=== PATIENT | male | born 1935 | race Caucasian/White ===

== ENCOUNTER 2020-10-27 18:25 | Inpatient (IN) | payer MEDICARE ==
--- NOTE | 2020-10-27 18:55 | NUR ---
ON UNIT PT TRANSPORTED ONTO UNIT VIA W/C BY SECURITY AND LAW ENFORCEMENT, NO ACUTE DISTRESS NOTED AT THIS TIME. PT IS ALERT AND ORIENTED X 2, ABLE TO ANSWER QUESTIONS APPROPRIATELY.
[2020-10-27 19:10] VITALS: BP 140/92
--- NOTE | 2020-10-27 19:10 | NUR ---
NOTIFICATION DR. WHITING AND DR. CELESTIN NOTIFIED OF PT ON UNIT. RECEIVED ORDERS FROM DR. WHITING FOR STAT EKG.
--- NOTE | 2020-10-27 19:12 | NUR ---
RT RT NOTIFIED OF NEED FOR STAT EKG.
--- NOTE | 2020-10-27 19:25 | NUR ---
STATUS Sarah KOHLI RN OBTAINING APICAL PULSE FROM PT, WHEN PT REPORTED FEELING "LIGHTHEADED." PT WAS ASSISTED TO BED AND PLACED IN SF POSITION BY Sarah KOHLI RN AND Alok JEFFERS LVN. PT RESPONDING APPROPRIATELY, MANUAL BP OF 140/94 OBTAINED, FSBS 218. PT STATES, "I GET THESE SPELLS ALL THE TIME AT HOME, AND I TAKE ONE OF THOSE WHITE LITTLE PILLS THAT GETS ME FROM A TO B." CHEST RISE AND FALL SYMMETRICAL AND NONLABORED, DENIES CHEST PAIN/DISCOMFORT AT THIS TIME. Sarah KOHLI RN IN ROOM WITH PT AT THIS TIME.
--- NOTE | 2020-10-27 19:41 | NUR ---
RT RT AT BEDSIDE TO OBTAIN EKG.
--- NOTE | 2020-10-27 19:45 | PCM.EKG ---
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
--- NOTE | 2020-10-27 19:45 | NUR ---
HOSPITALIST DR WHITING IN PATIENTS ROOM. AFTER ASSESS OF PATIENT AND EKG, SYMPTOMS OF PATIENT DIZZINESS, SHORTNESS OF BREATH, DENIES CHEST PAIN BUT VOICES FEELING FUNNY DR WHITING ORDERED PATIENT TO BE ADMITTED TO [facility] UNIT FOR CARDIAC MONITORING DX A FIB. CONTACTED [facility], MESSAGE LEFT WITH DIEGO FOR ADMISSION.
--- NOTE | 2020-10-27 20:00 | NUR ---
PER CONTACT WITH INNA ON [facility] PATIENT ROOM NUMBER WILL BE [id number], REPORT GIVEN TO INNA. PATIENT RESTING IN BED , VOICED HE WAS HUNGRY, SANDWICH AND DIET COKE GIVEN. ALSO NOTIFIED DR CELESTIN OF PATIENT TO BE ADMITTED TO [facility], NOT ADMITTED TO [facility] AT THIS TIME DUE TO MEDICAL.
[2020-10-27] MEDS ORDERED: TRIA15OI TP (20:09)
[2020-10-27] MEDS ORDERED: METF10007 PO (20:09)
[2020-10-27] MEDS ORDERED: MUPI1OIN6 TP (20:09)
[2020-10-27] MEDS ORDERED: GLIP5TAB10 PO (20:09)
[2020-10-27] MEDS ORDERED: ATOR40TA PO (20:09)
[2020-10-27] MEDS ORDERED: [UNRECOGNIZED DRUG - CODE] PO (20:09)
[2020-10-27] MEDS ORDERED: CLIN300C9 PO (20:09)
[2020-10-27] MEDS ORDERED: FAMO20TA5 PO (20:09)
[2020-10-27] MEDS ORDERED: FERR325T15 PO (20:09)
[2020-10-27] MEDS ORDERED: RAMI10CA59 PO (20:09)
--- NOTE | 2020-10-27 20:29 | PCM.HP ---
History of Present Illness Hx of Present Illness 85-year-old male with past medical history for heart disease, diabetes, chronic left foot wound presented to ER today due to dizziness. Patient has been experiencing 2 to 3 days of lightheadedness and dizziness when patient would get up would feel very dizzy and would have to lay down. Due to this patient went to ER at outside facility, at ER they found that he was having behavioral issues and to part because he believes that there are some "worms inside his left leg and sees a face looking out at him" in the wound in his left leg. Patient was then transferred from the outside ER to this facility to the behavioral health unit. In the behavioral health unit in the [facility], patient also noted feeling some lightheadedness, and short of breath. Patient otherwise denies any fevers, chills, chest pain, nausea, vomiting, palpitations, dysuria. Patient has some mild pain in his left leg but it is chronic. Patient denies the wound getting any larger but states that he can "hear the worms and insects in his legs eating his leg." Past medical history, heart disease, diabetes Surgical history: Denies any past medical surgical history Family history: Denies any family history Social: Patient was a heavy smoker alcohol user in the past but quit more than 10 years ago. Denies any illicit drug use Allergies: Denies any known drug allergies Review of Systems Constitutional: Weakness; No: Fever, Chills, Sweats Respiratory: Shortness of breath; No: Cough, Dry Cardiovascular: No: Chest Pain, Palpitations Gastrointestinal: No: Nausea, Vomiting Genitourinary: No Dysuria, No Frequency Skin: Rash, Lesions Neurological: Confusion; No: Weakness, Numbness Scheduled Atorvastatin 40MG (Lipitor 40MG), 1 TAB PO DAILY, (Reported) Clindamycin Hcl (Clindamycin Hcl), 300 MG PO DAILY24, (Reported) Famotidine (Famotidine), 1 TAB PO BID, (Reported) Ferrous Sulfate (Ferrous Sulfate), 1 TAB PO DAILY, (Reported) Glipizide (Glipizide), 1 TAB PO DAILY, (Reported) Meclizine Hcl (Meclizine Hcl), 12.5 MG PO DAILY24, (Reported) Metformin Hcl (Metformin Hcl), 1 TAB PO BID, (Reported) Mupirocin (Mupirocin), 1 APPLIC TP DAILY24, (Reported) Ramipril (Ramipril), 1 CAP PO QD, (Reported) Triamcinolone Acetonide (Triamcinolone Acetonide), 1 APPLIC TP DAILY24, (Reported) VTE VTE Risk Score VTE Risk: Score 0-1 = Low Risk (Aggressive mobilization; early ambulation; no VTE prophylaxis required) Score 2: Moderate Risk (Intermittent/Pneumatic Compression Device OR Lovenox/Heparin/Coumadin) Score 3-4: High Risk (Intermittent/Pneumatic Compression Device AND Lovenox/Heparin/Coumadin) Score > or =5: Highest Risk (Intermittent/Pneumatic Compression Device AND Lovenox/Heparin/Coumadin) Exam General Appearance: Alert, Oriented X3, Cooperative, No acute distress HEENT: Atraumatic, PERRLA, EOMI Respiratory: Clear to auscultation, Normal air movement Cardiovascular: Normal S1, Normal S2, No murmurs, Other (Irregular irregular rhythm tachycardia) Abdominal: Normal bowel sounds, Soft, No tenderness Extremities: No clubbing, No cyanosis Skin: Rash, Breakdown, Lesions, Other (Patient has 8 cm lesion ulceration in various stages of healing in left leg in the medial aspect of his ankle and lower leg.) Neuro: Normal gait, Normal speech, Strength at 5/5 X4 ext Psych/Mental Status: Mental status NL, Mood NL Assessment/Plan Assessment/Plan Assessment/Plan 85-year-old male with past medical history for hallucinations, heart disease, diabetes who was admitted to the floor due to A. fib with RVR. A. fib with RVR EKG done in behavioral health unit showed A. fib with heart rate of 137 Ordered metoprolol 50 mg p.o. Ordered metoprolol 5mg IV PRN as needed for tachycardia Ordered telemetry Ordered thyroid panel Diabetes Hold oral medication Sliding scale insulin Hypertension/hyperlipidemia Restart home medication Chronic left foot wound ER found no elevated white blood cell count, no fever Patient on clindamycin We will continue clindamycin treatment Disposition: Patient transferred to [facility] due to A. fib RVR as well as symptoms of shortness of breath and dizziness. Will treat with metoprolol see if it will control patient's rate. Will monitor in [facility] with telemetry. Once patient is medically clear can turn back to behavioral health unit. We will also have to monitor patient's left leg wound. JAZMIN WHITING MD Oct 27, 2020 20:29
[2020-10-27] MEDS ORDERED: TYLENOL PO PRN (20:30)
[2020-10-27] MEDS ORDERED: LOPRESSOR PO SCH (20:30)
[2020-10-27] MEDS ORDERED: TOPROL XL PO SCH (20:30)
--- NOTE | 2020-10-27 20:30 | NUR ---
YOHANNES TAVAREZ ON UNIT TO TAKE PATIENT VIA WHEELCHAIR TO MED SURGE FLOOR, PULSE 137, PATIENT VOICES HE FEELS SOME BETTER, VERONICA ON MED SURGE NOTIFIED.
[2020-10-27] MEDS ORDERED: LOPRESSOR ONE (20:44)
[2020-10-27 20:45] VITALS: BP 111/70
[2020-10-27] MEDS ORDERED: LOPRESSER IVP PRN (21:00)
[2020-10-27] MEDS ORDERED: HUMALOG SQ SCH (21:00)
[2020-10-27 21:51] LABS: BASOPHIL # 0.3 10^3/uL (0.0-0.1); BASOPHIL % 8.3 % (0.0-0.2); EOSINOPHIL # 0.1 10^3/uL (0.0-0.2); EOSINOPHIL % 1.3 % (0.0-5.0); LYMPHOCYTES # 1.32 10^3/uL1 (1.0-4.8); LYMPHOCYTES % 34.2 % (24.0-44.0); MONOCYTES # 0.3 10^3/uL (0.3-0.8); MONOCYTES % 7.3 % (5.0-12.0); NEUTROPHIL # 1.9 10^3/uL (1.8-7.7); NEUTROPHILS % 48.6 % (41.0-85.0); PLATELET COUNT 190 10^3/uL (150-400)
[2020-10-27 21:59] LABS: CALCIUM 8.5 mg/dL (8.4-10.5); CARBON DIOXIDE 22.8 mmol/L (20.0-32)
[2020-10-28] MEDS ORDERED: METO50TA6 PO (11:03)
== END 2020-10-27 21:58 | disposition short-term general hospital (02) | DRG 310 ==
LOC: EEVIPCON → GP 18:36 → MS 21:01 → GP 21:43
PROVIDERS: ADMIT Psychiatry & Neurology Psychiatry; ATTEND Psychiatry & Neurology Psychiatry
DX: I48.91 Unspecified atrial fibrillation (principal); E11.9 Type 2 diabetes mellitus without complications; F91.9 Conduct disorder, unspecified; E78.5 Hyperlipidemia, unspecified; I10 Essential (primary) hypertension; Z87.891 Personal history of nicotine dependence
CPT/HCPCS: 36415; 80053; 82948; 84436; 84439; 84443; 85025; 93005; 99285; G0378

== ENCOUNTER 2020-10-31 17:43 | Inpatient (IN) | payer MEDICARE ==
[~2020-10-31] VITALS: Ht 177.8 cm; Wt 113.4 kg
[2020-10-31 17:15] VITALS: BP 107/64
--- NOTE | 2020-10-31 17:15 | NUR ---
NEW ADMIT PT TRANSPORTED ONTO UNIT VIA W/C BY Elaina TANG CNA AND Shae SNELL LVN. RECEIVED REPORT FROM Shae SNELL LVN AND ASSUMED CARE OF PT. PT DOES NOT APPEAR TO BE IN ACUTE DISTRESS, DENIES PAIN AT THIS TIME.
[~2020-10-31 17:43] MED LIST: ATOR40TA PO; CLIN300C9 PO; FAMO20TA5 PO; FERR325T15 PO; FURO-80 PO; GLIP5TAB10 PO; METF10007 PO; METO-237 PO; METO50TA6 PO; MUPI1OIN6 TP; RAMI10CA59 PO; TRIA15OI TP; [UNRECOGNIZED DRUG - CODE] PO
--- NOTE | 2020-10-31 18:36 | NUR ---
DR. SABI CELESTIN NOTIFIED OF PT ARRIVAL TO UNIT, REPORTS HE WILL SEE PT IN A.M., NO NEW ORDERS RECEIVED.
--- NOTE | 2020-10-31 18:50 | NUR ---
DR. HI DO NOTIFIED OF PT ARRIVAL TO UNIT AND NEED FOR MED REC TO BE ADDRESSED, NO NEW ORDERS RECEIVED AT THIS TIME.
[2020-10-31] MEDS ORDERED: LASIX PO SCH (19:00)
[2020-10-31] MEDS ORDERED: BACTROBAN OINTMENT TP SCH (19:00)
[2020-10-31 19:24] VITALS: BP 108/52
[2020-10-31] MEDS: PEPCID PO SCH (21:00)
[2020-10-31] MEDS: HUMULIN R SQ SCH (21:00)
[2020-10-31] MEDS: TOPROL XL PO SCH (21:22)
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
--- NOTE | 2020-11-01 03:31 | NUR ---
REST PT. IS RESTING IN BED WITH EYES CLOSED AT THIS TIME. REPORT WILL BE GIVEN TO ONCOMING SHIFT AT 0630.
[2020-11-01 05:35] LABS: MEAN CORP HGB 32.8 pg (26-34); RED CELL DISTRIBUTION WIDTH 16.5 % (11.5-14.5)
[2020-11-01 06:05] LABS: CALCIUM 8.6 mg/dL (8.4-10.5); CARBON DIOXIDE 25.8 mmol/L (20.0-32)
[2020-11-01] MEDS: HUMULIN R SQ SCH ×4 (07:51→20:46)
[2020-11-01 08:23] VITALS: BP 92/63
[2020-11-01] MEDS: ALTACE PO SCH (08:29)
[2020-11-01] MEDS: TOPROL XL PO SCH (08:29)
[2020-11-01] MEDS ORDERED: KENALOG 0.1% TP SCH (08:30)
[2020-11-01] MEDS: FERROUS SULFATE PO SCH (08:55)
[2020-11-01] MEDS: PEPCID PO SCH ×2 (08:55→20:41)
[2020-11-01] MEDS: KENALOG 0.1% TP SCH (08:56)
[2020-11-01] MEDS: LIPITOR PO SCH (08:56)
[2020-11-01] MEDS: GLUCOTROL PO SCH (08:56)
[2020-11-01] MEDS: ANTIVERT PO SCH (08:56)
[2020-11-01] MEDS: BACTROBAN OINTMENT TP SCH (08:56)
[2020-11-01] MEDS: LASIX PO SCH (09:00)
--- NOTE | 2020-11-01 11:04 | NUR ---
TELEMED PT WAS SEEN BY DR. CELESTIN VIA TELEMED. RECEIVED ORDERS TO START BID RISPERDAL, SEE EMR. PT AGREEABLE WITH PLAN.
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
[2020-11-01] MEDS: RISPERDAL PO SCH ×2 (11:49→20:41)
--- NOTE | 2020-11-01 12:45 | PRM.CONS ---
Consultation Reason for Consult: Reason for Consultation: Medical management History of Present Illness Current and Past HX: (1) Delusional disorder Status: Acute ICD Code: F22 - Delusional disorders SNOMED: 65218492 (2) Atrial fibrillation Status: Chronic ICD Code: I48.91 - Unspecified atrial fibrillation SNOMED: 37647264 (3) DM2 (diabetes mellitus, type 2) Status: Chronic ICD Code: E11.9 - Type 2 diabetes mellitus without complications SNOMED: 30674074 (4) Hypertension Status: Chronic ICD Code: I10 - Essential (primary) hypertension SNOMED: 64911627 (5) Anemia Status: Chronic ICD Code: D64.9 - Anemia, unspecified SNOMED: 076035977 (6) CHF (congestive heart failure) Status: Acute ICD Code: I50.9 - Heart failure, unspecified SNOMED: 49375231 (7) CKD (chronic kidney disease) Status: Chronic ICD Code: N18.9 - Chronic kidney disease, unspecified SNOMED: 434000833 History of Patient Comments 85-year-old male who is being admitted to behavioral health unit for hallucinations and delusional disorder. Patient was just released from the medical unit after being treated for atrial fibrillation with rapid ventricular response, congestive heart failure, chronic kidney disease, anemia, hypertension. Patient denies shortness of breath or chest pain. Objective Vitals and I/O Vital Sign - Last 24 Hours 11/01/20 11/01/20 11/01/20 11/01/20 08:23 08:29 08:29 09:00 Temp 98.0 Pulse 82 82 Resp 20 B/P (MAP) 92/63 (73) 92/63 92/63 92/63 Pulse Ox 97 O2 Delivery Room Air Intake and Output 11/01/20 06:59 Intake Total 784 ml Output Total 375 ml Balance 409 ml General: Alert, Cooperative, No acute distress HEENT: Atraumatic, PERRLA, EOMI Neck: Supple Lungs: Clear to auscultation, Other (Few bibasilar crackles) Heart: No murmurs, Other (Irregular irregular) Abdomen: Normal bowel sounds, Soft, No tenderness Extremities: No clubbing, No cyanosis Skin: Other (Lower leg chronic skin changes/pigmentation) Neuro: Normal speech, Normal tone, Sensation intact Psych/Mental Status: Other (Slightly confused) All Results(Lab/Rad) Laboratory Tests Test 10/31/20 21:01 11/01/20 05:21 11/01/20 07:49 11/01/20 11:40 Bedside Glucose 135 168 151 White Blood Count 3.7 10^3/uL Red Blood Count 2.29 10^6/uL Hemoglobin 7.5 g/dL Hematocrit 22.6 % Mean Corpuscular Volume 98.7 fL Mean Corpuscular Hemoglobin 32.8 pg Mean Corpuscular Hemoglobin Concent 33.2 g/dL Red Cell Distribution Width 16.5 % Platelet Count 178 10^3/uL Mean Platelet Volume 11.6 fL Sodium Level 139 mmol/L Potassium Level 4.3 mmol/L Chloride Level 104.0 mmol/L Carbon Dioxide Level 25.8 mmol/L Glucose Level 149 mg/dL Blood Urea Nitrogen 41 mg/dL Creatinine 1.73 mg/dL Calcium Level 8.6 mg/dL Anion Gap 13.5 Estimated GFR () 45.6 Est GFR (CKD-EPI)(Non-Afr Ecuadorean) 37.7 BUN/Creatinine Ratio 23.0 Current Medications Medications (Trade) Dose Ordered Sig/Reva Route PRN Reason Start Time Stop Time Status Last Admin Dose Admin Atorvastatin Calcium (Lipitor) 40 mg DAILY PO 11/01/20 09:00 12/01/20 08:59 11/01/20 08:56 Famotidine (Pepcid) 20 mg BID PO 10/31/20 21:00 11/30/20 20:59 11/01/20 08:55 Ferrous Sulfate (Ferrous Sulfate) 325 mg DAILY PO 11/01/20 09:00 12/01/20 08:59 11/01/20 08:55 Furosemide (Lasix) 40 mg DAILY24 PO 10/31/20 19:00 10/31/20 19:29 DC Glipizide (Glucotrol) 5 mg DAILY PO 11/01/20 09:00 12/01/20 08:59 11/01/20 08:56 Metoprolol Succinate (Toprol Xl) 50 mg DAILY PO 10/31/20 21:00 11/30/20 20:59 10/31/20 21:22 Mupirocin (Bactroban Ointment) 1 gm DAILY24 TP 10/31/20 19:00 10/31/20 19:29 DC Meclizine HCl (Antivert) 12.5 mg DAILY24 PO 11/01/20 08:30 12/01/20 08:29 11/01/20 08:56 Ramipril (Altace) 10 mg DAILY PO 11/01/20 09:00 12/01/20 08:59 Triamcinolone Acetonide (Kenalog 0.1%) 1 gm DAILY24 TP 11/01/20 08:30 11/01/20 08:35 DC Insulin Human Regular (Humulin R) ACHS SQ 10/31/20 21:00 11/30/20 20:59 Furosemide (Lasix) 40 mg DAILY PO 11/01/20 09:00 11/30/20 18:59 Mupirocin (Bactroban Ointment) 1 gm DAILY TP 11/01/20 09:00 11/30/20 18:59 Triamcinolone Acetonide (Kenalog 0.1%) 1 gm DAILY24 TP 11/01/20 09:00 12/01/20 08:59 Risperidone (Risperdal) 0.5 mg BID PO 11/01/20 12:00 12/01/20 11:59 11/01/20 11:49 Medication Reconciliation Scheduled Atorvastatin 40MG (Lipitor 40MG), 1 TAB PO DAILY, (Reported) Famotidine (Famotidine), 1 TAB PO BID, (Reported) Ferrous Sulfate (Ferrous Sulfate), 1 TAB PO DAILY, (Reported) Furosemide (Lasix), 40 MG PO DAILY24 Glipizide (Glipizide), 1 TAB PO DAILY, (Reported) Meclizine Hcl (Meclizine Hcl), 12.5 MG PO DAILY24, (Reported) Metoprolol Succinate (Metoprolol Succinate), 1 TAB PO DAILY Metoprolol Tartrate 50MG (Lopresser 50MG), 50 MG PO DAILY Mupirocin (Mupirocin), 1 APPLIC TP DAILY24, (Reported) Ramipril (Ramipril), 1 CAP PO QD, (Reported) Triamcinolone Acetonide (Triamcinolone Acetonide), 1 APPLIC TP DAILY24, (Reported) Discontinued Medications Clindamycin Hcl (Clindamycin Hcl), 300 MG PO DAILY24, (Reported) Discontinued Reason: Discontinue Metformin Hcl (Metformin Hcl), 1 TAB PO BID, (Reported) Discontinued Reason: HOLD Subjective Subjective Date: Nov 01, 2020 Time: 11:00 Subjective 85-year-old male being admitted to the behavioral health unit for management of delusional disorder/recommendations. Patient was just released from the medical unit after being treated for atrial fibrillation obstructive trigger response. Work-up patient included echo which showed depressed ejection fraction of 40%. Patient was placed on diuretics, and. Patient is on TONY inhibitor. Also patient was started on metoprolol for A. fib with RVR. Patient also has been anemic, unable to give anticoagulation because of the drop in hemoglobin. His hemoglobin the last 24 hours appears to be stable. Patient also has history of chronic kidney disease. No new complaints today. VTE VTE Risk Total Score: 3 VTE Risk Score VTE Risk: Score 0-1 = Low Risk (Aggressive mobilization; early ambulation; no VTE prophylaxis required) Score 2: Moderate Risk (Intermittent/Pneumatic Compression Device OR Lovenox/Heparin/Coumadin) Score 3-4: High Risk (Intermittent/Pneumatic Compression Device AND Lovenox/Heparin/Coumadin) Score > or =5: Highest Risk (Intermittent/Pneumatic Compression Device AND Lovenox/Heparin/Coumadin) Antico:Hep/LMWH/Coum/Xarelto: No Mechanical device ordered: Yes Reasons not ordering prophylax: Renal impairment, At risk for falls, Tx not tolerated Plan Assessment 85-year-old male being admitted to the behavioral health unit for management of delusional disorder/recommendations. Patient was just released from the medical unit after being treated for atrial fibrillation obstructive trigger response. Work-up patient included echo which showed depressed ejection fraction of 40%. Patient was placed on diuretics, and. Patient is on TONY inhibitor. Also patient was started on metoprolol for A. fib with RVR. Patient also has been anemic, unable to give anticoagulation because of the drop in hemoglobin. His hemoglobin the last 24 hours appears to be stable Plan My Orders - HI BACON MD Procedure Category Date Status Time Accucheck NURORDERS 10/31/20 Transmitted 18:42 Atorvastatin Calcium PHA 11/01/20 In Process (Lipitor) 09:00 Famotidine (Pepcid) PHA 10/31/20 In Process 21:00 Ferrous Sulfate PHA 11/01/20 In Process (Ferrous Sulfate) 09:00 Furosemide (Lasix) PHA 10/31/20 Complete 19:00 Glipizide (Glucotrol) PHA 11/01/20 In Process 09:00 Metoprolol Succinate PHA 10/31/20 In Process (Toprol Xl) 21:00 Mupirocin (Bactroban PHA 10/31/20 Complete Ointment) 19:00 Cbc W/O Diff LAB 11/01/20 Complete 05:00 Basic Metabolic Panel LAB 11/01/20 Complete 05:00 Insulin Regular, PHA 10/31/20 In Process Human (Humulin R) 21:00 Furosemide (Lasix) PHA 11/01/20 In Process 09:00 Mupirocin (Bactroban PHA 11/01/20 In Process Ointment) 09:00 Meclizine Hcl PHA 11/01/20 In Process (Antivert) 08:30 Ramipril (Altace) PHA 11/01/20 In Process 09:00 Triamcinolone PHA 11/01/20 Complete Acetonide (Kenalog 08:30 Triamcinolone PHA 11/01/20 In Process Acetonide (Kenalog 09:00 Problems, incl. Pt HX: (1) Atrial fibrillation Status: Chronic ICD Code: I48.91 - Unspecified atrial fibrillation SNOMED: 67164918 Assessment & Plan: Currently rate is controlled. Continue with metoprolol. (2) Delusional disorder Status: Acute ICD Code: F22 - Delusional disorders SNOMED: 24175565 Assessment & Plan: Management as per psych/behavioral health (3) CHF (congestive heart failure) Status: Acute ICD Code: I50.9 - Heart failure, unspecified SNOMED: 58090616 Assessment & Plan: Continue with TONY inhibitor, beta-monserrat and diuretics (4) DM2 (diabetes mellitus, type 2) Status: Chronic ICD Code: E11.9 - Type 2 diabetes mellitus without complications SNOMED: 80862192 Assessment & Plan: Continue his oral hypoglycemic. We will place the patient on sliding scale with insulin coverage. (5) Hypertension Status: Chronic ICD Code: I10 - Essential (primary) hypertension SNOMED: 26746930 Assessment & Plan: Continue on metoprolol,And TONY inhibitor. (6) Anemia Status: Chronic ICD Code: D64.9 - Anemia, unspecified SNOMED: 675639052 Assessment & Plan: Continue to monitor hemoglobin hematocrit. (7) CKD (chronic kidney disease) Status: Chronic ICD Code: N18.9 - Chronic kidney disease, unspecified SNOMED: 520604469 Assessment & Plan: Appears to be stable. Problem Qualifiers (1) CHF (congestive heart failure): Heart failure chronicity: chronic HI BACON MD Nov 01, 2020 12:45
--- NOTE | 2020-11-01 14:25 | NUR ---
BIOPSYCHOSOCIAL: PT GOT UPSET BY ANOTHER PT AND WANTED TO STOP ASSESSMENTS AND GO LAY DOWN IN HIS ROOM. PT STATED "IT'S BEEN A LONG DAY. I AM EXHAUSTED AND NEED TO GO LAY DOWN. THEN WE CAN FINISH TALKING". Addendum: 11/01/20 at 1627 by Rachele Rao - FRONT SERVICES AGENT SW Amended: Links added.
--- NOTE | 2020-11-01 16:01 | NUR ---
GMAS SCORE 09/06: FINDINGS INDICATE PT IS WITHIN "NORMAL" RANGE. Addendum: 11/01/20 at 1627 by Rachele Mascorro LMSW SW Amended: Links added.
--- NOTE | 2020-11-01 16:10 | NUR ---
MMSE SCORE 8: FINDINGS INDICATE SEVERE IMPAIRMENT. PT WAS UNABLE TO COMPLETE SOME PARTS OF THE ASSESSMENT AT THIS TIME. PT ONLY ORIENTED TO PERSON AT THIS TIME. Addendum: 11/01/20 at 1627 by Rachele CUNNINGHAM Amended: Links added.
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
[2020-11-01 19:26] VITALS: BP 123/63
--- NOTE | 2020-11-02 00:20 | NUR ---
CBC FROM 11/01/[address] DO REFERENCE CBC RESULTS, NO NEW ORDERS.
--- NOTE | 2020-11-02 03:10 | NUR ---
PATIENT RESTLESS AND AGITATED BEING IN ROOM WITH OTHER PATIENT, PATIENT VOICES TOO MUCH TRAFFIC AND NOISE, CANT SLEEP. OFFERED X 2 TO MOVE PATIENT TO DIFFERENT ROOM, PATIENT HAD REFUSED. AT THIS TIME PATIENT AGREES TO MOVE TO ROOM 212 A SO HE IS IN ROOM WITHOUT OTHER PATIENT AND IS ALSO ACROSS FROM NURSES STATION. PATIENT ROOM STATUS CHANGED TO ROOM 212 A.
--- NOTE | 2020-11-02 05:18 | NUR ---
P.I.R.P. P. ALTERATION IN THOUGHT PROCESS I. PROVIDE EVERY 15 MINUTE CHECKS, PROVIDE SAFE ENVIRONMENT, PROVIDE MEDICATIONS ORDERED PER MD, PROVIDE TASK ORIENTED GROUP ACTIVITY AND ENCOURAGE PARTICIPATION. PROVIDE 1:1 INTERVENTION TO ALLOW PATIENT TO EXPRESS FEELINGS. MONITOR FOR CHANGES IN MOOD OR THOUGHT PROCESS, RE DIRECT NEEDED. R. PATIENT TOOK MEDS ORDERED, ATTENDED GROUP ACTIVITY, VOICED HE HAS FINANCIAL PROBLEMS OVER LAST SEVERAL MONTHS EVEN HAVING PROBLEMS S BUYING FOOD. AFTER GROUP VOICED THIS WAS THE BEST DAY HE HAS HAD IN A LONG TIME, DENIES ANXIETY, DENIED DEPRESSION, IS NOTED VOICING HE IS FINALLY GETTING HELP FROM THE [facility] FOR THE WORMS IN HIS LEG. HE IS VERY RELIEVED. LATER WAS AGITATED VOICING THE ROOM HE SHARED HAD TOO MUCH TRAFFIC AND NOISE AND HE COULD NOT SLEEP. PATIENT WAS ALSO ARGUMENTATIVE AT THAT TIME, PATIENT AGREED AFTER BEING OFFERED FOR A THIRD TIME TO MOVE TO A ROOM WHERE HE WOULD BE ONLY PATIENT AND BE ACROSS FROM NURSES STATION, PATIENT SLEPT BETTER AFTER THAT. PATIENT IS ALERT ORIENTED TO PERSON AND PLACE SOME FORGETFUL OF TIME AND DID BECOME SOME CONFUSED PRIOR TO CHANGING ROOMS, HAS TO BE REMINDED HE WAS IN HOSPITAL. NO PRN MEDS ADMINISTERED THIS SHIFT. P. CONTINUE CURRENT PLAN OF CARE.
[2020-11-02 08:00] VITALS: BP 154/87
[2020-11-02] MEDS: HUMULIN R SQ SCH ×4 (08:06→20:28)
[2020-11-02] MEDS: ALTACE PO SCH (08:42)
[2020-11-02] MEDS: ANTIVERT PO SCH (08:43)
[2020-11-02] MEDS: LASIX PO SCH (08:43)
[2020-11-02] MEDS: GLUCOTROL PO SCH (08:43)
[2020-11-02] MEDS: RISPERDAL PO SCH ×2 (08:44→20:30)
[2020-11-02] MEDS: LIPITOR PO SCH (08:44)
[2020-11-02] MEDS: TOPROL XL PO SCH (08:44)
[2020-11-02] MEDS: PEPCID PO SCH ×2 (08:44→20:30)
[2020-11-02] MEDS: FERROUS SULFATE PO SCH (08:44)
[2020-11-02] MEDS: KENALOG 0.1% TP SCH (08:45)
[2020-11-02] MEDS: BACTROBAN OINTMENT TP SCH (08:45)
--- NOTE | 2020-11-02 09:55 | NUR ---
TELEMED PT WAS SEEN BY Filipe DIAZ NP. SEE MAR FOR NEW ORDERS.
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
[2020-11-02] MEDS ORDERED: RISPERDAL PO PRN ×2 (10:30→15:30)
--- NOTE | 2020-11-02 14:15 | NUR ---
BEHAVIOR PT INSISTING THAT HE IS ON BASE, OR HIS HOME. INSISTING THAT HIS BELONGINGS ARE IN THE THREE ROOMS AND BECOMES VERBALLY AGGRESSIVE WITH STAFF ON REDIRECTION. REORIENTATION AND REDIRECTING UNSUCCESSFUL. RISPERDAL 2MG PO GIVEN. PT ASKING WHERE HIS WALLET AND CHECKBOOK ARE. EXPLAINED IN SAFE IN SECURITY. PT REPLIED THAT MAKES 4 ROOMS NOW. PT CONTINUES TO BELIEVE IS ON BASE OR IN HOUSE.
--- NOTE | 2020-11-02 15:06 | NUR ---
CLARIFICATION RISPERDAL 2MG IS TO BE Q6 HOURS PRN PSYCHOSIS.
--- NOTE | 2020-11-02 15:24 | NUR ---
FOLLOW UP PT LYING IN BED QUIETLY. HAS HAD NO FURTHER OUTBURST TOWARDS STAFF.
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
[2020-11-02 19:33] VITALS: BP 138/63
[2020-11-02] MEDS: ATARAX PO PRN (20:30)
--- NOTE | 2020-11-02 20:45 | NUR ---
Medication pt.complains of sore on his leg beginning to itch a little,pt received Atarax 25mg po at this time, discuss with pt that this should help. Pt starts talking about the worms in his leg and how they got there. Will monitor pt for any adverse reaction
--- NOTE | 2020-11-03 05:01 | NUR ---
P.I.R.P. P. ALTERATION IN THOUGHT PROCESS I. PROVIDE EVERY 15 MINUTE CHECKS, PROVIDE SAFE ENVIRONMENT, PROVIDE MEDICATIONS ORDERED PER MD, PROVIDE TASK ORIENTED GROUP ACTIVITY AND ENCOURAGE PARTICIPATION. PROVIDE 1:1 INTERVENTION TO ALLOW PATIENT TO EXPRESS FEELINGS. MONITOR FOR CHANGES IN MOOD OR THOUGHT PROCESS, RE DIRECT NEEDED. R. PATIENT TOOK MEDS ORDERED, ATTENDED GROUP ACTIVITY, DENIES ANXIETY, DENIED DEPRESSION, IS CONFUSED DURING NIGHT, MORE SO WHEN FIRST AWAKENING. EASILY REDIRECTED. IS FORGETFUL OF TIME, ORIENTED TO PERSON AND PLACE. NO AGITATION, PRN ATARAX WAS ADMINISTERED AT 2030 FOR ITCHING, MED EFFECTIVE. PATIENT HAS BEEN COOPERATIVE. P. CONTINUE CURRENT PLAN OF CARE.
[2020-11-03] MEDS: HUMULIN R SQ SCH ×4 (07:30→20:38)
[2020-11-03 07:38] VITALS: BP 114/64
[2020-11-03] MEDS: BACTROBAN OINTMENT TP SCH (08:50)
[2020-11-03] MEDS: RISPERDAL PO SCH ×3 (08:54→20:43)
[2020-11-03] MEDS: ANTIVERT PO SCH (08:54)
[2020-11-03] MEDS: GLUCOTROL PO SCH (08:55)
[2020-11-03] MEDS: LIPITOR PO SCH (08:55)
[2020-11-03] MEDS: ALTACE PO SCH (08:55)
[2020-11-03] MEDS: FERROUS SULFATE PO SCH (08:55)
[2020-11-03] MEDS: PEPCID PO SCH ×2 (08:55→20:42)
[2020-11-03] MEDS: LASIX PO SCH (08:55)
[2020-11-03] MEDS: KENALOG 0.1% TP SCH (08:56)
[2020-11-03] MEDS: TOPROL XL PO SCH (08:56)
--- NOTE | 2020-11-03 12:58 | PRM.PN ---
Mood: do you really want to know- Sleep: 7.75 hours, Appetite: good Suidical thoughts: denies Homicidal thoughts: denies Recent stressors: it hurts 28/02, they are eating now, worms Family support: distant family Aggressive Behavior: annoyed about worms, Ability to Perform ADL'sc: directed of routine Psychotic sympstoms: this is really bothering me, insects, right there Manic Symptoms: no one county believes me, Living situation: asks if going to [facility] Family,PT,Surgical,&Current HX: (1) Delusional disorder Anxity Symptoms: about tactile, Anger/Irritablility: appeared annoyed, discomfort, Muscle Strength & Tone: WNL Gait & Station: Normal stance/post/gait (mildly short, and slow steps but no change since admission- baseline) Appearance: Well groomed/hygience Attitude & Behaviour: Cooperative/Pleasant Mood & Affect: Full Orientation: Disoriented to situation Attention/Concentration: Fair attention, Fair concentration Speech: Reg rate/vol/rhyth/prosod Judgement/Insight: Fair judgement, Poor insight Thought Process: Loose Language: Honduran Thought content/Abnormal/Psych: A/V Wolfe (tactile- belief worms in legs, ) Fund of Knowledge: WNL Associations: WNL/Normal Associations Constitutional: None Neurological: None Psychiatric: Psychosis [place] I: delusional disorder, dementia Assessment/Plan Assessment/Plan Plan Nursing - He is doing fairly well still saying worms in leg wounds hydroxizine last night before bed risperdal 183- helpful, calmed agitation not agitated today, has been awake, participated in therapies admission hemoglobin 8.6, 11/01 7.6, Vital Signs Date Time Temp Pulse Resp B/P (MAP) Pulse Ox O2 Delivery O2 Flow Rate FiO2 11/03/20 08:56 72 114/64 11/03/20 07:38 98.1 18 97 Current Medications Medications (Trade) Dose Ordered Sig/Reva PRN Reason Start Time Stop Time Status Last Admin Atorvastatin Calcium (Lipitor) 40 mg DAILY 11/01/20 09:00 12/01/20 08:59 11/03/20 08:55 Famotidine (Pepcid) 20 mg BID 10/31/20 21:00 11/30/20 20:59 11/03/20 08:55 Ferrous Sulfate (Ferrous Sulfate) 325 mg DAILY 11/01/20 09:00 12/01/20 08:59 11/03/20 08:55 Furosemide (Lasix) 40 mg DAILY 11/01/20 09:00 11/30/20 18:59 11/03/20 08:55 Glipizide (Glucotrol) 5 mg DAILY 11/01/20 09:00 12/01/20 08:59 11/03/20 08:55 Hydroxyzine HCl (Atarax) 25 mg Q6HR PRN ITCHING or anxiety or sleep 11/02/20 10:30 12/02/20 10:29 11/02/20 20:30 Insulin Human Regular (Humulin R) ACHS 10/31/20 21:00 11/30/20 20:59 11/01/20 20:46 Meclizine HCl (Antivert) 12.5 mg DAILY24 11/01/20 08:30 12/01/20 08:29 11/03/20 08:54 Metoprolol Succinate (Toprol Xl) 50 mg DAILY 10/31/20 21:00 11/30/20 20:59 11/03/20 08:56 Mupirocin (Bactroban Ointment) 1 gm DAILY 11/01/20 09:00 11/30/20 18:59 Ramipril (Altace) 10 mg DAILY 11/01/20 09:00 12/01/20 08:59 11/03/20 08:55 Risperidone (Risperdal) 0.5 mg BID 11/01/20 12:00 12/01/20 11:59 11/03/20 08:54 Risperidone (Risperdal) 2 mg Q6HR PRN psychosis 11/02/20 15:30 12/02/20 10:29 Triamcinolone Acetonide (Kenalog 0.1%) 1 gm DAILY24 11/01/20 09:00 12/01/20 08:59 11/03/20 08:56 summary: slept well after higher dose of risperidone and hydroxyzine closer to bed time CONSENT: Consent was obtained by patient for telemedicine visit. Consent was obtained for the presence of staff member throughout encounter. Privacy was maintained throughout encounter PLAN: 1. CONTINUE BEHAVIORAL HEALTH MANAGEMENT. 2. Continued tactile hallucinations, increase risperidone 1mg to TID, is more distressed with tactile worms 3. ALL PATIENT QUESTIONS ANSWERED RELATED TO MEDICATIONS, PLAN OF CARE, AND EXPECTED OUTCOMES. 4. SAFETY PLAN DISCUSSED. 5. CBC and cmp and rule out changes secondary to antipsychotic medication 6. EKG prior to discharge to rule out changes - prefer after higher dose received TOM DIAZ NP Nov 03, 2020 12:58
[2020-11-03] MEDS ORDERED: RISPERDAL PO SCH (13:30)
[2020-11-03] MEDS: ATARAX PO PRN (13:35)
--- NOTE | 2020-11-03 13:36 | NUR ---
Behavior Patient anxious. States, "I have worms chewing on my wounds right now!" Hydroxyzine 25 mg PO for the anxiety.
[2020-11-03 13:51] LABS: BASOPHIL # 0.4 10^3/uL (0.0-0.1); BASOPHIL % 12.2 % (0.0-0.2); EOSINOPHIL # 0.1 10^3/uL (0.0-0.2); EOSINOPHIL % 2.6 % (0.0-5.0); LYMPHOCYTES # 1.14 10^3/uL1 (1.0-4.8); LYMPHOCYTES % 36.5 % (24.0-44.0); MONOCYTES # 0.2 10^3/uL (0.3-0.8); MONOCYTES % 5.4 % (5.0-12.0); NEUTROPHIL # 1.4 10^3/uL (1.8-7.7); NEUTROPHILS % 43.3 % (41.0-85.0); PLATELET COUNT 206 10^3/uL (150-400); RED CELL DISTRIBUTION WIDTH 16.7 % (11.5-14.5)
[2020-11-03 14:07] LABS: CALCIUM 8.9 mg/dL (8.4-10.5); CARBON DIOXIDE 21.7 mmol/L (20.0-32)
--- NOTE | 2020-11-03 14:45 | NUR ---
FOLLOW UP PATIENT RELAXED. NO LONGER MAKING STATEMENTS ABOUT WORMS IN HIS WOUNDS. WOUND CARE COMPLETED.
--- NOTE | 2020-11-03 16:39 | NUR ---
PIRP P: ALTERED THOUGHT PROCESS; NONCOMPLIANCE WITH MEDICATIONS I: Q 15 minute monitoring; Safety equipment as needed and ordered; Provide a safe supportive environment; Provide medications as ordered with explanation of need and purpose; Give clear and simple instructions; Provide group activities, encourage socialization; 1:1 allowing for expression of thoughts and feelings; assess for depression, anxiety, SI/HI, psychosis; Assist patient to differentiate between internal and external reality; Redirect and reorient as needed; Monitor response to medications; R: Q 15 minute monitoring as logged; Using a wheelchair and lucas socks; Environment monitored for safety, non-patient areas secure, exits locked, rooms picked up; Patient took all medications as ordered. Stated, "whatever I need to do in order to get better." Patient redirected and reoriented as needed through the day secondary to forgetful; Up out of bed and in the dayroom for music therapy and OT, has socialized well with others; No adverse effects noted with medications; PRN given for psychosis with anxiety R/T tactile hallucinations, patient thinks there are worms/insects in his wounds; 1:1 frequently with staff, expresses thoughts/reminisces P: DC planning for patient safety
[2020-11-03 19:15] VITALS: BP 104/58
--- NOTE | 2020-11-04 05:21 | NUR ---
P.I.R.P. P. ALTERATION IN THOUGHT PROCESS I. PROVIDE EVERY 15 MINUTE CHECKS WITH DOCUMENTATION, PROVIDE SAFE ENVIRONMENT, PROVIDE MEDICATIONS ORDERED PER MD, PROVIDE TASK ORIENTED GROUP ACTIVITY AND ENCOURAGE PARTICIPATION. PROVIDE 1:1 INTERVENTION TO ALLOW PATIENT TO EXPRESS FEELINGS. MONITOR FOR CHANGES IN MOOD OR THOUGHT PROCESS, RE DIRECT AND RE ORIENT NEEDED. R. PATIENT REPORTS HE IS READY FOR THE MONTH OF OCTOBER TO BE OVER OCTOBER HAS ALWAYS BEEN BAD FOR HIM. PATIENT IS ORIENTED TO PERSON AND THAT HE IS IN HOSPITAL BUT COULD NOT REMEMBER NAME OF TOWN, WAS FORGETFUL OF DATE. DID NOT MENTION WORMS THIS SHIFT, NO HALLUCINATIONS OR DELUSIONS NOTED OR VOICED, DENIES DEPRESSION OR ANXIETY, DID TALK ABOUT A MASH TUB COOKER CALLING HIM ABOUT BEING HERE. PATIENT TOOK MEDS ORDERED, NO PRN MEDS THIS SHIFT, ATTENDED GROUP ACTIVITY AND BEGAN TEACHING STAFF CARD GAME HE ENJOYED A CHILD. PATIENT HAS NOT SLEPT WELL THIS SHIFT THUS FAR HAS SLEPT 3.75 HOURS. P. CONTINUE CURRENT PLAN OF CARE.
[2020-11-04 05:55] VITALS: BP 100/58
--- NOTE | 2020-11-04 06:10 | NUR ---
DIZZINESS PATIENT REPORTED DIZZINESS AND NOT FEELING WELL AND NEEDING TO RETURN TO BED AFTER HE HAD BEEN PROPELLING HIMSELF IN HALLWAY FOR APPROXIMATELY 25 MINUTES, ASSISTED PATIENT TO ROOM, VS TAKEN, BP MANUAL TO RIGHT ARM 100/58, APICAL PULSE 68 OCCASIONAL IRREGULARITY, RESPS 20, PULSE OX 98 PERCENT. AFTER LAYING DOWN AND DRINKING SMALL AMOUNT DIET COKE PATIENT VOICED HE WAS FEELING SOME BETTER, AT THIS ENTRY PATIENT VOICED HE FELT FINE NOW JUST WANTED TO REST, BREATHING EQUAL AND UNLABORED. PATIENT DENIES CHEST PAIN AND DENIED SHORTNESS OF BREATH DURING THIS EPISODE.
[2020-11-04 07:06] VITALS: BP 100/58
[2020-11-04] MEDS: HUMULIN R SQ SCH ×4 (07:30→21:00)
[2020-11-04 08:24] VITALS: BP 124/61
[2020-11-04] MEDS: FERROUS SULFATE PO SCH (08:51)
[2020-11-04] MEDS: RISPERDAL PO SCH ×3 (08:51→21:56)
[2020-11-04] MEDS: ANTIVERT PO SCH (08:53)
[2020-11-04] MEDS: LASIX PO SCH (08:55)
[2020-11-04] MEDS: ALTACE PO SCH (08:55)
[2020-11-04] MEDS: TOPROL XL PO SCH (08:55)
[2020-11-04] MEDS: LIPITOR PO SCH (08:56)
[2020-11-04] MEDS: PEPCID PO SCH ×2 (08:56→21:00)
[2020-11-04] MEDS: KENALOG 0.1% TP SCH (08:57)
[2020-11-04] MEDS: GLUCOTROL PO SCH (08:57)
[2020-11-04] MEDS: BACTROBAN OINTMENT TP SCH (09:00)
--- NOTE | 2020-11-04 09:41 | NUR ---
behavior Patient experiencing tactile hallucinations to left lower leg wound. States, "These worms are really working in there!" Hydroxyzine given for the anxiety along with wound care.
--- NOTE | 2020-11-04 10:45 | NUR ---
Follow up Treatment and medication effective as evidenced by no longer restless and complaining. States, "We are winning."
--- NOTE | 2020-11-04 11:46 | PRM.PN ---
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, Psychotic sympstoms: tactile, reports discomfort from worms Manic Symptoms: he has done some walking, Living situation: was living at home by himself Family,PT,Surgical,&Current HX: (1) Delusional disorder Anxity Symptoms: restless, anxious, he is redirectable Muscle Strength & Tone: WNL Gait & Station: Normal stance/post/gait Appearance: Well groomed/hygience Attitude & Behaviour: Cooperative/Pleasant Mood & Affect: Full Orientation: Disoriented to place, Disoriented to time, Disoriented to situation (only part of the time, often knows he is in the hospital, knows to ask nurses for help or with questions) Attention/Concentration: Fair attention, Fair concentration Speech: Reg rate/vol/rhyth/prosod Judgement/Insight: Fair judgement, Fair insight Thought Process: Circumferential Language: Serbian Thought content/Abnormal/Psych: A/V Wolfe (tactile), Delusions Fund of Knowledge: WNL Associations: WNL/Normal Associations Constitutional: None Neurological: Dizziness (he reported from being exhausted, ) Psychiatric: Psychosis [place] I: delusional disorder, rule out dementia Assessment/Plan Assessment/Plan Plan Nursing - hydroxizine given, wound care was done wound appearance, improved, after wound care/hydroxizine, reported feeling much better, delusional thinking; he will start obsessing - about the worms, no music therapy today, not as distracted, he is more restless without the structure, he will ask repetitive questions, does require re-orientation, [place], in his town [facility], they did not believe him, patient: getting ready to eatat, he cannot tell me what is his on plate, one of better meals worms, we are going to win, wer are going to kill htem, they are dying, medicated down, "glad you came" understand his heart can be up and down, understands what and ekg is Laboratory Tests 11/03/20 11:58: Bedside Glucose 187H 11/03/20 13:42: White Blood Count 3.1L, Red Blood Count 2.61L, Hemoglobin 8.6L, Hematocrit 26.1L , Mean Corpuscular Volume 100.0, Mean Corpuscular Hemoglobin 33.0, Mean Cor puscular Hemoglobin Concent 33.0, Red Cell Distribution Width 16.7H, Platelet Count 206, Mean Platelet Volume 11.9H, Neutrophils (%) (Auto) 43.3, Lymphocytes (%) (Auto) 36.5, Monocytes (%) (Auto) 5.4, Neutrophils # (Auto) 1.4L, Lymphocytes # (Auto) 1.14, Monocytes # (Auto) 0.2L, Absolute Immature Gr anulocyte (auto 0, Absolute Eosinophils (auto) 0.1, Immature Granulocytes % 0.00, Eosinophils % 2.6, Basophils % 12.2H, Basophils # 0.4H, Sodium Level 136, Potassium Level 4.8, Chloride Level 102.0, Carbon Dioxide Level 21.7, Anion Gap 17.1, Blood Urea Nitrogen 41H, Creatinine 2.18*H, Estimated GFR () 35.0, Est GFR (CKD-EPI)(Non-Afr Irish) 28.9, BUN/Creatinine Ratio 18.0, Glucose Level 220H, Calcium Level 8.9, Total Bilirubin 0.6, Aspartate Amino Transf (AST/SGOT) 10, Alanine Aminotransferase (ALT/SGPT) 25, Alkaline Phosphatase 107, Total Protein 7.3, Albumin 3.5, Globulin 3.8, Albumin/Globulin Ratio 0.921 11/03/20 17:22: Bedside Glucose 149H 11/03/20 20:24: Bedside Glucose 157H 11/04/20 08:08: Bedside Glucose 153H Vital Signs Date Time Temp Pulse Resp B/P (MAP) Pulse Ox O2 Delivery O2 Flow Rate FiO2 11/04/20 08:55 124/61 11/04/20 08:55 90 11/04/20 08:24 96.6 18 97 Room Air Current Medications Medications (Trade) Dose Ordered Sig/Reva PRN Reason Start Time Stop Time Status Last Admin Hydroxyzine HCl (Atarax) 25 mg Q6HR PRN ITCHING or anxiety or sleep 11/02/20 10:30 12/02/20 10:29 11/03/20 13:35 Risperidone (Risperdal) 1 mg TID 11/03/20 15:00 12/03/20 13:29 11/04/20 08:51 Risperidone (Risperdal) 2 mg Q6HR PRN psychosis 11/02/20 15:30 12/02/20 10:29 summary: Does have to be reminded where he is, at times [place] [employer], rule out dementia but can be the psychosis/delusional disorder positive today about his lunch and says he feels like we are winning the war on the worms. sleep is not consistent yet, Bun is the same as earlier labs, the creatinine has increased, ratio wnl improvements to his cbc, (hx of chronic renal impairment) reports some dizziness but has hx of this, older order for meclizine CONSENT: Consent was obtained by patient for telemedicine visit. Consent was obtained for the presence of staff member throughout encounter. Privacy was maintained throughout encounter PLAN: 1. CONTINUE BEHAVIORAL HEALTH MANAGEMENT. 2. scheduled hydroxizine as BID as it appears to reduce tactile discomfort of "worms" out of open area 3. ALL PATIENT QUESTIONS ANSWERED RELATED TO MEDICATIONS, PLAN OF CARE, AND EXPECTED OUTCOMES. 4. SAFETY PLAN DISCUSSED. 5. EKG rule out changes due to antipsychotics, irregular heart rate - the above hr apical and bp manual TOM DIAZ NP Nov 04, 2020 11:46
--- NOTE | 2020-11-04 12:29 | PCM.EKG ---
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
--- NOTE | 2020-11-04 13:00 | NUR ---
Telemedicine Patient seen by Sheng Rae TELEGRAPH OFFICE MANAGER via telemedicine. EKG ordered. Hydroxyzine changed to scheduled from PRN.
--- NOTE | 2020-11-04 15:06 | NUR ---
Hospitalist Dr. Mitchell notified of EKG results. Notified RN, "Consistent with his chronic Atrial Fibrillation."
--- NOTE | 2020-11-04 17:53 | NUR ---
PIRP P: ALTERED THOUGHT PROCESS; I: Q 15 MINUTE MONITORING; PROVIDE A SAFE SUPPORTIVE ENVIRONMENT; 1:1 ALLOWING FOR EXPRESSION OF THOUGHTS AND FEELINGS; PROVIDE ALL MEDICATIONS WITH EXPLANATION OF NEED PURPOSE; REORIENT AND REDIRECT NEEDED; GIVE CLEAR SIMPLE INSTRUCTIONS TO PATIENT; ASSESS FOR DEPRESSION, ANXIETY,PSYCHOSIS, SI/HI; ENCOURAGE PATIENT TO SHOWER EVERY OTHER DAY AT THE MINIMUM R: Q 15 MINUTE MONITORING LOGGED; ALL NON-PATIENT AREAS LOCKED, EXITS SECURE, PATIENT ROOM ASSESS FOR SAFETY THROUGHOUT THE DAY WITH UNSAFE ITEMS REMOVED FROM ROOM, NON SLIP DARIEN SOCKS IN USE; PATIENT HAS BEEN SUBDUED SECONDARY TO "EXHAUSTED" SLEPT LESS THAN 4 HOURS PREVIOUS NIGHT, HAS RESTED IN HIS ROOM, NAPPING ON AND OFF THROUGH THE DAY; TOOK ALL OF HIS MEDICATIONS ORDERED; EASILY REDIRECTED, WITH REMINDERS FROM STAFF DUE TO FORGETFUL BEHAVIOR; TACTILE HALLUCINATIONS THIS MORNING WHICH IN TURN CAUSE PATIENT TO BE ANXIOUS, BELIEVING HE HAS "INSECTS CHEWING IN HIS WOUNDS," WOUND CARE COMPLETED AND HYDROXYZINE PROVIDED EARLY IN THE DAY HAS HELPED TO ALLEVIATE PATIENT'S CONCERNS EVIDENCED BY PATIENT STATEMENT, "WE ARE WINNING!" REFUSED TO SHOWER, PATIENT STATES HE IS TOO TIRED P: MONITOR SLEEP PATTERN, ENCOURAGE NIGHT TIME SLEEP >6 HOURS
[2020-11-04] MEDS: ATARAX PO SCH (21:00)
[2020-11-04 21:05] VITALS: BP 120/72
--- NOTE | 2020-11-04 22:30 | NUR ---
PATIENT REPORT PATIENT VOICED WHEN OTHER PATIENT WAS INTRUSIVE THAT MADE HIM FEEL EXHAUSTED AND HE JUST WANTED TO REST, VOICED HE HAS HAD FAMILY THAT WAS LIKE PATIENT.
--- NOTE | 2020-11-05 05:15 | NUR ---
P.I.R.P. P. ALTERATION IN THOUGHT PROCESS I. PROVIDE EVERY 15 MINUTE CHECKS WITH DOCUMENTATION, PROVIDE SAFE ENVIRONMENT, PROVIDE MEDICATIONS ORDERED PER MD, PROVIDE TASK ORIENTED GROUP ACTIVITY AND ENCOURAGE PARTICIPATION. PROVIDE 1:1 INTERVENTION TO ALLOW PATIENT TO EXPRESS FEELINGS. MONITOR FOR CHANGES IN MOOD OR THOUGHT PROCESS OR DELUSIONS, RE DIRECT AND RE ORIENT NEEDED. R. PATIENT TOOK MEDS ORDERED, NO PRN MEDS THIS SHIFT, PATIENT ATTENDED GROUP ACTIVITY, THEN WOKE AROUND 03:00 VOICED WAS NOT SLEEPY, PATIENT SOCIALIZED WITH NURSE IN DAYROOM FOR APPROXIMATELY 1 HOUR THEN LAID BACK DOWN TO SLEEP. PATIENT IS ORIENTED TO PERSON AND PLACE, FORGETFUL OF TIME. PATIENT HAS HAD DECREASED DELUSIONS OF WORMS TO LEG. TALKS MORE OF FINANCES. DENIES ANXIETY, DENIES DEPRESSION, DENIES SUICIDAL THOUGHTS. P. CONTINUE CURRENT PLAN OF CARE.
[2020-11-05] MEDS: HUMULIN R SQ SCH ×4 (07:30→20:56)
[2020-11-05 07:33] VITALS: BP_SYST 109; BP_SYST 114; BP_DIAS 62; BP_DIAS 69
[2020-11-05] MEDS: BACTROBAN OINTMENT TP SCH (09:00)
--- NOTE | 2020-11-05 09:04 | PRM.PN ---
Mood: 'awful' frustration, who is lead here, who is not lead Sleep: 5.5 hours, have not slept good in days, restless for 2 days Appetite: never lost this appetite, gotta feed this body 6'3" Suidical thoughts: DENIES Homicidal thoughts: DENIES Recent stressors: comes in overwhelmed,slumps on table, can't keep up Family support: only distant cousins Aggressive Behavior: not present Ability to Perform ADL'sc: gets dizzy with standing Psychotic sympstoms: tactile but improved, Manic Symptoms: today jumping thoughts Living situation: was living at home Family,PT,Surgical,&Current HX: (1) Delusional disorder Anxity Symptoms: today a bit anxious, like he has much to do Anger/Irritablility: denies Muscle Strength & Tone: WNL Gait & Station: Normal stance/post/gait Appearance: Well groomed/hygience Attitude & Behaviour: Cooperative/Pleasant Mood & Affect: Blunted Orientation: Disoriented to situation Attention/Concentration: Poor attention, Fair concentration Speech: hyperverbal Judgement/Insight: Fair judgement, Poor insight Thought Process: Circumferential Language: South African Thought content/Abnormal/Psych: A/V Wolfe, Delusions Fund of Knowledge: WNL Associations: WNL/Normal Associations Constitutional: None Neurological: Dizziness Psychiatric: Psychosis [place] I: delusional disorder Assessment/Plan Assessment/Plan Plan Nursing - reports his leg is much better, can still feel worms pleasant, not appearing paranoid as Tuesday participating in groups, he initiates his own self care, asked about time for wound care, stated what he wanted for routine starting with coffee and breakfast, Laboratory Tests 11/03/20 11:58: Bedside Glucose 187H 11/03/20 13:42: White Blood Count 3.1L, Red Blood Count 2.61L, Hemoglobin 8.6L, Hematocrit 26.1L , Mean Corpuscular Volume 100.0, Mean Corpuscular Hemoglobin 33.0, Mean Corpuscular Hemoglobin Concent 33.0, Red Cell Distribution Width 16.7H, Platelet Count 206, Mean Platelet Volume 11.9H, Neutrophils (%) (Auto) 43.3, Lymphocytes (%) (Auto) 36.5, Monocytes (%) (Auto) 5.4, Neutrophils # (Auto) 1.4L, Lymphocytes # (Auto) 1.14, Monocytes # (Auto) 0.2L, Absolute Immature Granulocyte (auto 0, Absolute Eosinophils (auto) 0.1, Immature Granulocytes % 0.00, Eosinophils % 2.6, Basophils % 12.2H, Basophils # 0.4H, Sodium Level 136, Potassium Level 4.8, Chloride Level 102.0, Carbon Dioxide Level 21.7, Anion Gap 17.1, Blood Urea Nitrogen 41H, Creatinine 2.18*H, Estimated GFR () 35.0, Est GFR (CKD-EPI)(Non-Afr Citizen Of [place]) 28.9, BUN/Creatinine Ratio 18.0, Glucose Level 220H, Calcium Level 8.9, Total Bilirubin 0.6, Aspartate Amino Transf (AST/SGOT) 10, Alanine Aminotransferase (ALT/SGPT) 25, Alkaline Phosphatase 107, Total Protein 7.3, Albumin 3.5, Globulin 3.8, Albumin/Globulin Ratio 0.921 11/03/20 17:22: Bedside Glucose 149H 11/03/20 20:24: Bedside Glucose 157H 11/04/20 08:08: Bedside Glucose 153H Vital Signs Date Time Temp Pulse Resp B/P (MAP) Pulse Ox O2 Delivery O2 Flow Rate FiO2 11/05/20 08:53 86 11/05/20 07:33 97.8 18 114/69 (84) 97 Current Medications Medications (Trade) Dose Ordered Sig/Reva PRN Reason Start Time Stop Time Status Last Admin Hydroxyzine HCl (Atarax) 25 mg BID 11/04/20 21:00 12/02/20 10:29 11/04/20 21:00 Risperidone (Risperdal) 1 mg TID 11/03/20 15:00 12/03/20 13:29 11/04/20 21:56 Risperidone (Risperdal) 2 mg Q6HR PRN psychosis 11/02/20 15:30 12/02/20 10:29 summary: disoriented to recent, not so sure why he is overwhelmed, burst of racing thoughts, some improvements to ekg, still irregular, infact no longer present, no long tachycardic, may be due to hemoglobin slight improvement, CONSENT: Consent was obtained by patient for telemedicine visit. Consent was obtained for the presence of staff member throughout encounter. Privacy was maintained throughout encounter PLAN: 1. CONTINUE BEHAVIORAL HEALTH MANAGEMENT. 2. CONTINUE WITH CURRENT MEDICATIONS although due to his report of poor sleep, not rested, add melatonin 3mg at hs 3. ALL PATIENT QUESTIONS ANSWERED RELATED TO MEDICATIONS, PLAN OF CARE, AND EXPECTED OUTCOMES. 4. SAFETY PLAN DISCUSSED. 5. TOM DIAZ NP Nov 05, 2020 09:04
[2020-11-05] MEDS: ANTIVERT PO SCH (09:12)
[2020-11-05] MEDS: LIPITOR PO SCH (09:12)
[2020-11-05] MEDS: PEPCID PO SCH ×2 (09:13→20:56)
[2020-11-05] MEDS: ATARAX PO SCH ×2 (09:13→20:56)
[2020-11-05] MEDS: RISPERDAL PO SCH ×3 (09:13→20:56)
[2020-11-05] MEDS: ALTACE PO SCH (09:13)
[2020-11-05] MEDS: FERROUS SULFATE PO SCH (09:13)
[2020-11-05] MEDS: TOPROL XL PO SCH (09:14)
[2020-11-05] MEDS: GLUCOTROL PO SCH (09:14)
[2020-11-05] MEDS: LASIX PO SCH (09:14)
[2020-11-05] MEDS: KENALOG 0.1% TP SCH (09:15)
--- NOTE | 2020-11-05 09:20 | NUR ---
TELEMED PT WAS SEEN BY Filipe DIAZ NP. RECEIVED ORDERS TO START MELATONIN AT HS, SEE EMR.
--- NOTE | 2020-11-05 17:39 | NUR ---
PIRP P: ALTERED THOUGHT PROCESS, FALL RISK I: Q15 MIN MONITORING, ASSESS FOR PSYCHOTIC SYMPTOMS, GIVE CLEAR AND SIMPLE INSTRUCTIONS, REDIRECT WITH VERBALIZATION, PROVIDE TASK-ORIENTED ACTIVITIES, PROVIDE 1:1 TO ENCOURAGE EXPRESSION OF FEELINGS, REINFORCE FALL PREVENTION TECHNIQUES AND APPROPRIATE USE OF ADAPTIVE EQUIPMENT, PROVIDE SAFE AND SUPPORTIVE ENVIRONMENT, GIVE MEDICATIONS ORDERED R: PT HAS BRIGHT, CHEERFUL AFFECT THROUGHOUT SHIFT. EXHIBITS PERIODS OF INCREASED RESTLESSNESS AND IRRITABILITY, IS ABLE TO BE REDIRECTED WITH VERBALIZATION. DENIES FEELINGS OF DEPRESSION, ANXIETY, SI/HI. NO HALLUCINATIONS NOTED, HAS MADE SOME DELUSIONAL STATEMENTS NOTED IN LATER PART OF SHIFT. DENIES SI/HI, NO PARANOIA NOTED. PT IS ALERT AND ORIENTED TO SELF AND TIME, FORGETFUL AT TIMES. HAS BEEN COOPERATIVE WITH ADLS, TAKES MEDICATIONS ORDERED, AND PARTICIPATES IN GROUP ACTIVITIES. INITIATES INTERACTION WITH STAFF AND PEERS, RESPONDS APPROPRIATELY TO APPROACH. P: REINFORCE FALL PREVENTION TECHNIQUES, USE CALM REASSURING APPROACH
[2020-11-05 20:24] VITALS: BP 102/65
[2020-11-05] MEDS: MELATONIN PO SCH (20:56)
--- NOTE | 2020-11-06 05:02 | NUR ---
PIRP- P- ALTERED THOUGHT PROCESS AND FALL RISK I- PROVIDE SAFE AND SUPPORTIVE ENVIRONMENT. OBSERVE BEHAVIORS, Q 15 MIN. MONITORING AND PROVIDE MEDICATION ORDERED. R- PT. ORIENTED TO NAME AND TOWN. RATED DEPRESSION 10 AND ANXIETY 6 . DENIES SI. ATTENDED GROUP,ATE SNACKS,PARTICIPATED IN EXERCISES AND DISCUSSION.PT. PT. STATED HE RATED DEPRESSION 10 BECAUSE ALL OF HIS FAMILY HAS AND HE IS LEFT HERE ALONE. TOOK MEDICATION ORDERED. REMAINS FALL RISK AND HAS USED W/C TONIGHT. HAS UNSTEADY GAIT WHEN WALKING SHORT DISTANCES IN HIS ROOM. PT. RESTING IN BED WITH EYES CLOSED AT THIS TIME. P- WILL CONTINUE TO OBSERVE BEHAVIORS,Q 15 MIN. MONITORING,PROVIDE MEDICATION ORDERED. PROVIDE ASSIST WHEN NEEDED.
[2020-11-06] MEDS: HUMULIN R SQ SCH ×4 (08:13→20:41)
[2020-11-06 08:33] VITALS: BP 98/50
[2020-11-06] MEDS: KENALOG 0.1% TP SCH (09:00)
[2020-11-06 09:10] VITALS: BP 93/48
[2020-11-06] MEDS: LIPITOR PO SCH (09:54)
[2020-11-06] MEDS: PEPCID PO SCH ×2 (09:55→20:38)
[2020-11-06] MEDS: FERROUS SULFATE PO SCH (09:55)
[2020-11-06] MEDS: TOPROL XL PO SCH (09:55)
[2020-11-06] MEDS: ANTIVERT PO SCH (09:55)
[2020-11-06] MEDS: GLUCOTROL PO SCH (09:55)
[2020-11-06] MEDS: RISPERDAL PO SCH ×3 (09:55→20:38)
[2020-11-06] MEDS: ALTACE PO SCH (09:56)
[2020-11-06] MEDS: ATARAX PO SCH ×2 (09:56→20:38)
[2020-11-06] MEDS: LASIX PO SCH (09:57)
[2020-11-06] MEDS: BACTROBAN OINTMENT TP SCH (09:57)
--- NOTE | 2020-11-06 10:52 | PRM.PN ---
Mood: good Sleep: 7.25 hrs Appetite: I have a big appetite Suidical thoughts: denies Homicidal thoughts: denies Family support: limited Aggressive Behavior: denies Ability to Perform ADL'sc: some assistance Psychotic sympstoms: less delusional about worms Living situation: self Anxity Symptoms: denies Anger/Irritablility: denies Appearance: Well groomed/hygience, Appears age stated Attitude & Behaviour: Cooperative/Pleasant Mood & Affect: Euthymic/appr/congruent Orientation: Fully oriented per interv Attention/Concentration: Fair attention, Fair concentration Speech: Reg rate/vol/rhyth/prosod Judgement/Insight: Fair judgement, Poor insight Thought Process: Linear/goal directed Language: Guyanese Thought content/Abnormal/Psych: Delusions (parasitosis) Fund of Knowledge: WNL Associations: WNL/Normal Associations Memory (recent and remote): Gross int/not form assess Constitutional: None Neurological: None Psychiatric: Psychosis (improving) [place] I: Delusional Disorder Assessment/Plan Assessment/Plan Assessment/Plan Nursing - Patient's appetite has been good. Slept 7.25hrs. Has trouble standing for long periods. Has made some odd comments --- women just want sex. He had 2 kids that , 15 yo and 10 yo ... one had all his blood sucked out of him. Reminiscing about - she would lay clothes out for him Can be a little needy/demanding Patient: Patient reports feeling better than when first admitted. He is happy that his concerns about worms in his leg are being treated seriously. He has been compliant with Risperdal, feels like his leg is getting better (wound looks smaller/better to him), and that we are "winning" against the worms. He states that he was previously feeling very distressed about the worms, felt like they were going to get the best of him, and states that this was affecting him "psychologically"; however, now he feels less anxious, less distressed, feels like there is hope that the worms will be gone and that he'll be able to go on with his life. (Patient becomes very happy/animated when talking about 'winning' against the worms -- states that nurses have been 'angels' and that I 'hit the target' in treating him). He does complain about some physical issues, stating "my body doesn't always work with my mind." Laboratory Tests 11/03/20 11:58: Bedside Glucose 187H 11/03/20 13:42: White Blood Count 3.1L, Red Blood Count 2.61L, Hemoglobin 8.6L, Hematocrit 26.1L , Mean Corpuscular Volume 100.0, Mean Corpuscular Hemoglobin 33.0, Mean Corpuscular Hemoglobin Concent 33.0, Red Cell Distribution Width 16.7H, Platelet Count 206, Mean Platelet Volume 11.9H, Neutrophils (%) (Auto) 43.3, Lymphocytes (%) (Auto) 36.5, Monocytes (%) (Auto) 5.4, Neutrophils # (Auto) 1.4L, Lymphocytes # (Auto) 1.14, Monocytes # (Auto) 0.2L, Absolute Immature Granulocyte (auto 0, Absolute Eosinophils (auto) 0.1, Immature Granulocytes % 0.00, Eosinophils % 2.6, Basophils % 12.2H, Basophils # 0.4H, Sodium Level 136, Potassium Level 4.8, Chloride Level 102.0, Carbon Dioxide Level 21.7, Anion Gap 17.1, Blood Urea Nitrogen 41H, Creatinine 2.18*H, Estimated GFR () 35.0, Est GFR (CKD-EPI)(Non-Afr [place]) 28.9, BUN/Creatinine Ratio 18.0, Glucose Level 220H, Calcium Level 8.9, Total Bilirubin 0.6, Aspartate Amino Transf (AST/SGOT) 10, Alanine Aminotransferase (ALT/SGPT) 25, Alkaline Phosphatase 107, Total Protein 7.3, Albumin 3.5, Globulin 3.8, Albumin/Globulin Ratio 0.921 11/03/20 17:22: Bedside Glucose 149H 11/03/20 20:24: Bedside Glucose 157H 11/04/20 08:08: Bedside Glucose 153H Vital Signs Date Time Temp Pulse Resp B/P (MAP) Pulse Ox O2 Delivery O2 Flow Rate FiO2 11/05/20 08:53 86 11/05/20 07:33 97.8 18 114/69 (84) 97 Current Medications Medications (Trade) Dose Ordered Sig/Reva PRN Reason Start Time Stop Time Status Last Admin Hydroxyzine HCl (Atarax) 25 mg BID 11/04/20 21:00 4/27/21 10:29 11/04/20 21:00 Risperidone (Risperdal) 1 mg TID 11/03/20 15:00 12/03/20 13:29 11/04/20 21:56 Risperidone (Risperdal) 2 mg Q6HR PRN psychosis 11/02/20 15:30 12/02/20 10:29 CONSENT: Consent was obtained by patient for telemedicine visit. Consent was obtained for the presence of staff member throughout encounter. 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 Patient seems to be responding positively to Risperdal, no ADRs; patient's delusional parasitosis seems to be improving, he is less fixated on it, and feels like 'worms' may go away and he'll be able to focus on living his life. Reviewed R/B/SEs of medications. PVU, agrees with plan. Plan 1. CONTINUE BEHAVIORAL HEALTH MANAGEMENT. 2. CONTINUE WITH CURRENT MEDICATIONS 3. ALL PATIENT QUESTIONS ANSWERED RELATED TO MEDICATIONS, PLAN OF CARE, AND EXPECTED OUTCOMES. 4. SAFETY PLAN DISCUSSED. 5. GISELA CELESTIN MD Nov 06, 2020 10:52
--- NOTE | 2020-11-06 11:01 | DIET.OP ---
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 Pt transferred from outside hospital for delusions r/t worms in L foot/ankle wound. When he arrived at [place], he had Afib with RVR so went to medical floor for stabilization prior to transfer to behavioral unit. Initial nutritional assessment done when pt on med floor (10/29) for DM consult. BG has been 147-206 mg/dl since being in [facility]. Current Diet Order/Nutrition S: 1800 2gm Na Pertinent Meds Current Medications Medications (Trade) Dose Ordered Sig/Reva PRN Reason Start Time Stop Time Status Last Admin Hydroxyzine HCl (Atarax) 25 mg BID 11/04/20 21:00 12/02/20 10:29 11/06/20 09:56 Melatonin (Melatonin) 3 mg HS 11/05/20 21:00 12/05/20 20:59 11/05/20 20:56 Risperidone (Risperdal) 1 mg TID 11/03/20 15:00 12/03/20 13:29 11/06/20 09:55 Pertinent Labs Laboratory Tests Test 11/04/20 11:44 11/04/20 16:51 11/04/20 21:26 11/05/20 07:29 Bedside Glucose 156 148 151 147 Test 11/05/20 11:39 11/05/20 17:12 11/05/20 20:22 Bedside Glucose 206 174 151 Height (Feet): 5 Height (Inches): 10 Current Weight: 250 %IBW: 151 Recent Weight Change: No Weight Status: Obese GI Symptoms: Last BM (11/04) Food Allergies: No Cultural/Ethnic/[employer] [place]: none known Skin Integrity/Comment: Yes (wound to L foot, chronic) Current %PO: Good(75-100%) Calories/Kcals/K-25 kcal/kg IBW Kcals Calculated: for wt loss Protein g/k-1.2 g/kg of IBW Protein Calculated: 89-107g Fluid: ml: or 1 ml/kcal Nutritional Problem: Nutr. Problems Present Problems: obesity Etiology: excess energy intake Signs/Symptoms: BMI of 35.9 kg/m^2 and CBW at 151% of IBW RD Comments: 1. Continue current diet. Snacks consistent with DM diet. 2. Tight blood glucose control to promote wound healing - Continue to monitor BG and correct as indicated. 3. Pt not appropriate for diet education at this time, RD to monitor Expected Outcomes BG 100-150 mg/dl the next 5 days. Diet education provided by RD as appropriate Discharge on cardiac/consistent carb diet Malnutrtion/Nutrition Risk Edu: No Notificiation Needed?: No Anayeli Bullock Nov 06, 2020 11:01
--- NOTE | 2020-11-06 17:34 | NUR ---
PIRP P: ALTERED THOUGHT PROCESS, FALL RISK I: Q15 MIN MONITORING, ASSESS FOR PSYCHOTIC SYMPTOMS, ASSIST WITH DIFFERENTIATING BETWEEN INTERNAL AND EXTERNAL REALITY, GIVE CLEAR AND SIMPLE INSTRUCTIONS, REDIRECT WITH VERBALIZATION, PROVIDE TASK-ORIENTED ACTIVITIES, PROVIDE 1:1 TO ENCOURAGE EXPRESSION OF FEELINGS, REINFORCE FALL PREVENTION TECHNIQUES AND APPROPRIATE USE OF ADAPTIVE EQUIPMENT, RE-ORIENT TO REALITY/SURROUNDINGS NEEDED, PROVIDE SAFE AND SUPPORTIVE ENVIRONMENT, GIVE MEDICATIONS ORDERED R: TAKES MEDICATIONS ORDERED, AND PARTICIPATES IN GROUP ACTIVITIES WITH MINIMAL PROMPTING REQUIRED. DENIES FEELINGS OF ANXIETY, SI/HI. RATES DEPRESSION AT 2-3. DOES VOICE THAT LEG FEELS BETTER WITH MEDICATION ON IT. VOICES NOT FEELING ANY WORMS, BUT WILL TELL WHEN HE DOES. PT INITIATES INTERACTION WITH STAFF AND PEERS, RESPONDS APPROPRIATELY TO APPROACH. PARTICIPATED IN GROUP THIS SHIFT. P: CONT TO EDUCATE ON FALL PRECAUTIONS
[2020-11-06 19:10] VITALS: BP 120/53
[2020-11-06] MEDS: MELATONIN PO SCH (20:38)
--- NOTE | 2020-11-07 05:25 | NUR ---
PIRP- P- ALTERED THOUGHT PROCESS AND FALL RISK I- PROVIDE SAFE AND SUPPORTIVE ENVIRONMENT,PROVIDE MEDICATION ORDERED AND Q 15 MIN. MONITORING. OBSERVE BEHAVIORS. R- PT. ORIENTED TO MONTH AND NAME AND TOWN NOT YEAR.TOOK MEDICATION ORDERED. ATTENDED GROUP,ATE SNACKS AND PARTICIPATED IN GROUP ACTIVITY. PLEASANT AFFECT. RATED DEPRESSION 7 AND ANXIETY 6. INITIATED INTERACTION. PT. REMAINS FALL RISK AMD IS WEARING YELLOW NON SKID SOCKS. RESTING IN BED WITH EYES CLOSED AT THIS TIME. P- WILL CONTINUE TO PROVIDE SAFE AND SUPPORTIVE ENVIRONMENT,PROVIDE MEDICATION ORDERED. OBSERVE BEHAVIORS.
[2020-11-07] MEDS: HUMULIN R SQ SCH ×4 (07:30→21:01)
[2020-11-07] MEDS: ANTIVERT PO SCH (08:17)
[2020-11-07] MEDS: GLUCOTROL PO SCH (08:19)
[2020-11-07] MEDS: FERROUS SULFATE PO SCH (08:19)
[2020-11-07] MEDS: ATARAX PO SCH ×2 (08:19→20:54)
[2020-11-07] MEDS: LASIX PO SCH (08:19)
[2020-11-07] MEDS: LIPITOR PO SCH (08:20)
[2020-11-07] MEDS: RISPERDAL PO SCH ×3 (08:20→20:54)
[2020-11-07] MEDS: PEPCID PO SCH ×2 (08:20→20:54)
[2020-11-07] MEDS: TOPROL XL PO SCH (08:22)
[2020-11-07] MEDS: ALTACE PO SCH (08:22)
[2020-11-07 08:37] VITALS: BP 119/63
[2020-11-07] MEDS: BACTROBAN OINTMENT TP SCH (09:00)
[2020-11-07] MEDS: KENALOG 0.1% TP SCH (09:55)
--- NOTE | 2020-11-07 11:06 | PRM.PN ---
Mood: these stinking worms, not going to give up Sleep: slept good, 8 hours Appetite: yes its always good Suidical thoughts: denies hopeless, does not want to Homicidal thoughts: DENIES Recent stressors: just saw doctor, felt it was better Family support: does not have but distant cousins Aggressive Behavior: not present Ability to Perform ADL'sc: assist of staff with routine, he will ask about time Psychotic sympstoms: worms at night? did not notice this morning Manic Symptoms: appearing some less today Living situation: was at home by himself Anxity Symptoms: about worms, Anger/Irritablility: just frustrated, Muscle Strength & Tone: WNL Gait & Station: Normal stance/post/gait (except some kyphosis) Appearance: Well groomed/hygience Attitude & Behaviour: Cooperative/Pleasant Mood & Affect: Full Orientation: Disoriented to time, Disoriented to situation Attention/Concentration: Fair attention, Fair concentration Speech: Reg rate/vol/rhyth/prosod Judgement/Insight: Fair judgement, Fair insight Thought Process: Circumferential Language: Burmese Thought content/Abnormal/Psych: A/V Wolfe (tactile, 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), Delusions Fund of Knowledge: WNL Associations: Other Constitutional: None Neurological: Dizziness (everyday, ) Psychiatric: Psychosis Pioneer I: delusional disorder Assessment/Plan Assessment/Plan Plan Nursing - yesterday saying sexual comment, not present today can be irritable, make short statements but able to calm on his own can be ruminative, ask repetitive questions Patient: lifts his ankle leg up for me to see numerous open/healing areas,something is chewing on the ankle admits he starts to ruminate about the worms and forgets to do things like eating, social plan: discharge to snf is likely, he does not stay oriented- Vital Signs Date Time Temp Pulse Resp B/P (MAP) Pulse Ox O2 Delivery O2 Flow Rate FiO2 11/07/20 08:37 97.4 71 20 119/63 (81) 98 Room Air Current Medications Medications (Trade) Dose Ordered Sig/Reva PRN Reason Start Time Stop Time Status Last Admin Gabapentin (Neurontin) 100 mg BID 11/07/20 11:30 12/07/20 11:29 Hydroxyzine HCl (Atarax) 25 mg BID 11/04/20 21:00 12/02/20 10:29 11/07/20 08:19 Melatonin (Melatonin) 3 mg HS 11/05/20 21:00 12/05/20 20:59 11/06/20 20:38 Summary: Suspect with kidney insufficiency, diabetes and age that he is have some nerve pain, he does reports dizziness that is prior to admission will start nerve pain medication at lowest dose and see if PT can evaluate and assist with his gait, training. He also have issues of becoming quite ruminative, not easily redirected at moments, can be snappy and gabapentin likely to assist in these sx. Today he showed some insight into his ruminations, this is improvement. CONSENT: Consent was obtained by patient for telemedicine visit. Consent was obtained for the presence of staff member throughout encounter. Privacy was maintained throughout encounter PLAN: 1. CONTINUE BEHAVIORAL HEALTH MANAGEMENT. 2. Start gabapentin 100mg po bid, ruminative thinking, nerve pain, 3. ALL PATIENT QUESTIONS ANSWERED RELATED TO MEDICATIONS, PLAN OF CARE, AND EXPECTED OUTCOMES. 4. SAFETY PLAN DISCUSSED. 5. PT eval and treat, unstable gait, fall risk, has some dizziness (long standing) has leg wound, TOM Weiss ENGAGEMENT EXECUTIVE Nov 07, 2020 11:06
--- NOTE | 2020-11-07 11:21 | NUR ---
TELEMED PT WAS SEEN BY Filipe DIAZ NP. RECEIVED ORDERS TO START GABAPENTIN BID, SEE EMR.
[2020-11-07] MEDS: NEURONTIN PO SCH ×2 (16:21→20:54)
[2020-11-07 19:10] VITALS: BP 100/54
--- NOTE | 2020-11-07 19:16 | NUR ---
PIRP P: ALTERED THOUGHT PROCESS, FALL RISK I: Q15 MIN MONITORING, ASSESS FOR PSYCHOTIC SYMPTOMS, GIVE CLEAR AND SIMPLE INSTRUCTIONS, REDIRECT WITH VERBALIZATION, PROVIDE TASK-ORIENTED ACTIVITIES, PROVIDE 1:1 TO ENCOURAGE EXPRESSION OF FEELINGS, REINFORCE FALL PREVENTION TECHNIQUES AND APPROPRIATE USE OF ADAPTIVE EQUIPMENT, PROVIDE SAFE AND SUPPORTIVE ENVIRONMENT, GIVE MEDICATIONS ORDERED R: PT HAS FLAT, WITHDRAWN AFFECT MAJORITY OF SHIFT. HAS NOT EXHIBITED THREATENING OR COMBATIVE BEHAVIORS AND HAS NOT BEEN EXIT-SEEKING. DENIES FEELINGS OF DEPRESSION/ANXIETY AND SUICIDAL/HOMICIDAL IDEATION. PT CONT TO MAKE DELUSIONAL STATEMENTS R/T SCHUYLER CAIN, STATES, "I WANT THIS THING COVERED SO I CAN CATCH THE WORMS WHEN THEY COME OUT." PT HAS TAKEN MEDICATIONS ORDERED, HAS ATTEMPTED TO PARTICIPATE IN GROUP ACTIVITIES, AND IS COOPERATIVE WITH ADLS. PT REQUIRES REINFORCEMENT OF FALL PREVENTION TECHNIQUES D/T ATTEMPTS TO AMBULATE WITHOUT ASSIST/ASSISTIVE DEVICES. P: REINFORCE FALL PREVENTION EDUCATION, USE CALM REASSURING APPROACH
[2020-11-07] MEDS: MELATONIN PO SCH (20:54)
[2020-11-08] MEDS: HUMULIN R SQ SCH ×4 (07:30→21:00)
[2020-11-08 08:10] VITALS: BP 170/80
[2020-11-08] MEDS: ALTACE PO SCH (08:18)
[2020-11-08] MEDS: PEPCID PO SCH ×2 (08:18→21:36)
[2020-11-08] MEDS: ANTIVERT PO SCH (08:18)
[2020-11-08] MEDS: TOPROL XL PO SCH (08:18)
[2020-11-08] MEDS: NEURONTIN PO SCH ×2 (08:19→21:36)
[2020-11-08] MEDS: LASIX PO SCH (08:19)
[2020-11-08] MEDS: LIPITOR PO SCH (08:19)
[2020-11-08] MEDS: GLUCOTROL PO SCH (08:19)
[2020-11-08] MEDS: RISPERDAL PO SCH ×3 (08:19→21:36)
[2020-11-08] MEDS: ATARAX PO SCH (08:19)
[2020-11-08] MEDS: FERROUS SULFATE PO SCH (08:19)
[2020-11-08] MEDS: KENALOG 0.1% TP SCH (08:20)
[2020-11-08] MEDS: BACTROBAN OINTMENT TP SCH (08:20)
--- NOTE | 2020-11-08 14:02 | PRM.PN ---
Mood: oscar ribera, Sleep: good, 8.75 hours through the night Appetite: fantastic, all I do is eat, Suidical thoughts: denies Homicidal thoughts: denies Recent stressors: I am happy Family support: every woman I know if my GF, Aggressive Behavior: denies Ability to Perform ADL'sc: assist with schedule Psychotic sympstoms: got rid of my bugs, Manic Symptoms: says you can't get too happy Living situation: was at home, plan to discharge to snf Family,PT,Surgical,&Current HX: (1) Delusional disorder Anxity Symptoms: so happy worms gone Anger/Irritablility: denies Muscle Strength & Tone: WNL Gait & Station: Normal stance/post/gait Appearance: Well groomed/hygience Attitude & Behaviour: Cooperative/Pleasant Mood & Affect: Full Orientation: Disoriented to place, Disoriented to situation (today saying sotero at [place], gives him his meds) Attention/Concentration: Fair attention, Fair concentration Speech: Reg rate/vol/rhyth/prosod Judgement/Insight: Poor judgement, Poor insight Thought Process: Circumferential Language: Irish Thought content/Abnormal/Psych: Delusions (believing he is near [facility] [place]) Fund of Knowledge: WNL Associations: WNL/Normal Associations Constitutional: None Neurological: Dizziness Psychiatric: Psychosis Olivia I: delusional disorder Assessment/Plan Assessment/Plan Plan Nursing - he has done art pages, card game, orientation- he is aware of [place], hospital, fixed delusion that [place] and major has something to do with him being her rather intrusive today; giving others advice, taking over conversation wound care today; feels we are beating the worms, denies falling since gabapentin, baseline of dizziness, prior to hospitalization Patient: tells me all the women here are his girlfriends says he is just so happy that the worms are gone, he wants to celebrate this does not make sexual comments of the women, listens to me discussing boundaries, social plan: discharge to snf is likely, he does not stay oriented- Vital Signs Date Time Temp Pulse Resp B/P (MAP) Pulse Ox O2 Delivery O2 Flow Rate FiO2 11/07/20 08:37 97.4 71 20 119/63 (81) 98 Room Air Current Medications Medications (Trade) Dose Ordered Sig/Reva PRN Reason Start Time Stop Time Status Last Admin Gabapentin (Neurontin) 100 mg BID 11/07/20 11:30 12/07/20 11:29 Hydroxyzine HCl (Atarax) 25 mg BID 11/04/20 21:00 12/02/20 10:29 11/07/20 08:19 Melatonin (Melatonin) 3 mg HS 11/05/20 21:00 12/05/20 20:59 11/06/20 20:38 Summary: Today appearing euphoric; but secondary to not having worms eating his ankle bone sensation, (tells me to remember this day, 11/08/2020 as the day we won the worms) he is quite euphoric today, has been intrusive and hypertalkative- PT eval and treat- likely to not start until Tuesday, ordered Tuesday afternoon. CONSENT: Consent was obtained by patient for telemedicine visit. Consent was obtained for the presence of staff member throughout encounter. Privacy was maintained throughout encounter PLAN: 1. CONTINUE BEHAVIORAL HEALTH MANAGEMENT. 2. CONTINUE CURRENT MEDICATIONS- except changing hydroxizine to prn- as before, 3. ALL PATIENT QUESTIONS ANSWERED RELATED TO MEDICATIONS, PLAN OF CARE, AND EXPECTED OUTCOMES. 4. SAFETY PLAN DISCUSSED. 5. euphoria today, likely temporary effect from gabapentin but it has taken away nerve pain/worms eating at bones. TOM DIAZ NP Nov 08, 2020 14:02
[2020-11-08] MEDS ORDERED: ATARAX PO PRN (14:30)
--- NOTE | 2020-11-08 15:48 | NUR ---
Telemedicine Patient seen by psychiatric professional Sheng Gunderson NP via Telemedicine. Hydroxyzine changed from Scheduled to PRN.
--- NOTE | 2020-11-08 18:09 | NUR ---
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
[2020-11-08 20:00] VITALS: BP 110/80
[2020-11-08] MEDS: MELATONIN PO SCH (21:00)
--- NOTE | 2020-11-09 03:36 | NUR ---
PIRP P- ALTERED THOUGHT PROCESS I- PROVIDE SAFE AND SUPPORTIVE ,PROVIDE MEDICATION ORDERED,Q 15 MIN. MONITORING AND OBSERVE BEHAVIORS. R- PT. DENIED DEPRESSION AND ANXIETY. ORIENTED TO NAME AND MONTH.ATTENDED GROUP,ATE SNACKS AND PARTICIPATED IN GROUP ACTIVITIES. HYPERVERBAL AND INTRUSIVE AND INTERRUPTING OTHERS WHEN THEY WERE TALKING OR WHEN PEERS WERE STARTING TO ANSWER QUESTIONS. TOOK MEDICATION ORDERED. WHILE IN GROUP DISCUSSION ABOUT LOSS IN LIFE, PT. STATED THAT THE DEVIL HAD TAKEN MANY PEOPLE FROM HIM AND GOD WOULD COME TO HIM AND SHOW HIM THAT THEY HAD GONE TO HELL. PT. RESTING IN BED WITH EYES CLOSED AT THIS TIME. P- WILL CONTINUE TO PROVIDE 1:1 ALLOWING PT. TO EXPRESS THOUGHTS AND FEELINGS. OBSERVE BEHAVIORS AND PROVIDE MEDICATION ORDERED.
[2020-11-09] MEDS: HUMULIN R SQ SCH ×3 (07:30→17:04)
--- NOTE | 2020-11-09 08:19 | NUR ---
Hospitalist RN related concern to Dr. Mitchell for patient's weakness/lethargy in history of low H&H. On 11/03/2020 Hb 8.6, Hct 22. Order received for CBC to be drawn this morning. Addendum: 11/09/20 at 1019 by VETO SheriffM/Spenser LAWS 1018: Dr. Mitchell notified of Hb 7.6, HCT 23.1
[2020-11-09 08:41] VITALS: BP 108/60
[2020-11-09 08:55] LABS: BASOPHIL # 0.4 10^3/uL (0.0-0.1); BASOPHIL % 11.5 % (0.0-0.2); EOSINOPHIL # 0.1 10^3/uL (0.0-0.2); EOSINOPHIL % 2.5 % (0.0-5.0); LYMPHOCYTES # 1.52 10^3/uL1 (1.0-4.8); LYMPHOCYTES % 41.5 % (24.0-44.0); MEAN CORP HGB 32.5 pg (26-34); MONOCYTES # 0.2 10^3/uL (0.3-0.8); MONOCYTES % 5.5 % (5.0-12.0); NEUTROPHIL # 1.4 10^3/uL (1.8-7.7); NEUTROPHILS % 38.7 % (41.0-85.0); PLATELET COUNT 166 10^3/uL (150-400); RED CELL DISTRIBUTION WIDTH 16.6 % (11.5-14.5)
[2020-11-09] MEDS: BACTROBAN OINTMENT TP SCH (08:59)
[2020-11-09] MEDS ORDERED: NS 1000ML 1,000 ML IV ONE (09:00)
[2020-11-09] MEDS: GLUCOTROL PO SCH (09:02)
[2020-11-09] MEDS: LIPITOR PO SCH (09:02)
[2020-11-09] MEDS: NEURONTIN PO SCH (09:02)
[2020-11-09] MEDS: RISPERDAL PO SCH ×2 (09:03→16:31)
[2020-11-09] MEDS: KENALOG 0.1% TP SCH (09:03)
[2020-11-09] MEDS: TOPROL XL PO SCH (09:03)
[2020-11-09] MEDS: ANTIVERT PO SCH (09:03)
[2020-11-09] MEDS: PEPCID PO SCH (09:03)
[2020-11-09] MEDS: FERROUS SULFATE PO SCH (09:03)
[2020-11-09 09:13] LABS: EOSINOPHIL 4 % (1-4); LYMPHOCYTE 57 % (25-36); MONOCYTE 3 % (3-9); SEGMENTED NEUTROPHILS 36 % (31-76)
[2020-11-09 09:14] LABS: OVALOCYTES 3+ (NEGATIVE)
--- NOTE | 2020-11-09 10:19 | NUR ---
hospitalist 0840: Patient orthostatic blood pressure taken secondary to dizziness and weakness. BP taken on left arm 95/44 sitting; standing 73/42. Dr. Mitchell notified of the same. Order received to initiate an NS bolus. 22g peripheral IV, left wrist started by this RN. Bolus started at 1000 at 1000cc/hr. director sterile processing sitting at patient's bedside to monitor IV. Addendum: 11/09/20 at 1027 by Lilibeth Payan RN -M/S RN Lasix and Ramipril DC'd by provider, patient did not receive.
[2020-11-09 11:00] VITALS: BP_SYST 102; BP_SYST 112; BP_DIAS 64; BP_DIAS 68
--- NOTE | 2020-11-09 11:13 | NUR ---
Bolus NS bolus completed at 1100. Orthostatic blood pressure, manual left arm. Lying HOB at 45 degrees, 112/64. sitting EOB 102/68.
[2020-11-09 12:08] LABS: CALCIUM 8.5 mg/dL (8.4-10.5); CARBON DIOXIDE 21.6 mmol/L (20.0-32)
[2020-11-09 14:08] VITALS: BP 90/58
[2020-11-09] MEDS ORDERED: NS 500ML 500 ML IV ONE (14:30)
--- NOTE | 2020-11-09 14:50 | PRM.PN ---
Subjective Subjective Date: Nov 09, 2020 Time: 14:45 Subjective Saw patient today for malaise this am as well as lower than normal BP; vastly improved thorugh the day and s/p NS bolus, at subjective baseline by afternoon VTE VTE Risk Total Score: 3 VTE Risk Score VTE Risk: Score 0-1 = Low Risk (Aggressive mobilization; early ambulation; no VTE prophylaxis required) Score 2: Moderate Risk (Intermittent/Pneumatic Compression Device OR Lovenox/Heparin/Coumadin) Score 3-4: High Risk (Intermittent/Pneumatic Compression Device AND Lovenox/Heparin/Coumadin) Score > or =5: Highest Risk (Intermittent/Pneumatic Compression Device AND Lovenox/Heparin/Coumadin) Antico:Hep/LMWH/Coum/Xarelto: No Mechanical device ordered: Yes Reasons not ordering prophylax: Renal impairment, At risk for falls, Tx not tolerated Review of Systems Allergies: Coded Allergies: No Known Allergies (Unverified , 10/31/20) Scheduled Atorvastatin 40MG (Lipitor 40MG), 1 TAB PO DAILY, (Reported) Famotidine (Famotidine), 1 TAB PO BID, (Reported) Ferrous Sulfate (Ferrous Sulfate), 1 TAB PO DAILY, (Reported) Furosemide (Lasix), 40 MG PO DAILY24 Glipizide (Glipizide), 1 TAB PO DAILY, (Reported) Meclizine Hcl (Meclizine Hcl), 12.5 MG PO DAILY24, (Reported) Metoprolol Succinate (Metoprolol Succinate), 1 TAB PO DAILY Metoprolol Tartrate 50MG (Lopresser 50MG), 50 MG PO DAILY Mupirocin (Mupirocin), 1 APPLIC TP DAILY24, (Reported) Ramipril (Ramipril), 1 CAP PO QD, (Reported) Triamcinolone Acetonide (Triamcinolone Acetonide), 1 APPLIC TP DAILY24, (Reported) Objective Vitals and I/O Vital Sign - Last 24 Hours 11/09/20 11/09/20 11/09/20 11/09/20 08:41 09:03 11:00 14:08 Temp 97.6 Pulse 71 71 72 Resp 18 B/P (MAP) 108/60 (76) 108/60 112/64 (80) 90/58 (69) 102/68 (79) Pulse Ox 96 Intake and Output 11/09/20 06:59 Intake Total 4064 ml Balance 4064 ml General: Alert, Oriented X3, Cooperative, No acute distress HEENT: Atraumatic, PERRLA, EOMI Neck: Supple Lungs: Clear to auscultation, Other (Few bibasilar crackles) Heart: No murmurs, Other (Irregular irregular) Abdomen: Normal bowel sounds, Soft, No tenderness Extremities: No clubbing, No cyanosis Skin: Other (Lower leg chronic skin changes/pigmentation) Neuro: Normal speech, Normal tone, Sensation intact Psych/Mental Status: Other (awareness improved, aware of circumstances) All Results(Lab/Rad) Laboratory Tests Test 10/31/20 21:01 11/01/20 05:21 11/01/20 07:49 11/01/20 11:40 Bedside Glucose 135 168 151 White Blood Count 3.7 10^3/uL Red Blood Count 2.29 10^6/uL Hemoglobin 7.5 g/dL Hematocrit 22.6 % Mean Corpuscular Volume 98.7 fL Mean Corpuscular Hemoglobin 32.8 pg Mean Corpuscular Hemoglobin Concent 33.2 g/dL Red Cell Distribution Width 16.5 % Platelet Count 178 10^3/uL Mean Platelet Volume 11.6 fL Sodium Level 139 mmol/L Potassium Level 4.3 mmol/L Chloride Level 104.0 mmol/L Carbon Dioxide Level 25.8 mmol/L Glucose Level 149 mg/dL Blood Urea Nitrogen 41 mg/dL Creatinine 1.73 mg/dL Calcium Level 8.6 mg/dL Anion Gap 13.5 Estimated GFR () 45.6 Est GFR (CKD-EPI)(Non-Afr Marshallese) 37.7 BUN/Creatinine Ratio 23.0 Current Medications Medications (Trade) Dose Ordered Sig/Reva Route PRN Reason Start Time Stop Time Status Last Admin Dose Admin Atorvastatin Calcium (Lipitor) 40 mg DAILY PO 11/01/20 09:00 12/01/20 08:59 11/01/20 08:56 Famotidine (Pepcid) 20 mg BID PO 10/31/20 21:00 11/30/20 20:59 11/01/20 08:55 Ferrous Sulfate (Ferrous Sulfate) 325 mg DAILY PO 11/01/20 09:00 12/01/20 08:59 11/01/20 08:55 Furosemide (Lasix) 40 mg DAILY24 PO 10/31/20 19:00 10/31/20 19:29 DC Glipizide (Glucotrol) 5 mg DAILY PO 11/01/20 09:00 12/01/20 08:59 11/01/20 08:56 Metoprolol Succinate (Toprol Xl) 50 mg DAILY PO 10/31/20 21:00 11/30/20 20:59 10/31/20 21:22 Mupirocin (Bactroban Ointment) 1 gm DAILY24 TP 10/31/20 19:00 10/31/20 19:29 DC Meclizine HCl (Antivert) 12.5 mg DAILY24 PO 11/01/20 08:30 12/01/20 08:29 11/01/20 08:56 Ramipril (Altace) 10 mg DAILY PO 11/01/20 09:00 12/01/20 08:59 Triamcinolone Acetonide (Kenalog 0.1%) 1 gm DAILY24 TP 11/01/20 08:30 11/01/20 08:35 DC Insulin Human Regular (Humulin R) ACHS SQ 10/31/20 21:00 11/30/20 20:59 Furosemide (Lasix) 40 mg DAILY PO 11/01/20 09:00 11/30/20 18:59 Mupirocin (Bactroban Ointment) 1 gm DAILY TP 11/01/20 09:00 11/30/20 18:59 Triamcinolone Acetonide (Kenalog 0.1%) 1 gm DAILY24 TP 11/01/20 09:00 12/01/20 08:59 Risperidone (Risperdal) 0.5 mg BID PO 11/01/20 12:00 12/01/20 11:59 11/01/20 11:49 Course Sepsis Qualifier/Stage: NO DEFINITE RISK Vitals & review Data Vital Sign - Last 24 Hours 11/09/20 11/09/20 11/09/20 11/09/20 08:41 09:03 11:00 14:08 Temp 97.6 Pulse 71 71 72 Resp 18 B/P (MAP) 108/60 (76) 108/60 112/64 (80) 90/58 (69) 102/68 (79) Pulse Ox 96 Intake and Output 11/09/20 06:59 Intake Total 4064 ml Balance 4064 ml Laboratory Tests Test 11/07/20 16:57 11/07/20 20:17 11/08/20 07:40 11/08/20 11:57 Bedside Glucose 171 243 147 242 Test 11/08/20 16:56 11/08/20 20:41 11/09/20 07:46 11/09/20 08:35 Bedside Glucose 158 162 165 White Blood Count 3.7 10^3/uL Red Blood Count 2.34 10^6/uL Hemoglobin 7.6 g/dL Hematocrit 23.1 % Mean Corpuscular Volume 98.7 fL Mean Corpuscular Hemoglobin 32.5 pg Mean Corpuscular Hemoglobin Concent 32.9 g/dL Red Cell Distribution Width 16.6 % Platelet Count 166 10^3/uL Mean Platelet Volume 11.9 fL Neutrophils (%) (Auto) 38.7 % Lymphocytes (%) (Auto) 41.5 % Monocytes (%) (Auto) 5.5 % Neutrophils # (Auto) 1.4 10^3/uL Lymphocytes # (Auto) 1.52 10^3/uL1 Monocytes # (Auto) 0.2 10^3/uL Absolute Immature Granulocyte (auto 0.01 10^3 u/L Absolute Eosinophils (auto) 0.1 10^3/uL Immature Granulocytes % 0.30 % Eosinophils % 2.5 % Basophils % 11.5 % Basophils # 0.4 10^3/uL Test 11/09/20 09:02 11/09/20 11:40 11/09/20 11:42 Segmented Neutrophils 36 % Lymphocytes 57 % Monocytes 3 % Absolute Eosinophils (Manual) 4 % Platelet Estimate ADEQUATE Platelet Morphology NORMAL Poikilocytosis 3+ Ovalocytes 3+ Sodium Level 137 mmol/L Potassium Level 4.6 mmol/L Chloride Level 104.0 mmol/L Carbon Dioxide Level 21.6 mmol/L Glucose Level 163 mg/dL Blood Urea Nitrogen 65 mg/dL Creatinine 2.60 mg/dL Calcium Level 8.5 mg/dL Anion Gap 16.0 Estimated GFR () 28.5 Est GFR (CKD-EPI)(Non-Afr Marshallese) 23.6 BUN/Creatinine Ratio 25.0 Bedside Glucose 156 Current Medications Medications (Trade) Dose Ordered Sig/Reva PRN Reason Start Time Stop Time Status Last Admin Gabapentin (Neurontin) 100 mg BID 11/07/20 11:30 12/07/20 11:29 11/09/20 09:02 Hydroxyzine HCl (Atarax) 25 mg BID PRN itching or anxiety 11/08/20 14:30 12/02/20 10:29 LEVEL 1 SEPSIS INFECTION CRITE: None/Not assessed LEVEL 2-SIRS (LIST ALL THAT AP: None/Not assessed Cardiovascular Evidence: Not Assessed or None Hematologic Evidence: None/Not assessed Hepatic Evidence: None/Not assessed Metabolic Evidence: None/Not assessed Neurological Evidence: Altered Mental Status Respiratory Evidence: None/Not assessed Renal Evidence: None/Not assessed O2 Sat by Pulse Oximetry: 96 Oxygen Flow Rate: 102.00 Assessment/Plan Assessment/Plan Problems: (1) Atrial fibrillation Status: Chronic Assessment & Plan: concern for orthostatic hypotension, will pull metoprolol XR back to 25mg daily ICD Code: I48.91 - Unspecified atrial fibrillation SNOMED: 81274076 (2) DM2 (diabetes mellitus, type 2) Status: Chronic Assessment & Plan: euglycemic on diabetic diet and SSI ICD Code: E11.9 - Type 2 diabetes mellitus without complications SNOMED: 57901176 (3) Anemia Status: Chronic Assessment & Plan: Hb down to 7.6 on recheck, unclear etiolgoy, c/w iron supplementation; will check H&H s/p bolus, as well as retic and iron studies, no overt sign of GI bleed as stool yesterday was large but with no sign of bleed ICD Code: D64.9 - Anemia, unspecified SNOMED: 285881853 (4) Hypertension Status: Chronic Assessment & Plan: holding home ramipril, reducing dose of metoprolol to 25 daily, stopped lasix ICD Code: I10 - Essential (primary) hypertension SNOMED: 04938406 (5) CKD (chronic kidney disease) Status: Chronic Assessment & Plan: Cr up to 2.6 today, will give 1.5L NS today, check UA, and repeat BMP in am, anticipate this is a combination of TONY-I and overdiuresis, possibly occult bleed ICD Code: N18.9 - Chronic kidney disease, unspecified SNOMED: 484816610 Plan Nursing - he has done art pages, card game, orientation- he is aware of [place], hospital, fixed del[place] and major has something to do with him being her rather intrusive today; giving others advice, taking over conversation wound care today; feels we are beating the worms, denies falling since gabapentin, baseline of dizziness, prior to hospitalization Patient: tells me all the women here are his girlfriends says he is just so happy that the worms are gone, he wants to celebrate this does not make sexual comments of the women, listens to me discussing boundaries, social plan: discharge to snf is likely, he does not stay oriented- Vital Signs Date Time Temp Pulse Resp B/P (MAP) Pulse Ox O2 Delivery O2 Flow Rate FiO2 11/07/20 08:37 97.4 71 20 119/63 (81) 98 Room Air Current Medications Medications (Trade) Dose Ordered Sig/Reva PRN Reason Start Time Stop Time Status Last Admin Gabapentin (Neurontin) 100 mg BID 11/07/20 11:30 12/07/20 11:29 Hydroxyzine HCl (Atarax) 25 mg BID 11/04/20 21:00 12/02/20 10:29 11/07/20 08:19 Melatonin (Melatonin) 3 mg HS 11/05/20 21:00 12/05/20 20:59 11/06/20 20:38 Summary: Today appearing euphoric; but secondary to not having worms eating his ankle bone sensation, (tells me to remember this day, 11/08/2020 as the day we won the worms) he is quite euphoric today, has been intrusive and hypertalkative- PT eval and treat- likely to not start until Tuesday, ordered Tuesday afternoon. CONSENT: Consent was obtained by patient for telemedicine visit. Consent was obtained for the presence of staff member throughout encounter. Privacy was maintained throughout encounter PLAN: 1. CONTINUE BEHAVIORAL HEALTH MANAGEMENT. 2. CONTINUE CURRENT MEDICATIONS- except changing hydroxizine to prn- as before, 3. ALL PATIENT QUESTIONS ANSWERED RELATED TO MEDICATIONS, PLAN OF CARE, AND EXPECTED OUTCOMES. 4. SAFETY PLAN DISCUSSED. 5. euphoria today, likely temporary effect from gabapentin but it has taken away nerve pain/worms eating at bones. AVERY WHITLEY MD Nov 09, 2020 14:50
[2020-11-09 14:54] LABS: MEAN CORP HGB 32.9 pg (26-34); RED CELL DISTRIBUTION WIDTH 16.7 % (11.5-14.5)
[2020-11-09 15:09] LABS: UA COLOR YELLOW
[2020-11-09 15:15] LABS: BILIRUBIN,URINE NEGATIVE (NEGATIVE); UROBILINOGEN,URINE 0.2 E.U./dL (0.2)
--- NOTE | 2020-11-09 15:23 | DIREP ---
PROCEDURE:CHEST 1 VIEW COMPARISON:[facility], CR, XRAY CHEST 2 VWS, 10/28/2020, 12:51 PM. INDICATIONS:looking for PNA FINDINGS: LUNGS/PLEURA:Senescent interstitial prominence. The lung apices are not included in the field of view. No definitive evidence of consolidation or sizable pleural effusion VASCULATURE:Normal. Unremarkable pulmonary vasculature. CARDIAC:Normal. No cardiac silhouette abnormality or cardiomegaly. MEDIASTINUM:Normal. No visible mass or adenopathy. BONES:Normal. No fracture or visible bony lesion. OTHER:Negative. CONCLUSION:No active cardiopulmonary disease process identified within limitations of the exam Dictated by: Shae Duke M.D. on 11/09/2020 at 03:21 PM
[2020-11-09] MEDS ORDERED: METO50TA6 PO (16:25)
[2020-11-09] MEDS ORDERED: MELA3TAB31 PO (16:39)
[2020-11-09] MEDS ORDERED: GABA100C PO (16:39)
[2020-11-09] MEDS ORDERED: HYDR25TA PO (16:39)
[2020-11-09] MEDS ORDERED: RISP1TAB45 PO (16:39)
[2020-11-09 17:22] VITALS: BP 125/76
[2020-11-09 17:24] VITALS: BP 125/76
--- NOTE | 2020-11-09 20:07 | NUR ---
DISCHARGE PATIENT DISCHARGED FROM [facility], TRANSFERRED TO [facility] FOR MEDICAL MANAGEMENT OF ANEMIA AND HYPOTENSION. PATIENT TRANSPORTED TO ROOM 328 IN A TRANSPORT CHAIR. ALL BELONGINGS TRANSFERRED WITH HIM. REPORT PROVIDED TO INDIRA GUERRERO.
[2020-11-10 11:30] VITALS: BP 120/68
--- NOTE | 2020-11-10 12:00 | NUR ---
ON UNIT PT TRANSPORTED BACK TO UNIT AT 1117 VIA W/C PER Francheska LOYA RN AND Jenna TEIXEIRA LVN. AT THIS TIME, PT IN SF POSITION IN BED, RESTING WITH EYES CLOSED, CHEST RISE AND FALL SYMMETRICAL AND NONLABORED.
--- NOTE | 2020-11-10 14:40 | NUR ---
FALL 1410: THIS RN STEPPED OUT OF CONFERENCE ROOM AND WAS TOLD BY Francheska JEAN CNA THAT PATIENT WAS FOUND SITTING ON FLOOR WHEN SHE CAME OUT OF BR. THIS RN WENT TO PT'S ROOM, STILL SITTING ON GROUND. PT RESPONDING APPROPRIATELY. WHEN ASKED WHAT HAPPENED, PT STATED, "I TRIED TO GRAB A HOLD OF THAT MEJIA, IF YOU CAN EVEN CALL IT, DOOR. I GRABBED A HOLD OF IT AND I GUESS I LOST MY BALANCE AND FELL ON MY BUTT." 1413: T 97.6, P 64, RR 20, O2 99% ON RA, BP 126/56 mmHg. DENIES PAIN AT THIS TIME, CHEST RISE AND FALL SYMMETRICAL AND NONLABORED. 1418: PT WAS x4 ASSIST TO STANDING POSITION AND THEN x2 ASSIST TO SIT AT SIDE OF BED. 1420: PHYSICAL/SKIN ASSESSMENT PERFORMED, NO INJURIES NOTED. PT DENIES HAVING HIT HEAD, PUPILS 3MM PERRLA. CONT TO DENY PAIN. 1425: BG OF 202 OBTAINED BY Francheska JEAN CNA. 1429: PT x1 ASSIST TO SF POSITION IN BED, REQUESTING TO "LAY BACK A WHILE." CHEST RISE AND FALL SYMMETRICAL AND NONLABORED. 1432: DR. CELESTIN AND DR. ALEMAN NOTIFIED OF PT FALL AND NO INJURIES NOTED, NO NEW ORDERS RECEIVED. 1437: BED ALARMED PLACED ON PT'S BED. 1440: DR. ALEMAN ON UNIT TO SEE PATIENT, NO NEW ORDERS RECEIVED.
--- NOTE | 2020-11-10 15:08 | PRM.PN ---
Mood: pleasant Sleep: on medical last night for transfusions Appetite: good appetite Suidical thoughts: does not make statements Homicidal thoughts: does not make statements Recent stressors: appearing happy with staff Family support: only distant relatives Aggressive Behavior: not present Ability to Perform ADL'sc: staff assist Psychotic sympstoms: not having vh, reports tactile gone Manic Symptoms: happy, but rests, appear medical Living situation: lives on his own Family,PT,Surgical,&Current HX: (1) Delusional disorder Anxity Symptoms: denies Anger/Irritablility: denies Muscle Strength & Tone: WNL Gait & Station: Normal stance/post/gait (has some dizziness, standby assist, with walking, ) Appearance: Well groomed/hygience Attitude & Behaviour: Cooperative/Pleasant Mood & Affect: Full Orientation: Disoriented to place, Disoriented to time, Disoriented to situation Attention/Concentration: Fair attention, Fair concentration Speech: Reg rate/vol/rhyth/prosod Judgement/Insight: Fair judgement, Fair insight Thought Process: Linear/goal directed Language: Polish Thought content/Abnormal/Psych: Delusions (at times, dioriented, perceptions not always well ) Fund of Knowledge: WNL Associations: WNL/Normal Associations Constitutional: Fatigue Neurological: Dizziness Psychiatric: Psychosis [place] I: delusional disorder Assessment/Plan Assessment/Plan Plan Nursing: He is appearing more tired, sat up with OT, after his fall- he has decided to lay back down had a fall this afternoon medical followed up with him today, patient: "absolutely perfect" I 'm a tough boy, I don't give up easy (appearing aware of recent medical decisions) consents- he does want medications, make sure worms stay away, Vital Signs Date Time Temp Pulse Resp B/P (MAP) Pulse Ox O2 Delivery O2 Flow Rate FiO2 11/10/20 11:30 98.1 76 18 120/68 (85) 95 Room Air Laboratory Tests 11/09/20 16:58: Bedside Glucose 245H 11/10/20 06:08: Bedside Glucose 147H 11/10/20 14:38: Bedside Glucose 202H Current Medications Medications (Trade) Dose Ordered Sig/Reva PRN Reason Start Time Stop Time Status Last Admin Hydroxyzine HCl (Atarax) 25 mg BID PRN itching or anxiety 11/08/20 14:30 12/02/20 10:29 Hold Summary: Bun/creat remain elevated, restarting lower doses, medications have been on hold. CONSENT: Consent was obtained by patient for telemedicine visit. Consent was obtained for the presence of staff member throughout encounter. Privacy was maintained throughout encounter PLAN: 1. CONTINUE BEHAVIORAL HEALTH MANAGEMENT. 2. RESTART RISPERIDONE AT 0.5MG BID, DUE TO ELEVATED BUN/CREAT 3. ALL PATIENT QUESTIONS ANSWERED RELATED TO MEDICATIONS, PLAN OF CARE, AND EXPECTED OUTCOMES. 4. SAFETY PLAN DISCUSSED 5. RESTART GABAPENTIN AT 100MG PO BID, IT DISSIPATED THE WORM FEELING/GNAWING AT HIS BONE 6. STOP PRNS PSYCHOTROPICS AND STOP MELATONIN TOM DIAZ CASINO FLOOR WALKER Nov 10, 2020 15:08
--- NOTE | 2020-11-10 15:20 | NUR ---
TELEMED PT WAS SEEN BY Filipe DIAZ NP. RECEIVED ORDERS TO RESUME RISPERDAL AND GABAPENTIN, SEE EMR.
[2020-11-10] MEDS: NEURONTIN PO SCH ×2 (15:30→17:33)
--- NOTE | 2020-11-10 15:50 | NUR ---
DR. LOVE ALEMAN NOTIFIED OF NEED FOR MEDICATION RECONCILIATION, RECEIVED ORDERS TO CONT PREVIOUS MEDICATION, SEE EMR.
[2020-11-10 17:47] VITALS: BP_SYST 120; BP_SYST 126; BP_DIAS 56; BP_DIAS 68
--- NOTE | 2020-11-10 18:07 | NUR ---
PIRP P: ALTERED THOUGHT PROCESS, FALL RISK I: Q15 MIN MONITORING, ASSESS FOR PSYCHOTIC SYMPTOMS, GIVE CLEAR AND SIMPLE INSTRUCTIONS, REDIRECT WITH VERBALIZATION, PROVIDE TASK-ORIENTED ACTIVITIES, REINFORCE FALL PREVENTION TECHNIQUES AND APPROPRIATE USE OF ADAPTIVE EQUIPMENT, PROVIDE SAFE AND SUPPORTIVE ENVIRONMENT, GIVE MEDICATIONS ORDERED R: PT HAS PLEASANT, COOPERATIVE AFFECT. HAS NOT EXHIBITED THREATENING OR COMBATIVE BEHAVIORS AND IS NOT EXIT-SEEKING. DENIES FEELINGS OF DEPRESSION/ANXIETY, DENIES SI/HI. DOES NOT APPEAR TO BE RESPONDING TO INTERNAL STIMULI, AND HAS NOT VOICED HAVING WORMS IN HIS LLE. PT IS COOPERATIVE WITH ADLS, TAKES MEDICATIONS ORDERED, AND PARTICIPATES IN SOME GROUP ACTIVITIES. PT AMBULATED WITHOUT ASSISTANCE TO BATHROOM AND SUBSEQUENTLY EXPERIENCED UNWITNESSED FALL. PT CONT TO DENY PAIN, NO INJURIES NOTED. BED ALARM IN PLACE, ROOM VISIBLE FROM NURSES' STATION, NON-SLIP FOOTWEAR AND TOILETING SCHEDULE IN PLACE. P: REINFORCE FALL PREVENTION TECHNIQUES, MONITOR FOR CHANGES IN USUAL BEHAVIOR, USE CALM REASSURING APPROACH
--- NOTE | 2020-11-10 18:12 | NUR ---
IV SITES IV SITES TIMES TWO DC'D. CATH INTACT. PT DOZED DURING REMOVAL.
--- NOTE | 2020-11-10 19:15 | NUR ---
SISTER PATIENTS SISTER TANGELA HERE TO VISIT PATIENT. DISCUSSED SHE HAS PUT IN APPLICATIONS IN [facility] AT [facility] BUT NONE OPEN AT THIS TIME, PATIENT IS ON A WAITING LIST. SISTER TANGELA DISCUSSED SHE WOULD CONSIDER TAKING PATIENT TO HER HOUSE UNTIL APARTMENT WAS AVAILABLE IF NO OTHER OPTIONS AVAILABLE SO PATIENT DID NOT HAVE TO RETURN TO [facility] APARTMENTS WHERE [facility] IS AT. Addendum: 11/11/20 at 0407 by MILA Rios RN ENTERED IN ERROR, WRONG PATIENT
[2020-11-10 20:32] VITALS: BP 118/72
[2020-11-10] MEDS: RISPERDAL PO SCH (20:41)
--- NOTE | 2020-11-11 03:47 | NUR ---
P.I.R.I. P. POTENTIAL FOR FALLS/ALTERATION IN THOUGHT PROCESS. I. PROVIDE EVERY 15 MINUTE CHECKS, PROVIDE SAFE ENVIRONMENT, PROVIDE MEDICATIONS ORDERED. PROVIDE TASK ORIENTED GROUP ACTIVITY AND ENCOURAGE PARTICIPATION. PROVIDE 1:1 INTERACTION TO ALLOW PATIENT TO EXPRESS FEELINGS. R. PATIENT TOOK ORDERED MEDS, VOICES HE WAS TIRED, DISCUSSED LONG-TERM VERSUS HOME ALONE ON DISCHARGE DUE TO MEDICALLY NEEDING MONITORING FOR ABNORMAL LABS AND WEAKNESS, HIGH RISK FOR FALLS, INTERVENTIONS NEEDED FOR ABNORMAL LABS AND UNSAFE FOR PATIENT TO BE ALONE AT HOME AT THIS TIME. 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 VOICES HE THINKS THE WORMS ARE GONE IN HIS LEG. OBSERVED WOUND TO LEFT LOWER LEG THIS SHIFT AND IMPROVEMENT NOTED. AREA IS RESOLVING. PATIENT VOICES THIS IS THE BEST LEG HAS BEEN IN 4 YEARS. P. CONTINUE CURRENT PLAN OF CARE. Addendum: 11/11/20 at 0414 by Amalia Barr RN-JERRYU RN PATIENT UTILIZES RED SOCKS DUE TO FALL AND BED ALARM UTILIZED AND EDUCATED PATIENT NOT TO GET UP BY HIMSELF BOTH FOR SAFETY. PATIENT HAS ATTEMPTED TO GET UP UNASSISTED EVEN WITH EDUCATION.
[2020-11-11 08:37] VITALS: BP 102/40
[2020-11-11] MEDS ORDERED: FERROUS SULFATE PO ONE (09:48)
[2020-11-11] MEDS: LIPITOR PO SCH (09:49)
[2020-11-11] MEDS ORDERED: LIPITOR ONE (09:49)
[2020-11-11] MEDS: FERROUS SULFATE PO SCH (09:49)
[2020-11-11] MEDS: NEURONTIN PO SCH ×2 (09:49→21:01)
[2020-11-11] MEDS: RISPERDAL PO SCH ×2 (09:50→21:01)
[2020-11-11] MEDS: LOPRESSER PO SCH (09:59)
--- NOTE | 2020-11-11 12:37 | PRM.PN ---
Mood: just fine, Sleep: absolutely perfect, 7.25 hours Appetite: I'm fine Suidical thoughts: denies (I'm to smart for that) Homicidal thoughts: don't hate nobody Recent stressors: was weak better Family support: distant family Aggressive Behavior: not present Ability to Perform ADL'sc: staff with standby Psychotic sympstoms: worms are dying, so far things are perfect Manic Symptoms: talks of money, says leased some land Living situation: was living in own place Family,PT,Surgical,&Current HX: (1) Delusional disorder Anxity Symptoms: denies Anger/Irritablility: denies Muscle Strength & Tone: WNL Gait & Station: Normal stance/post/gait Appearance: Well groomed/hygience Attitude & Behaviour: Cooperative/Pleasant Mood & Affect: Full Orientation: Disoriented to place, Disoriented to time, Disoriented to situ ation Attention/Concentration: Fair attention, Fair concentration Speech: Reg rate/vol/rhyth/prosod Judgement/Insight: Fair judgement, Poor insight Thought Process: Circumferential Language: Kinyarwanda Thought content/Abnormal/Psych: Delusions Fund of Knowledge: WNL Associations: WNL/Normal Associations Constitutional: Fatigue Neurological: Weakness, Dizziness Psychiatric: Psychosis [place] I: DELUSIONAL DISORDER Assessment/Plan Assessment/Plan Plan Nursing: Mostly resting, but easily aroused up for meals, today in w/c versus walking in, hospital gown versus his clothes Patient: [place] [employer], ok to being at the hospital says I was weak and kept following down asks nurse; don't you think I am doing better, 1920, corrects- 2020 president- it's old [place] he was on tv the other day, she looks nice admits environmental services associate with dark hair was attractive, Laboratory Tests 11/10/20 14:38: Bedside Glucose 202H 11/11/20 08:46: Bedside Glucose 151H Vital Signs Date Time Temp Pulse Resp B/P (MAP) Pulse Ox O2 Delivery O2 Flow Rate FiO2 11/11/20 09:59 72 102/40 11/11/20 08:37 97.9 18 93 Room Air Summary: nursing is going to recheck bp, manual cuff, says sore is a bit hurting but not the bugs, is not oriented, still [place] [employer] [place], some insight today, suspect kidney function and low rbc/hemoglobin led to hallucinations, CONSENT: Consent was obtained by patient for telemedicine visit. Consent was obtained for the presence of staff member throughout encounter. Privacy was maintained throughout encounter PLAN: 1. CONTINUE BEHAVIORAL HEALTH MANAGEMENT. FUTURE PLAN FOR DISCHARGE TO REHAB/SNF, HE IS NOT STAYING ORIENTED, CONTINUED TO HAVE HALLUCINATIONS BUT TACTIAL DISSIPATED - APPEARS IT WAS NERVE PAIN, GABAPENTIN RELIEVES 2. CONTINUE CURRENT MEDICATIONS 3. ALL PATIENT QUESTIONS ANSWERED RELATED TO MEDICATIONS, PLAN OF CARE, AND EXPECTED OUTCOMES. 4. SAFETY PLAN DISCUSSED 5. WOULD GREATLY APPRECIATE MEDICAL REVIEWING BP/AND IF LABS SHOULD BE ORDERED, prefer manual bp's, TOM DIAZ NP Nov 11, 2020 12:37
[2020-11-11 14:03] VITALS: BP 110/62
--- NOTE | 2020-11-11 16:34 | DIET.OP ---
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 Current Diet Order/Nutrition S: 1800 2gm Na Pertinent Meds Current Medications Medications (Trade) Dose Ordered Sig/Reva PRN Reason Start Time Stop Time Status Last Admin Gabapentin (Neurontin) 100 mg BID 11/10/20 15:30 12/10/20 15:29 11/11/20 09:49 Metoprolol Tartrate (Lopresser) 25 mg DAILY 11/11/20 09:00 12/11/20 08:59 11/11/20 09:59 Risperidone (Risperdal) 0.5 mg BID 11/10/20 21:00 12/03/20 13:29 11/11/20 09:50 Pertinent Labs blood glucose has been 147-245 mg/dl 11/07-11/11. Creatinine is 2.6H and BUN is 65H. Height (Feet): 5 Height (Inches): 10 Current Weight: 250 %IBW: 151 Recent Weight Change: No (no updated wt to assess) Weight Status: Obese Food Allergies: No Cultural/Ethnic/Gnosticist Peyton: none known Skin Integrity/Comment: Yes (wound to L foot, chronic) Current %PO: Good(75-100%) Calories/Kcals/K-25 kcal/kg IBW Kcals Calculated: for wt loss Protein g/k-1.2 g/kg of IBW Protein Calculated: 89-107g Fluid: ml: [id number] or 1 ml/kcal Nutritional Problem: Nutr. Problems Present Problems: altered nutrition related labs: blood glucose Etiology: T2DM, not following consistent carb diet Signs/Symptoms: BG 147-245 mg/dl the last [address] Comments: 1. Continue current diet. Recommend snacks consistent with DM diet. 2. Tight blood glucose control to promote wound healing - Continue to monitor BG and correct as indicated. 3. Pt not appropriate for diet education at this time due to disorientation to place and situation, RD to monitor Expected Outcomes BG 100-150 mg/dl the next 5 days. - not met, continue Diet education provided by RD as appropriate - not appropriate at this time. Discharge on cardiac/consistent carb diet Malnutrtion/Nutrition Risk Edu: No MD Notificiation Needed?: No Anayeli Bullock Nov 11, 2020 16:34
--- NOTE | 2020-11-11 17:01 | NUR ---
DR. ALEMAN NOTIFIED OF URINE CULTURE RESULTS. RECEIVED ORDERS TO START KEFLEX FOR 7 DAYS, SEE EMR.
--- NOTE | 2020-11-11 17:38 | NUR ---
PIRP P: ALTERED THOUGHT PROCESS, FALL RISK I: Q15 MIN MONITORING, ASSESS FOR PSYCHOTIC SYMPTOMS, GIVE CLEAR AND SIMPLE INSTRUCTIONS, USE BED ALARM, REDIRECT WITH VERBALIZATION, PROVIDE TASK-ORIENTED ACTIVITIES, ALTERNATE REST/ACTIVITY, REINFORCE FALL PREVENTION TECHNIQUES AND APPROPRIATE USE OF ADAPTIVE EQUIPMENT, GIVE MEDICATIONS ORDERED, MONITOR FOR CHANGES IN USUAL BEHAVIOR R: PT HAS BRIGHT, PLEASANT AFFECT THROUGHOUT SHIFT. DENIES FEELINGS OF DEPRESSION/ANXIETY, SI/HI. NO HALLUCINATIONS OR DELUSIONS NOTED. PT STATED, "THOSE WORMS ARE GONE NOW." PT DOES NOT APPEAR TO RESPOND TO INTERNAL STIMULI, ABLE TO FOLLOW DIRECTIONS APPROPRIATELY. TAKES MEDICATIONS ORDERED, PARTICIPATES IN SOME GROUP ACTIVITIES WITH PROMPTING, AND IS COOPERATIVE WITH ADLS. P: REINFORCE FALL PREVENTION TECHNIQUES, ENCOURAGE PARTICIPATION IN ADLS
[2020-11-11 19:48] VITALS: BP 112/78
[2020-11-11] MEDS: KEFLEX PO SCH (21:02)
--- NOTE | 2020-11-12 03:01 | NUR ---
PIRP-P- ALTERED THOUGHT PROCESS AND FALL RISK I- PROVIDE SAFE AND SUPPORTIVE ENVIRONMENT,PROVIDE MEDICATION ORDERED, Q 15 MIN MONITORING. PROVIDE TEACHING ON FALL PRECAUTIONS AND OBSERVE BEHAVIORS. R- ORIENTED TO NAME AND MONTH. DENIES DEPRESSION AND ANXIETY. HE STATES HE HAS HAD TO PUT UP WITH THE WORMS FOR FIVE YEAR AND SURE GLAD THEY ARE GONE NOW. REMAINS FALL RISK AND TEACHING ON FALL PRECAUTIONS WAS DONE. ENCOURAGED PT. TO CALL FOR STAFF BEFORE GETTING UP FROM BED OR CHAIR AND HE STATES HE UNDERSTANDS AND HE WILL DO THAT BUT WHEN HE STARTS GETTING UP HE DOES NOT CALL FOR STAFF ASSIST OR STANDBY ASSIST. TOOK MEDICATION ORDERED. ATTENDED GROUP, ATE SNACKS AND PARTICIPATED IN GROUP ACTIVITY. INITIATED INTERACTION.PT. WEARING YELLOW NON SKID SOCKS THIS SHIFT. SOB NOTED ON EXERTION. PT. RESTING IN BED WITH EYES CLOSED AT THIS TIME. P- WILL CONTINUE TO PROVIDE 1:1 INTERVENTION ALLOWING PT. TO EXPRESS THOUGHTS AND FEELINGS. CONTINUE TO OBSERVE BEHAVIORS, PROVIDE MEDICATION ORDERED AND ASSIST WITH AMBULATION OR TRANSFER WHEN NEEDED.
[2020-11-12 07:35] VITALS: BP 119/54
[2020-11-12] MEDS ORDERED: FERROUS SULFATE PO ONE (08:50)
[2020-11-12] MEDS: LOPRESSER PO SCH (08:51)
[2020-11-12] MEDS ORDERED: LIPITOR ONE (08:51)
[2020-11-12] MEDS: LIPITOR PO SCH (08:52)
[2020-11-12] MEDS: RISPERDAL PO SCH ×2 (08:52→20:49)
[2020-11-12] MEDS: FERROUS SULFATE PO SCH (08:52)
[2020-11-12] MEDS: NEURONTIN PO SCH ×2 (08:52→20:50)
[2020-11-12] MEDS: KEFLEX PO SCH ×2 (08:52→20:49)
--- NOTE | 2020-11-12 17:07 | PRM.PN ---
Mood: good, a bit tired Sleep: 8.75 hours Appetite: good Suidical thoughts: denies Homicidal thoughts: denies Recent stressors: says his home town [facility] did not treat him well Family support: distant relatives Aggressive Behavior: not present Ability to Perform ADL'sc: minimal assist Psychotic sympstoms: reports some worms, orthotic/prosthetic clinician then gone Manic Symptoms: good sense of humor, talkative but can be redirected Living situation: was living on his own Family,PT,Surgical,&Current HX: (1) Delusional disorder Anxity Symptoms: was worried about his mail Anger/Irritablility: denies Muscle Strength & Tone: WNL Gait & Station: Normal stance/post/gait Appearance: Well groomed/hygience Attitude & Behaviour: Cooperative/Pleasant Mood & Affect: Full Orientation: Fully oriented per interv Attention/Concentration: Fair attention, Fair concentration Speech: Reg rate/vol/rhyth/prosod Judgement/Insight: Fair judgement, Fair insight Thought Process: Linear/goal directed Language: Moldovan Thought content/Abnormal/Psych: A/V Wolfe (tactile only x1, ) Fund of Knowledge: WNL Associations: WNL/Normal Associations Constitutional: None Neurological: None Psychiatric: Psychosis [place] I: delusional disorder Assessment/Plan Assessment/Plan Plan Nursing: he was concerned about getting his mail he is tired- slept well he was ok with going to rehab upon discharge, orientation- appearing improved, he participates in groups, today has not made any statements of believing this is army camp (apparently he refer to the armory across the street, [employer]) no talk of the Major, Patient: I feel ok, but my darn leg, hate that I have to doctor it, nurses treat me just as good as they can, like a family member lunch today; asks what did I have- I can't think, does not recall, a round piece of meat, pork chop I guess, (nurse confirms it was pork loin) year- 2020- hospital- [place], me and used to live 6 blocks away, - she first filed for a divorce, willing to give it to her, she went back to [place], she got into drugs/sex, the worst of conditions, she had too much money, she is - her trick fell on her children- a boy- he was 12 and 13, and another 10 or 11, one where I lived, it was summer, my dad found him hole in his , but zero blood, "he lived in the house I live in now" he was just a little off all the time, he treated me like a million dollars, other one was in [place], he went to [place], he just dropped Current Medications Medications (Trade) Dose Ordered Sig/Reva PRN Reason Start Time Stop Time Status Last Admin Cephalexin (Keflex) 500 mg BID 11/11/20 21:00 11/18/20 23:00 11/12/20 08:52 Gabapentin (Neurontin) 100 mg BID 11/10/20 15:30 12/10/20 15:29 11/12/20 08:52 Metoprolol Tartrate (Lopresser) 25 mg DAILY 11/11/20 09:00 12/11/20 08:59 11/12/20 08:51 Risperidone (Risperdal) 0.5 mg BID 11/10/20 21:00 12/03/20 13:29 11/12/20 08:52 Vital Signs Date Time Temp Pulse Resp B/P (MAP) Pulse Ox O2 Delivery O2 Flow Rate FiO2 11/12/20 08:51 67 119/54 11/12/20 07:35 97.9 20 95 Summary: He is oriented today; can give more of his hx today, was able to figure out what he had for lunch today, not having hallucinations, feels much of dementia and delusional appear secondary to medical- low hemoglobin- high bun/creat says he wants choices in rehab discharge- CONSENT: Consent was obtained by patient for telemedicine visit. Consent was obtained for the presence of staff member throughout encounter. Privacy was maintained throughout encounter PLAN: 1. CONTINUE BEHAVIORAL HEALTH MANAGEMENT. DISCHARGE TO REHAB/SNF This Tuesday if can be arranged. 2. CONTINUE CURRENT MEDICATIONS 3. ALL PATIENT QUESTIONS ANSWERED RELATED TO MEDICATIONS, PLAN OF CARE, AND EXPECTED OUTCOMES. 4. SAFETY PLAN DISCUSSED 5. CBC and BMP in the morning, see if there are impr ovements, TOM DIAZ ASSISTANT TEACHER PRIMARY Nov 12, 2020 17:07
--- NOTE | 2020-11-12 18:06 | NUR ---
PIRP P: ALTERED THOUGHT PROCESS; FALL RISK I: Q 15 MINUTE MONITORING; PROVIDE A SAFE AND SUPPORTIVE ENVIRONMENT; ASSIST PATIENT IN DIFFERENTIATING BETWEEN INTERNAL AND EXTERNAL REALITY; PROVIDE MEDICATIONS WITH EXPLANATION OF NEED AND PURPOSE; USE EQUIPMENT NEEDED FOR PATIENT SAFETY; ASSESS FOR PRESENCE OF PSYCHOSIS, DEPRESSION, ANXIETY, SI/HI; PROVIDE ASSIST WITH SHOWERING AND TOILETING NEEDED; ENCOURAGE PARTICIPATION IN GROUP ACTIVITIES; 1:1 ALLOWING FOR EXPRESSION OF THOUGHTS AND FEELINGS R: Q 15 MINUTE MONITORING LOGGED; ALL EXITS SECURED, NON-PATIENT AREAS LOCKED, PATIENT AREAS KEPT FREE OF OBSTRUCTION; NO FALLS TODAY, HAD TO BE REMINDED NOT TO GET UP ON HIS OWN; WEARING RED SLIP PROOF DARIEN SOCKS; TWO STAFF ASSIST IN SHOWER AND A SHAVE TODAY; ATTENDED ALL GROUPS, MUSIC/OT/NURSING; SEEN BY STEFANIE DIAZ VIA TELEMEDICINE WHERE HIS DC PLAN WAS DISCUSSED, PATIENT AGREEABLE TO A SNF BED; DENIES DEPRESSION,ANXIETY, STILL APPEARS CONVINCED HE HAD "WORMS CHEWING " IN THE LEFT LEG WOUND, REMINDED BY STEFANIE WHAT HE FELT WAS MOST LIKELY NEUROPATHY; pATIENT EXPRESSED HIS EXPERIENCE ON UNIT IN A POSITIVE MANNER, STATES,"THEY HAVE ALL BEEN ANGELS!" "ALL I HAVE TO DO IS SNAP MY FINGERS AND THEY TAKE CARE OF ME" P: PLANNING FOR A DC TO SNF BED FOR REHAB, PATIENT WOULD LIKE TO BE CLOSE TO HOME
[2020-11-12 18:50] VITALS: BP 117/70
--- NOTE | 2020-11-13 04:41 | NUR ---
PIRP- P- ALTERED THOUGHT PROCESS AND RISK FOR FALL I- PROVIDE SAFE AND SUPPORTIVE ENVIRONMENT,PROVIDE MEDICATION ORDERED,OBSERVE BEHAVIORS AND Q 15 MIN. MONITORING. MEDICATION EDUCATION. R- PT. DENIED DEPRESSION AND ANXIETY THIS SHIFT. DENIES HALLUCINATIONS AND DELUSIONS TONIGHT. ATTENDED GROUP AND PARTICIPATED IN GROUP ACTIVITIES. INITIATED INTERACTION. CHEERFUL AFFECT. TOOK MEDICATION ORDERED. MEDICATION EDUCATION AND FALL PRECAUTIONS EDUCATION PROVIDED AND PT. VOICED UNDERSTANDING BUT DOES GET UP WITHOUT ASKING FOR STANDBY ASSIST. PT. WEARING RED NON SKID SOCKS THIS SHIFT. PT. RESTING IN BED WITH EYES CLOSED AT THIS TIME. P- WILL CONTINUE TO PROVIDE SAFE AND SUPPORTIVE ENVIRONMENT,OBSERVE BEHAVIORS, ENCOURAGE PT. TO WEAR RED NON SKID SOCKS AND ASK FOR STANDBY ASSIST WHEN TRANSFERRING OR AMBULATING. PROVIDE MEDICATION ORDERED. PROVIDE 1:1 INTERVENTION ALLOWING PT. TO EXPRESS THOUGHTS AND FEELINGS.
[2020-11-13 06:49] LABS: BASOPHIL # 0.5 10^3/uL (0.0-0.1); BASOPHIL % 12.4 % (0.0-0.2); EOSINOPHIL # 0.1 10^3/uL (0.0-0.2); EOSINOPHIL % 2.3 % (0.0-5.0); LYMPHOCYTES % 30.4 % (24.0-44.0); MEAN CORP HGB 32.4 pg (26-34); MONOCYTES # 0.3 10^3/uL (0.3-0.8); MONOCYTES % 6.8 % (5.0-12.0); NEUTROPHIL # 1.9 10^3/uL (1.8-7.7); NEUTROPHILS % 47.8 % (41.0-85.0); PLATELET COUNT 131 10^3/uL (150-400); RED CELL DISTRIBUTION WIDTH 16.5 % (11.5-14.5)
[2020-11-13 06:55] LABS: CALCIUM 8.4 mg/dL (8.4-10.5); CARBON DIOXIDE 24.2 mmol/L (20.0-32)
[2020-11-13 08:06] LABS: BAND NEUTROPHILS 2 % (2-6); EOSINOPHIL 2 % (1-4); LYMPHOCYTE 26 % (25-36); MONOCYTE 6 % (3-9); SEGMENTED NEUTROPHILS 64 % (31-76)
[2020-11-13 08:07] LABS: ANISOCYTOSIS 2+ (NEGATIVE); BURR CELLS 1+ (NEGATIVE); OVALOCYTES 2+ (NEGATIVE); SCHISTOCYTES 1+ (NEGATIVE)
[2020-11-13 08:08] VITALS: BP_SYST 118; BP_SYST 119; BP_DIAS 70; BP_DIAS 80
[2020-11-13] MEDS ORDERED: FERROUS SULFATE PO ONE (09:15)
[2020-11-13] MEDS ORDERED: LIPITOR ONE (09:17)
[2020-11-13] MEDS: RISPERDAL PO SCH ×2 (09:19→20:59)
[2020-11-13] MEDS: KEFLEX PO SCH ×2 (09:20→20:59)
[2020-11-13] MEDS: LOPRESSER PO SCH (09:20)
[2020-11-13] MEDS: FERROUS SULFATE PO SCH (09:20)
[2020-11-13] MEDS: NEURONTIN PO SCH ×2 (09:20→20:59)
[2020-11-13] MEDS: LIPITOR PO SCH (09:20)
--- NOTE | 2020-11-13 10:14 | PRM.PN ---
Mood: Better than better, I'm great Sleep: 4.75 hours Appetite: Good Suidical thoughts: denies Homicidal thoughts: denies Aggressive Behavior: denies Ability to Perform ADL'sc: minimal assist Psychotic sympstoms: less preoccupied about worms in leg Manic Symptoms: very cheerful about feeling better Living situation: had been living on his own Anxity Symptoms: denies Anger/Irritablility: denies Appearance: Well groomed/hygience, Appears age stated Attitude & Behaviour: Cooperative/Pleasant, Good eye contact Mood & Affect: Euthymic/appr/congruent Orientation: Fully oriented per interv Attention/Concentration: Fair attention, Fair concentration Speech: Reg rate/vol/rhyth/prosod Judgement/Insight: Fair judgement, Fair insight Thought Process: Linear/goal directed Language: [place] Thought content/Abnormal/Psych: None/normal Fund of Knowledge: WNL Associations: WNL/Normal Associations Memory (recent and remote): Gross int/not form assess Constitutional: None Neurological: None Psychiatric: None [place] I: Delusional Disorder, somatic type Assessment/Plan Assessment/Plan Assessment/Plan Nursing: He likes that he gets gabapentin and then gets wound care. He participates in groups, he is pleasant/cooperative. Slept 4.75 hours SW working on disposition to SNF Patient: Patient reports that he's "better than better, I'm great". He feels like he is sleeping better, his legs aren't swollen like before, joints don't ache like before, and he feels like his attitude is more positive. He feels like the Risperdal has helped with his worms, he is no longer preoccupied with them, but unconvinced that he didn't have them before because he 'saw' them. Current Medications Medications (Trade) Dose Ordered Sig/Reva PRN Reason Start Time Stop Time Status Last Admin Cephalexin (Keflex) 500 mg BID 11/11/20 21:00 11/18/20 23:00 11/12/20 08:52 Gabapentin (Neurontin) 100 mg BID 11/10/20 15:30 12/10/20 15:29 11/12/20 08:52 Metoprolol Tartrate (Lopresser) 25 mg DAILY 11/11/20 09:00 12/11/20 08:59 11/12/20 08:51 Risperidone (Risperdal) 0.5 mg BID 11/10/20 21:00 12/03/20 13:29 11/12/20 08:52 Vital Signs Date Time Temp Pulse Resp B/P (MAP) Pulse Ox O2 Delivery O2 Flow Rate FiO2 11/12/20 08:51 67 119/54 11/12/20 07:35 97.9 20 95 CONSENT: Consent was obtained by patient for telemedicine visit. Consent was obtained for the presence of staff member throughout encounter. 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 Patient seems to be responding positively to Risperdal, no ADRs; he is not fixated on currently having worms, though still believes he had them because he 'saw' them (given age and medical conditions patient may have been delirious at some point and had visual illusions of worms, but uncertain). Will work on disposition to SNF. Reviewed R/B/SEs of medications. PVU, agrees with plan. PLAN: 1. CONTINUE BEHAVIORAL HEALTH MANAGEMENT. DISCHARGE TO REHAB/SNF - pending arrangements could be Tuesday or Tuesday 2. CONTINUE CURRENT MEDICATIONS 3. ALL PATIENT QUESTIONS ANSWERED RELATED TO MEDICATIONS, PLAN OF CARE, AND EXPECTED OUTCOMES. 4. 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) no talk of the Major, Patient: I feel ok, but my darn leg, hate that I have to doctor it, nurses treat me just as good as they can, like a family member lunch today; asks what did I have- I can't think, does not recall, a round piece of meat, pork chop I guess, (nurse confirms it was pork loin) year- 2020- [facility], me and used to live 6 blocks away, - she first filed for a divorce, willing to give it to her, she went back to [place], she got into drugs/sex, the worst of conditions, she had too much money, she is - her trick fell on her children- a boy- he was 12 and 13, and another 10 or 11, one where I lived, it was summer, my dad found him hole in his , but zero blood, "he lived in the house I live in now" he was just a little off all the time, he treated me like a million dollars, other one was in [place], he went to [place], he just dropped Current Medications Medications (Trade) Dose Ordered Sig/Reva PRN Reason Start Time Stop Time Status Last Admin Cephalexin (Keflex) 500 mg BID 11/11/20 21:00 11/18/20 23:00 11/12/20 08:52 Gabapentin (Neurontin) 100 mg BID 11/10/20 15:30 12/10/20 15:29 11/12/20 08:52 Metoprolol Tartrate (Lopresser) 25 mg DAILY 11/11/20 09:00 12/11/20 08:59 11/12/20 08:51 Risperidone (Risperdal) 0.5 mg BID 11/10/20 21:00 12/03/20 13:29 11/12/20 08:52 Vital Signs Date Time Temp Pulse Resp B/P (MAP) Pulse Ox O2 Delivery O2 Flow Rate FiO2 11/12/20 08:51 67 119/54 11/12/20 07:35 97.9 20 95 Summary: He is oriented today; can give more of his hx today, was able to figure out what he had for lunch today, not having hallucinations, feels much of dementia and delusional appear secondary to medical- low hemoglobin- high bun/creat says he wants choices in rehab discharge- CONSENT: Consent was obtained by patient for telemedicine visit. Consent was obtained for the presence of staff member throughout encounter. Privacy was maintained throughout encounter PLAN: 1. CONTINUE BEHAVIORAL HEALTH MANAGEMENT. DISCHARGE TO REHAB/SNF This Tuesday if can be arranged. 2. CONTINUE CURRENT MEDICATIONS 3. ALL PATIENT QUESTIONS ANSWERED RELATED TO MEDICATIONS, PLAN OF CARE, AND EXPECTED OUTCOMES. 4. SAFETY PLAN DISCUSSED 5. CBC and BMP in the morning, see if there are improvements, GISELA CELESTIN MD Nov 13, 2020 10:14
--- NOTE | 2020-11-13 15:45 | NUR ---
HOSPITALIST Dr. Pat contacted by this RN in order to verify the medications on hold were to stay on hold.
[2020-11-13 16:54] VITALS: BP 120/59
--- NOTE | 2020-11-13 20:13 | NUR ---
PIRP P: ALTERED THOUGHT PROCESS; FALL RISK I: Q 15 MINUTE MONITORING; PROVIDE A SAFE AND SUPPORTIVE ENVIRONMENT; ASSIST PATIENT IN DIFFERENTIATING BETWEEN INTERNAL AND EXTERNAL REALITY; PROVIDE MEDICATIONS WITH EXPLANATION OF NEED AND PURPOSE; USE EQUIPMENT NEEDED FOR PATIENT SAFETY; ASSESS FOR PRESENCE OF PSYCHOSIS, DEPRESSION, ANXIETY, SI/HI; PROVIDE ASSIST WITH SHOWERING AND TOILETING NEEDED; ENCOURAGE PARTICIPATION IN GROUP ACTIVITIES; 1:1 ALLOWING FOR EXPRESSION OF THOUGHTS AND FEELINGS R: Q 15 MINUTE MONITORING LOGGED; ALL EXITS SECURED, NON-PATIENT AREAS LOCKED, PATIENT AREAS KEPT FREE OF OBSTRUCTION; NO FALLS TODAY, HAD TO BE REMINDED NOT TO GET UP ON HIS OWN; WEARING RED SLIP PROOF DARIEN SOCKS; ATTENDED ALL GROUPS, MUSIC/OT/NURSING; SEEN BY Dr. Aragon VIA TELEMEDICINE WHERE HIS DC PLAN WAS DISCUSSED, PATIENT EXPRESSES DESIRE TO GO TO A NURSING FACILITY IN [place] WHICH IS LTC ; DENIES DEPRESSION,ANXIETY, STILL APPEARS CONVINCED HE HAD "WORMS CHEWING " IN THE LEFT LEG WOUND HE HAD BEEN DEALING WITH FOR 4 YEARS , STATES HE REALLY NEEDS TO STAY ON THAT "WORM MEDICINE" P: PLANNING FOR A DC TO RETIREMENT WITH HOME HEALTH FOR WOUND CARE. WOULD LIKE TO BE CLOSE TO HOME
[2020-11-13 20:23] VITALS: BP 143/64
--- NOTE | 2020-11-13 21:44 | PRM.CONS ---
Consultation Reason for Consult: Reason for Consultation: Renal insufficiency, anemia, pedal edema History of Present Illness History of Patient Comments Patient returns to the [facility] after being on the medical floor for blood transfusion due to severe chronic anemia without known source of active bleeding. His hemoglobin has remained adequate after transfusion and will need further outpatient workup with EGD and Colonoscopy through GI. Had hypotension and acute on chronic renal insufficiency. Blood pressure medication and diuretic for CHF were held. He was hydrated cautiously and renal function and blood pressure improved. He has had mild increase in his pedal edema and low dose lasi x has been started General: Alert, Cooperative, No acute distress HEENT: Atraumatic, PERRLA, EOMI Neck: Supple Lungs: Clear to auscultation, Other (Few bibasilar crackles) Heart: No murmurs, Other (Irregular irregular) Abdomen: Normal bowel sounds, Soft, No tenderness Extremities: No clubbing, No cyanosis, mild bilateral edema that is chronic Skin: Other (Lower leg chronic skin changes/pigmentation) Neuro: Normal speech, Normal tone, Sensation intact Psych/Mental Status: Other (Slightly confused) Review of Systems Allergies: Coded Allergies: No Known Allergies (Unverified , 10/31/20) Scheduled Atorvastatin 40MG (Lipitor 40MG), 1 TAB PO DAILY, (Reported) Ferrous Sulfate (Ferrous Sulfate), 1 TAB PO DAILY, (Reported) Gabapentin (Neurontin), 100 MG PO BID Melatonin (Melatonin), 3 MG PO HS Metoprolol Tartrate 50MG (Lopresser 50MG), 25 MG PO DAILY Risperidone (Risperdal), 1 MG PO TID Scheduled PRN Hydroxyzine Hcl (Hydroxyzine Hcl), 25 MG PO BID PRN for itching or anxiety Discontinued Medications Famotidine (Famotidine), 1 TAB PO BID, (Reported) Discontinued Reason: Discontinue Furosemide (Lasix), 40 MG PO DAILY24 Discontinued Reason: HOLD Glipizide (Glipizide), 1 TAB PO DAILY, (Reported) Discontinued Reason: Discontinue Meclizine Hcl (Meclizine Hcl), 12.5 MG PO DAILY24, (Reported) Discontinued Reason: Discontinue Metoprolol Succinate (Metoprolol Succinate), 1 TAB PO DAILY Discontinued Reason: Discontinue Mupirocin (Mupirocin), 1 APPLIC TP DAILY24, (Reported) Discontinued Reason: Discontinue Ramipril (Ramipril), 1 CAP PO QD, (Reported) Discontinued Reason: Discontinue Triamcinolone Acetonide (Triamcinolone Acetonide), 1 APPLIC TP DAILY24, (Reported) Discontinued Reason: Discontinue VTE VTE Risk Total Score: 3 VTE Risk Score VTE Risk: Score 0-1 = Low Risk (Aggressive mobilization; early ambulation; no VTE prophylaxis required) Score 2: Moderate Risk (Intermittent/Pneumatic Compression Device OR Lovenox/Heparin/Coumadin) Score 3-4: High Risk (Intermittent/Pneumatic Compression Device AND Lovenox/Heparin/Coumadin) Score > or =5: Highest Risk (Intermittent/Pneumatic Compression Device AND Lovenox/Heparin/Coumadin) Antico:Hep/LMWH/Coum/Xarelto: No Mechanical device ordered: Yes Reasons not ordering prophylax: Renal impairment, At risk for falls, Tx not tolerated Assessment/Plan Assessment/Plan Assessment/Plan Chronic anemia: Recommend recheck of HGB prior to discharge on Tuesday and outpatient follow up with GI and hematology Renal Insufficiency: Recheck creatinine prior to discharge, has been improving on serial checks CHF: recommend re-evaluation of status on new dose of lasix prior to discharge ISRAEL ALEMAN MD Nov 13, 2020 21:44
--- NOTE | 2020-11-14 05:33 | NUR ---
PIRP- P- ALTERED THOUGHT PROCESS I- PROVIDE MEDICATION ORDERED,PROVIDE OPPORTUNITY FOR PT. TO EXPRESS THOUGHTS AND FEELINGS,PROVIDE,OBSERVE BEHAVIORS. Q 15 MIN. MONITORING. R- PT. DENIED DEPRESSION AND ANXIETY TONIGHT. DECLINED TO ATTEND GROUP STATING HE WAS TIRED TONIGHT AND JUST WANTED TO REST IN BED. DR. ISRAEL RUTH VISITED WITH PT. AND ORDER RECEIVED TO START LASIX 20 MG PO DAILY. TOOK MEDICATION ORDERED. INITIATED INTERACTION. PLEASANT AFFECT. PT. CONTINUE TO BE FALL RISK AND IS WEARING RED NON SKID SOCKS,BED IN LOW POSITION AND STAFF TO ASSIST WITH TRANSFER AND/ OR STANDBY ASSIST WHEN NEEDED. PT. RESTING IN BED WITH EYES CLOSED AT THIS TIME. P- WILL CONTINUE TO PROVIDE SAFE AND SUPPORTIVE ENVIRONMENT,OBSERVE BEHAVIORS,PROVIDE MEDICATION ORDERED AND 1:1 INTERVENTION ALLOWING PT. TO EXPRESS THOUGHTS AND FEELINGS.
[2020-11-14 08:34] VITALS: BP 139/84
[2020-11-14] MEDS ORDERED: FERROUS SULFATE PO ONE (09:46)
[2020-11-14] MEDS ORDERED: LIPITOR ONE ×2 (09:47→09:58)
[2020-11-14] MEDS: NEURONTIN PO SCH ×3 (09:52→20:51)
[2020-11-14] MEDS: FERROUS SULFATE PO SCH (09:52)
[2020-11-14] MEDS: KEFLEX PO SCH ×2 (09:53→20:51)
[2020-11-14] MEDS: LOPRESSER PO SCH (09:53)
[2020-11-14] MEDS: LIPITOR PO SCH (09:54)
[2020-11-14] MEDS: LASIX PO SCH (09:54)
[2020-11-14] MEDS: RISPERDAL PO SCH ×2 (09:55→20:51)
--- NOTE | 2020-11-14 14:50 | NUR ---
TELEMED PT WAS SEEN BY Filipe DIAZ NP. RECEIVED ORDERS TO INCREASE DOSE OF GABAPENTIN, SEE EMR.
--- NOTE | 2020-11-14 14:55 | PRM.PN ---
Mood: I feel fine, my ankles are hurting Sleep: 7 hours Appetite: good Suidical thoughts: denies Homicidal thoughts: denies Recent stressors: fearful worms are worse, Family support: distant relatives Aggressive Behavior: denies Ability to Perform ADL'sc: not always waiting for staff assist with walking Psychotic sympstoms: they think I am crazy about worms, I see them Manic Symptoms: the ankles is the only damn problem I have Living situation: was at home Family,PT,Surgical,&Current HX: (1) Delusional disorder (2) Insomnia (3) Anxiety Anxity Symptoms: the ankles, Anger/Irritablility: denies Muscle Strength & Tone: WNL Gait & Station: Normal stance/post/gait Appearance: Well groomed/hygience Attitude & Behaviour: Cooperative/Pleasant Mood & Affect: Full Orientation: Fully oriented per interv Attention/Concentration: Fair attention, Fair concentration Speech: Reg rate/vol/rhyth/prosod (RATHER LOUD) Judgement/Insight: Fair judgement, Fair insight Thought Process: Circumferential Language: Thai Thought content/Abnormal/Psych: A/V Wolfe (TACTILE, WORMS, ) Fund of Knowledge: WNL Associations: Other Constitutional: None Neurological: Dizziness (less, he denies) Psychiatric: Psychosis [place] I: delusional disorder Assessment/Plan Assessment/Plan Plan Nursing: Social work is working on SNF for placement - [facility], in [place], he is familiar with people from there even reported the food is good This morning, was being funny, told a staff member inappropriate comment, not otherwise intrusive he can relax, not needing staff to entertain him or answer questions on his other leg- he has scratched it, a belief or fear that the worms are moving to the other leg dizziness- still occurs, APS has been involved with his care- patient: I think it's Tuesday, correct knows snf is in [place], this Is Jc, president of the [employer]" is I forget what his last name Laboratory Tests 11/13/20 16:41: Bedside Glucose 190H 11/13/20 20:54: Bedside Glucose 183H 11/14/20 08:15: Bedside Glucose 165H Vital Signs Date Time Temp Pulse Resp B/P (MAP) Pulse Ox O2 Delivery O2 Flow Rate FiO2 4/9/21 09:54 139/84 11/14/20 09:53 82 11/14/20 08:34 97.8 18 96 Room Air Current Medications Medications (Trade) Dose Ordered Sig/Reva PRN Reason Start Time Stop Time Status Last Admin Cephalexin (Keflex) 500 mg BID 11/11/20 21:00 11/18/20 23:00 11/14/20 09:53 Furosemide (Lasix) 20 mg DAILY 11/14/20 09:00 12/14/20 08:59 11/14/20 09:54 SUMMARY; HE IS AWARE NO ONE HAS SEEN THE WORMS AND DOES NOT BELIEVE HIM, HE IS WORRIED THEY JUST CHANGES TO THE OTHER ANKLE CONSENT: Consent was obtained by patient for telemedicine visit. Consent was obtained for the presence of staff member throughout encounter. Privacy was maintained throughout encounter PLAN: 1. CONTINUE BEHAVIORAL HEALTH MANAGEMENT. DISCHARGE TO REHAB/SNF - pending ar rangements for Tuesday 2. INCREASE GABAPENTIN TO 100MG PO TID BIT OF HYPOMANIA WELL NERVE PAIN SENSATION HE INTERPRETS WORMS 3. ALL PATIENT QUESTIONS ANSWERED RELATED TO MEDICATIONS, PLAN OF CARE, AND EXPECTED OUTCOMES. 4. SAFETY PLAN DISCUSSED TOM DIAZ NP Nov 14, 2020 14:55
--- NOTE | 2020-11-14 18:58 | NUR ---
PIRP P: ALTERED THOUGHT PROCESS, FALL RISK I: Q15 MIN MONITORING, ASSESS FOR PSYCHOTIC SYMPTOMS, GIVE CLEAR AND SIMPLE INSTRUCTIONS, RE-ORIENT TO REALITY NEEDED, USE BED ALARM, REDIRECT WITH VERBALIZATION, PROVIDE TASK-ORIENTED ACTIVITIES, ALTERNATE REST/ACTIVITY, REINFORCE FALL PREVENTION TECHNIQUES AND APPROPRIATE USE OF ADAPTIVE EQUIPMENT, GIVE MEDICATIONS ORDERED, PROVIDE POSITIVE FEEDBACK ON APPROPRIATE BEHAVIOR R: PT HAS BRIGHT, CHEERFUL AFFECT THROUGHOUT SHIFT. HAS NOT EXHIBITED THREATENING OR COMBATIVE BEHAVIORS, IS NOT EXIT-SEEKING. TAKES MEDICATIONS ORDERED, IS COOPERATIVE WITH ADLS, AND PARTICIPATES IN GROUP ACTIVITIES WITH MINIMAL PROMPTING. DENIES DEPRESSION, ANXIETY, SI/HI. DENIES AVH, BUT HAS MADE DELUSIONAL STATEMENTS REGARDING WORMS IN HIS LEGS "MOVING OVER TO THE OTHER ONE." PT FREQUENTLY ATTEMPTS TO AMBULATE WITHOUT STAFF ASSIST, BUT IS EASILY REDIRECTED WITH VERBALIZATION. P: REINFORCE FALL PREVENTION TECHNIQUES, REINFORCE MEDICATION EDUCATION
[2020-11-14 19:51] VITALS: BP 123/54
--- NOTE | 2020-11-15 04:23 | NUR ---
PIRP- P- ALTERATION IN THOUGHT PROCESS AND FALL RISK I- PROVIDE SAFE AND SUPPORTIVE ENVIRONMENT,PROVIDE MEDICATION ORDERED,OBSERVE BEHAVIORS AND Q 15 MIN. MONITORING. R- PT. ORIENTED TO NAME AND MONTH NOT YEAR. DENIED DEPRESSION AND ANXIETY THIS SHIFT. ATTENDED GROUP,ATE SNACKS AND PARTICIPATED IN GROUP ACTIVITIES. CHEERFUL AFFECT. TOOK MEDICATION ORDERED. JOKED APPROPRIATELY AT TIMES. PROVIDED STANDBY ASSIST WHEN NEEDED. PT. TOLD GROUP THAT HE WAS EXCITED TO GO TO THE [facility] WHEN DISCHARGED FROM HERE.RESTING IN BED WITH EYS CLOSED AT THIS TIME. P- WILL CONTINUE TO PROVIDE SAFE AND SUPPORTIVE ENVIRONMENT,PROVIDE STANDBY ASSIST ,PROVIDE MEDICATION ORDERED. OBSERVE BEHAVIORS.PROVIDE 1:1 INTERVENTION ALLOWING FOR PT. TO EXPRESS THOUGHTS AND FEELINGS.
[2020-11-15 08:24] VITALS: BP 129/67
[2020-11-15] MEDS ORDERED: FERROUS SULFATE PO ONE (08:41)
[2020-11-15] MEDS ORDERED: LIPITOR ONE (08:43)
[2020-11-15] MEDS: KEFLEX PO SCH ×2 (08:47→20:37)
[2020-11-15] MEDS: FERROUS SULFATE PO SCH (08:47)
[2020-11-15] MEDS: NEURONTIN PO SCH ×3 (08:48→20:37)
[2020-11-15] MEDS: RISPERDAL PO SCH ×2 (08:48→20:38)
[2020-11-15] MEDS: LASIX PO SCH (08:48)
[2020-11-15] MEDS: LIPITOR PO SCH (08:49)
[2020-11-15] MEDS: LOPRESSER PO SCH (08:49)
--- NOTE | 2020-11-15 14:44 | PRM.PN ---
Mood: "fantastic" drinking coffee and going to the BR today Sleep: 7.5 hours Appetite: good, Suidical thoughts: denies Homicidal thoughts: denies Recent stressors: not now -then says wants to get car from [facility] Family support: distant relatives Aggressive Behavior: not present Ability to Perform ADL'sc: voiding standby and ambulating standby, Psychotic sympstoms: worms only mentioned in am, prior to cares Manic Symptoms: not hyperactive, not in others person space, Living situation: has own place- Family,PT,Surgical,&Current HX: (1) Delusional disorder (2) Anxiety Anxity Symptoms: worms, working on the ankles Anger/Irritablility: denies Muscle Strength & Tone: WNL Gait & Station: Normal stance/post/gait Appearance: Well groomed/hygience Attitude & Behaviour: Cooperative/Pleasant Mood & Affect: Expansive Orientation: Fully oriented per interv Attention/Concentration: Fair attention, Fair concentration Speech: Reg rate/vol/rhyth/prosod Judgement/Insight: Fair judgement, Fair insight Thought Process: Linear/goal directed Language: Thai Thought content/Abnormal/Psych: A/V Wolfe (tactile with worms but minimal) Fund of Knowledge: WNL Associations: WNL/Normal Associations Constitutional: None Neurological: Dizziness (minimal complaints) Psychiatric: Psychosis [place] I: delusional disorder Assessment/Plan Assessment/Plan Plan Nursing: in group today he was talking much, he was supportive of others, he was appropriate no sexually inappropriate to staff but does say odd items such as "busy as a vibrator" he mentioned the worms this morning but cares done and he did not mention after suspected his baseline is jokey type, maybe not always appropriate jokes staying oriented, he did ask if it's november or december, says sophie that leases from him was supposed to put money in bank knew mail is at home and he has been at hospital, at times needs moment to orient himself Vital Signs Date Time Temp Pulse Resp B/P (MAP) Pulse Ox O2 Delivery O2 Flow Rate FiO2 11/15/20 08:49 73 129/67 11/15/20 08:24 98.1 16 97 Room Air Current Medications Medications (Trade) Dose Ordered Sig/Reva PRN Reason Start Time Stop Time Status Last Admin Furosemide (Lasix) 20 mg DAILY 11/14/20 09:00 12/14/20 08:59 11/15/20 08:48 Gabapentin (Neurontin) 100 mg TID 11/14/20 15:30 12/10/20 15:29 11/15/20 08:48 Summary: Doing well, pleasant, easily recognizes me and my role, much more accepting today that the feeling in ankles is related to nerve pain and poor circulation, expressed dementia sx he was having prior to blood transfusion/fluids, he has some insight into this, 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 Consent was obtained for the presence of staff member throughout encounter. Privacy was maintained throughout encounter PLAN: 1. CONTINUE BEHAVIORAL HEALTH MANAGEMENT. DISCHARGE TUESDAY TO REHAB/SNF 2. CONTINUE CURRENT MEDICATIONS PRESCRIBED. STAFF AGREEABLE WITH PLAN 3. ALL PATIENT QUESTIONS ANSWERED RELATED TO MEDICATIONS, PLAN OF CARE, AND EXPECTED OUTCOMES. 4. SAFETY PLAN DISCUSSED. 5. WILL ORDER LABS PRIOR TO DISCHARGE TUESDAY- CBC, CMP,LIPIDS TOM DIAZ CLEANER HOUSEKEEPING Nov 15, 2020 14:44
--- NOTE | 2020-11-15 14:45 | NUR ---
TELEMED PT WAS SEEN BY Filipe DIAZ NP VIA TELEMED. NO NEW ORDERS.
--- NOTE | 2020-11-15 17:54 | NUR ---
PIRP P: ALTERED THOUGHT PROCESS, FALL RISK I: Q15 MIN MONITORING, ASSESS FOR PSYCHOTIC SYMPTOMS, GIVE CLEAR AND SIMPLE INSTRUCTIONS, RE-ORIENT TO REALITY NEEDED, USE BED ALARM, REDIRECT WITH VERBALIZATION, PROVIDE TASK-ORIENTED ACTIVITIES, ALTERNATE REST/ACTIVITY, REINFORCE FALL PREVENTION TECHNIQUES AND APPROPRIATE USE OF ADAPTIVE EQUIPMENT, GIVE MEDICATIONS ORDERED, PROVIDE POSITIVE FEEDBACK ON APPROPRIATE BEHAVIOR R: PT HAS BRIGHT, CHEERFUL AFFECT THROUGHOUT SHIFT. HAS NOT EXHIBITED THREATENING OR COMBATIVE BEHAVIORS, HAS NOT BEEN EXIT-SEEKING. DENIES FEELINGS OF DEPRESSION/ANXIETY, SI/HI. PT REPORTS HE FEELS "THOSE DAMN WORMS DIGGING AWAY IN THERE." WHEN ASKED IF HE COULD SEE THE WORMS, PT STATED, "I DON'T NEED TO SEE THEM, I FEEL THEM!" PT IS ABLE TO BE REDIRECTED WITH VERBALIZATION, TAKES MEDICATIONS ORDERED, AND IS ABLE TO FOLLOW SIMPLE INSTRUCTIONS WITHOUT DIFFICULTY. PARTICIPATES IN GROUP ACTIVITIES AND IS COOPERATIVE WITH ADLS. HAS BEEN COOPERATIVE WITH FALL PREVENTION TECHNIQUES. P: RE-ORIENT TO REALITY NEEDED, REINFORCE MEDICATION EDUCATION
[2020-11-15 19:35] VITALS: BP 135/65
[2020-11-15] MEDS ORDERED: RISPERDAL ONE (20:33)
--- NOTE | 2020-11-16 06:16 | NUR ---
P.I.R.P. P. ALTERATION IN THOUGHT PROCESS I. PROVIDE EVERY 15 MINUTE CHECKS, PROVIDE SAFE ENVIRONMENT, PROVIDE MEDICATIONS ORDERED PER MD, PROVIDE 1:1 INTERVENTION TO ALLOW PATIENT TO EXPRESS FEELINGS AND CONCERNS. PROVIDE TASK ORIENTED GROUP ACTIVITIES AND ENCOURAGE PARTICIPATION. R. PATIENT TOOK MEDS ORDERED, WAS FORGETFUL OF TIME , PLEASANT, CHEERFUL, PARTICIPATED IN GROUP ACTIVITY, INTERACTED APPROPRIATELY, VOICED HE FELT THE WORMS COMING BACK, THIS TIME TO RIGHT LOWER LEG/[place]UTH[place]E AREA, PATIENT IS NOTED WITH WHAT APPEARS SCABBED AREA TO ANTERIOR RIGHT [place] AREA, NO REDNESS, NO DRAINAGE, PER REPORT PATIENT HAS BEEN NOTED SCRATCHING AREA WITH LEFT FOOT, THIS WAS NOT NOTED THIS SHIFT. PATIENT DENIES ANXIETY, DENIES DEPRESSION. P. CONTINUE CURRENT PLAN OF CARE
[2020-11-16 09:11] VITALS: BP 132/60
[2020-11-16] MEDS ORDERED: LIPITOR ONE (09:14)
[2020-11-16] MEDS ORDERED: FERROUS SULFATE PO ONE (09:14)
[2020-11-16] MEDS: NEURONTIN PO SCH ×3 (09:15→20:20)
[2020-11-16] MEDS: LASIX PO SCH (09:15)
[2020-11-16] MEDS: KEFLEX PO SCH ×2 (09:15→20:20)
[2020-11-16] MEDS: LIPITOR PO SCH (09:15)
[2020-11-16] MEDS: RISPERDAL PO SCH ×2 (09:15→20:20)
[2020-11-16] MEDS: LOPRESSER PO SCH (09:15)
[2020-11-16] MEDS: FERROUS SULFATE PO SCH (09:16)
--- NOTE | 2020-11-16 12:18 | NUR ---
TELEMED PT WAS SEEN BY Filipe DIAZ NP. RECEIVED ORDERS FOR CBC, CMP, AND LIPID PANEL ON 11/17/20, SEE EMR.
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
--- NOTE | 2020-11-16 18:13 | NUR ---
PIRP P: ALTERED THOUGHT PROCESS, FALL RISK I: Q15 MIN MONITORING, ASSESS FOR PSYCHOTIC SYMPTOMS, GIVE CLEAR AND SIMPLE INSTRUCTIONS, RE-ORIENT TO REALITY NEEDED, USE BED ALARM, PROVIDE TASK-ORIENTED ACTIVITIES, REINFORCE FALL PREVENTION TECHNIQUES AND APPROPRIATE USE OF ADAPTIVE EQUIPMENT, GIVE MEDICATIONS ORDERED R: PT HAS BRIGHT, CHEERFUL AFFECT THROUGHOUT SHIFT. HAS NOT EXHIBITED THREATENING, COMBATIVE, OR INAPPROPRIATE BEHAVIORS. PARTICIPATES IN GROUP ACTIVITIES, TAKES MEDICATIONS ORDERED, AND IS COOPERATIVE WITH ADLS. EXHIBITS IMPROVED STRENGTH AND ABILITY TO AMBULATE WITH USE OF WALKER. INITIATES INTERACTION WITH STAFF AND PEERS, RESPONDS APPROPRIATELY TO APPROACH. DENIES FEELINGS OF DEPRESSION, ANXIETY, SI/HI. DENIES AV HALLUCINATIONS, BUT DOES BELIEVE "THOSE DAMN INSECTS" HAVE MOVED TO HIS RLE. PT IS ABLE TO BE REDIRECTED WITH VERBALIZATION. P: RE-ORIENT TO REALITY NEEDED, REINFORCE EDUCATION REGARDING ALTERED GLUCOSE METABOLISM
[2020-11-16 19:35] VITALS: BP 139/88
[2020-11-16] MEDS ORDERED: RISPERDAL ONE (20:15)
--- NOTE | 2020-11-17 05:02 | NUR ---
PIRP- P- ALTERATION IN THOUGHT PROCESS AND FALL RISK I- PROVIDE SAFE AND SUPPORTIVE ENVIRONMENT,OBSERVE BEHAVIORS,PROVIDE MEDICATION ORDERED AND Q 15 MIN. MONITORING. R- R- PT. ORIENTED TO NAME AND MONTH BUT SAYS IT IS 2017. DENIES DEPRESSION AND ANXIETY. ATTENDED GROUP,ATE SNACKS,INITIATED INTERACTION WITH PEERS AND STAFF. PARTICIPATED IN GROUP ACTIVITY. CHEERFUL AFFECT. NO INAPPROPRIATE BEHAVIORS OBSERVED. DENIES HALLUCINATIONS AND DELUSIONS. PT. HAS IMPROVED AMBULATING WITH WALKER AND IS WEARING RED NON-SKID SOCKS. P- WILL CONTINUE TO PROVIDE 1:1 INTERVENTION ALLOWING FOR PT. TO EXPRESS THOUGHTS AND FEELINGS. OBSERVE BEHAVIORS. PROVIDE MEDICATION ORDERED. PROVIDE STANDBY ASSIST WHEN TRANSFERRING OR AMBULATING NEEDED.
[2020-11-17 05:46] LABS: BASOPHIL # 0.4 10^3/uL (0.0-0.1); BASOPHIL % 9.8 % (0.0-0.2); EOSINOPHIL # 0.1 10^3/uL (0.0-0.2); EOSINOPHIL % 2.8 % (0.0-5.0); LYMPHOCYTES # 1.57 10^3/uL1 (1.0-4.8); LYMPHOCYTES % 39.4 % (24.0-44.0); MEAN CORP HGB 32.3 pg (26-34); MONOCYTES # 0.3 10^3/uL (0.3-0.8); MONOCYTES % 6.5 % (5.0-12.0); NEUTROPHIL # 1.7 10^3/uL (1.8-7.7); NEUTROPHILS % 41.5 % (41.0-85.0); PLATELET COUNT 167 10^3/uL (150-400); RED CELL DISTRIBUTION WIDTH 16.2 % (11.5-14.5)
[2020-11-17 05:53] LABS: CALCIUM 8.6 mg/dL (8.4-10.5)
[2020-11-17 06:10] LABS: LYMPHOCYTE 40 % (25-36); SEGMENTED NEUTROPHILS 52 % (31-76)
[2020-11-17 06:11] LABS: ANISOCYTOSIS 1+ (NEGATIVE); EOSINOPHIL 2 % (1-4); MONOCYTE 6 % (3-9); OVALOCYTES 3+ (NEGATIVE)
[2020-11-17 07:32] VITALS: BP 127/69
[2020-11-17] MEDS ORDERED: LIPITOR ONE (08:41)
[2020-11-17] MEDS: LASIX PO SCH (08:42)
[2020-11-17] MEDS: RISPERDAL PO SCH ×2 (08:42→21:00)
[2020-11-17] MEDS: LIPITOR PO SCH (08:42)
[2020-11-17] MEDS: NEURONTIN PO SCH ×3 (08:42→21:02)
[2020-11-17] MEDS: KEFLEX PO SCH ×2 (08:42→21:02)
[2020-11-17] MEDS ORDERED: FERROUS SULFATE PO ONE (08:43)
[2020-11-17] MEDS: LOPRESSER PO SCH (08:43)
[2020-11-17] MEDS: FERROUS SULFATE PO SCH (08:44)
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
[2020-11-17] MEDS ORDERED: GABA100C PO (10:20)
[2020-11-17] MEDS ORDERED: RISP1TAB45 PO (10:20)
--- NOTE | 2020-11-17 11:17 | NUR ---
Telemedicine Seen by Psych Sheng Gunderson PRINCIPAL PROGRAMMER. No changes.
--- NOTE | 2020-11-17 15:41 | NUR ---
PIRP P: ALTERED THOUGHT PROCESS; I: Q 15 MINUTE MONITORING; PROVIDE A SAFE SUPPORTIVE ENVIRONMENT; 1:1 ALLOWING FOR EXPRESSION OF THOUGHTS AND FEELINGS; PROVIDE MEDICATIONS ORDERED WITH EXPLANATION OF NEED PURPOSE; ASSESS MOOD; ASSESS DEPRESSION, ANXIETY, SI/HI, PSYCHOSIS; PROVIDE GROUP ACTIVITIES; REDIRECT AND REORIENT NEEDED; MONITOR PO INTAKE R: Q 15 MINUTE MONITORING LOGGED; NO OBSTRUCTIONS IN PATIENT AREAS, EXITS SECURE; NON-PATIENT AREAS LOCKED; PATIENT'S MOOD HAS BEEN EUPHORIC AND INTRUSIVE, NOT ALLOWING OTHER PATIENT'S TO TALK WHEN IT WAS THEIR TURN, HARD TO REDIRECT, BETTER THIS AFTERNOON; PARTICIPATED IN MUSIC THERAPY AND PLAYED [employer] FOR OT; HAS A GOOD APPETITE, FINISHING. 75% OF ALL MEALS AND SNACKS; DENIES DEPRESSION, ANXIETY, SI/HI; STILL CLAIMS TO HAVE "BUGS" IN HIS WOUNDS, WHICH HAVE MOVED FROM THE LEFT TO THE RIGHT LEG, "THE MALE AND FEMALE MUST HAVE HAD BABIES" UNABLE TO CONVINCE PATIENT HE IS ACTUALLY EXPERIENCING NEUROPATHIC PAIN, NOT INSECTS P: DC PLANNING TO LTC NURSING IN [place] POSSIBLY 11/18/20
--- NOTE | 2020-11-17 18:14 | DIET.OP ---
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 Glipizide and Humulin on hold. BG has been 136-231 mg/dl the last 3 days. Current Diet Order/Nutrition S: 1800 2gm Na Pertinent Labs Laboratory Tests Test 11/15/20 20:08 11/16/20 08:11 11/16/20 20:03 11/17/20 05:23 Bedside Glucose 209 136 231 White Blood Count 4.0 10^3/uL Red Blood Count 2.57 10^6/uL Hemoglobin 8.3 g/dL Hematocrit 24.7 % Mean Corpuscular Volume 96.1 fL Mean Corpuscular Hemoglobin 32.3 pg Mean Corpuscular Hemoglobin Concent 33.6 g/dL Red Cell Distribution Width 16.2 % Platelet Count 167 10^3/uL Mean Platelet Volume 11.9 fL Neutrophils (%) (Auto) 41.5 % Lymphocytes (%) (Auto) 39.4 % Monocytes (%) (Auto) 6.5 % Neutrophils # (Auto) 1.7 10^3/uL Lymphocytes # (Auto) 1.57 10^3/uL1 Monocytes # (Auto) 0.3 10^3/uL Absolute Immature Granulocyte (auto 0 10^3 u/L Absolute Eosinophils (auto) 0.1 10^3/uL Immature Granulocytes % 0.00 % Eosinophils % 2.8 % Basophils % 9.8 % Basophils # 0.4 10^3/uL Sodium Level 140 mmol/L Potassium Level 4.3 mmol/L Chloride Level 106.0 mmol/L Carbon Dioxide Level 26.0 mmol/L Anion Gap 12.3 Blood Urea Nitrogen 28 mg/dL Creatinine 1.63 mg/dL Estimated GFR () 48.9 Est GFR (CKD-EPI)(Non-Afr Montenegrin) 40.4 BUN/Creatinine Ratio 17.0 Glucose Level 150 mg/dL Calcium Level 8.6 mg/dL Total Bilirubin 0.4 mg/dL Aspartate Amino Transf (AST/SGOT) 14 U/L Alanine Aminotransferase (ALT/SGPT) 24 U/L Alkaline Phosphatase 91 U/L Total Protein 6.2 g/dL Albumin 2.6 g/dL Globulin 3.6 Albumin/Globulin Ratio 0.722 Triglycerides Level 31 mg/dL Cholesterol Level 97 mg/dL LDL Cholesterol, Calculated 48.8 VLDL Cholesterol, Calculated 6.2 HDL Cholesterol 42 mg/dL Cholesterol Ratio (LDL/HDL) 1.1 Cholesterol/HDL Ratio [id number] Test 11/17/20 05:49 11/17/20 07:44 Segmented Neutrophils 52 % Lymphocytes 40 % Monocytes 6 % Absolute Eosinophils (Manual) 2 % Platelet Estimate ADEQUATE Platelet Morphology NORMAL Poikilocytosis 1+ Anisocytosis 1+ Ovalocytes 3+ Bedside Glucose 147 Height (Feet): 5 Height (Inches): 10 Current Weight: 250 %IBW: 151 Recent Weight Change: No (no updated wt to assess) Weight Status: Obese Food Allergies: No Cultural/Ethnic/Taoist Peyotn: none known Skin Integrity/Comment: Yes (wound to L foot, chronic - healing) Current %PO: Good(75-100%) Calories/Kcals/K-25 kcal/kg IBW Kcals Calculated: for wt loss Protein g/k-1.2 g/kg of IBW Protein Calculated: 89-107g Fluid: ml: 7411-5185 or 1 ml/kcal Nutritional Problem: Nutr. Problems Present Problems: altered nutrition related labs: blood glucose Etiology: T2DM, not following consistent carb diet Signs/Symptoms: BG 132-231 mg/dl the last [address] Comments: 1. Continue current diet. Recommend snacks consistent with DM diet. 2. Tight blood glucose control to promote wound healing - Continue to monitor BG 3. Diet education not appropriate. 4. Monitor renal function Expected Outcomes BG 100-150 mg/dl the next 5 days. - not met, continue Diet education provided by RD as appropriate - not appropriate at this time. Discharge on cardiac/consistent carb diet Malnutrtion/Nutrition Risk Edu: No MD Notificiation Needed?: No Anayeli Bullock Nov 17, 2020 18:14
[2020-11-17 19:30] VITALS: BP 133/56
[2020-11-17] MEDS ORDERED: RISPERDAL ONE (21:01)
--- NOTE | 2020-11-18 06:26 | NUR ---
P.I.R.P. P. ALTERATION IN THOUGHT PROCESS I. PROVIDE EVERY 15 MINUTE CHECKS, PROVIDE SAFE ENVIRONMENT, PROVIDE MEDICATIONS ORDERED PER MD, PROVIDE 1:1 INTERVENTION TO ALLOW PATIENT TO EXPRESS FEELINGS AND CONCERNS. PROVIDE TASK ORIENTED GROUP ACTIVITIES AND ENCOURAGE PARTICIPATION. PATIENT WITH BED ALARM FOR SAFETY. R. PATIENT TOOK MEDS ORDERED, NO PRN MEDS, PATIENT PARTICIPATED IN GROUP ACTIVITY, DID NOT MENTION WORMS TO LEGS. SOCIALIZED APPROPRIATELY, DENIES ANXIETY OR DEPRESSION OR SUICIDAL IDEATION. P. CONTINUE CURRENT PLAN OF CARE.
[2020-11-18 08:39] VITALS: BP 123/70
[2020-11-18] MEDS ORDERED: FERROUS SULFATE PO ONE (08:59)
[2020-11-18] MEDS: NEURONTIN PO SCH ×3 (09:02→21:05)
[2020-11-18] MEDS: FERROUS SULFATE PO SCH (09:02)
[2020-11-18] MEDS: RISPERDAL PO SCH ×2 (09:02→21:05)
[2020-11-18] MEDS: LIPITOR PO SCH (09:02)
[2020-11-18] MEDS ORDERED: LIPITOR ONE (09:02)
[2020-11-18] MEDS: LOPRESSER PO SCH (09:03)
[2020-11-18] MEDS: LASIX PO SCH (09:03)
[2020-11-18] MEDS: KEFLEX PO SCH ×2 (09:03→21:05)
[2020-11-18] MEDS ORDERED: FURO20TA3 PO (16:04)
[2020-11-18] MEDS ORDERED: FAMO20TA5 PO (16:09)
[2020-11-18] MEDS ORDERED: MUPI22OI2 TP (16:09)
[2020-11-18] MEDS ORDERED: [UNRECOGNIZED DRUG - CODE] PO (16:09)
[2020-11-18] MEDS ORDERED: RAMI10CA36 PO (16:09)
--- NOTE | 2020-11-18 16:10 | NUR ---
PIRP P: ALTERED THOUGHT PROCESS, FALL RISK I: GIVE MEDICATIONS ORDERED, PROVIDE 1:1 TO ALLOW EXPRESSION OF FEELINGS, PROVIDE A SAFE ENVIRONMENT, EDUCATE PT ON USE OF EQUIPMENT, EDUCATE PT ON FALL PRECAUTIONS, PROVIDE MEDICATION EDUCATION, RE ORIENT TO REALITY, PROVIDE TASK ORIENTED ACTIVITIES R: PT TOOK ALL MEDICATIONS ORDERED, USED THE WALKER TO AMBULATE THIS SHIFT, PT USED BEDSIDE COMMODE NEEDED, PT ATTENDED ALL GROUPS AND ACTIVITIES, PT CONTINUES TO ASK/ANTICIPATE HIS TRANSFER TO [facility] P: PT IS SET TO DISCHARGE TO [facility] [place], [place] ON 11/19/20, CARE PLAN WILL INCLUDE THE CONTINUATION OF PT EDUCATION ON MEDS, RE ORIENTATION TO REALITY, AND SAFETY.
[2020-11-18] MEDS ORDERED: TRIA15CR TP (16:16)
[2020-11-18] MEDS ORDERED: GLIP5TAB10 PO (16:16)
--- NOTE | 2020-11-18 16:31 | PRM.PN ---
Mood: i am good, Sleep: 5 hours (similar to rest of the unit) Appetite: good Suidical thoughts: denies Homicidal thoughts: denies Recent stressors: getting tired, all the excitement Aggressive Behavior: not present Ability to Perform ADL'sc: minimal assist Manic Symptoms: can be mildly intrusive Living situation: 930am- goes to pcp evaluation Family,PT,Surgical,&Current HX: (1) Insomnia (2) Anxiety (3) Delusional disorder Anxity Symptoms: I've been ready for a week, Anger/Irritablility: denies Muscle Strength & Tone: WNL Gait & Station: Normal stance/post/gait Appearance: Well groomed/hygience Attitude & Behaviour: Cooperative/Pleasant Mood & Affect: Full Orientation: Fully oriented per interv Attention/Concentration: Fair attention, Fair concentration Speech: hyperverbal Judgement/Insight: Fair judgement, Poor insight Thought Process: Linear/goal directed Language: Thai Thought content/Abnormal/Psych: Delusions (does not talk of devil or worms at all today -) Fund of Knowledge: WNL Associations: WNL/Normal Associations Constitutional: None Neurological: None Psychiatric: Psychosis (some fixed beliefs but perceptions more consistently accurate) [place] I: delusional disorder, Assessment/Plan Assessment/Plan Plan Nursing: discharge delayed, covid 19 test done per snf request, Assisted shower today due to fall risk mildly intrusive, less than yesterday, patient: thrilled to , ready to go ready to go for a week, 930 morning, meets new pcp, Labs; improved hgn and hct, platelets now wnl, bun and creat much improved, better than admission labs blood sugars improved over stay, lipids wnl, VITALS STABLED DISCHARGED FROM Physical Therapy YESTERDAY, HE IS AMBULATING WITH WALKER WELL Vital Signs Date Time Temp Pulse Resp B/P (MAP) Pulse Ox O2 Delivery O2 Flow Rate FiO2 11/18/20 09:03 123/70 11/18/20 09:03 75 123/70 11/18/20 08:39 97.5 75 20 123/70 (87) 96 psychotropics: Gabapentin 100mg tid risperidone 0.5mg po bid, Summary: Today not talking of any of the fixed delusions, plesant, he is a bit bummed he hasn't been discharged but reports he has liked it so much he asks if he can come back and visit. CONSENT: Consent was obtained by patient for telemedicine visit. Consent was obtained for the presence of staff member throughout encounter. Privacy was maintained throughout encounter PLAN: 1. CONTINUE BEHAVIORAL HEALTH MANAGEMENT. DISCHARGE TUESDAY MORNING TO SNF 2. CONTINUE CURRENT MEDICATIONS PRESCRIBED. STAFF AGREEABLE WITH PLAN 3. ALL PATIENT QUESTIONS ANSWERED RELATED TO MEDICATIONS, PLAN OF CARE, AND EXPECTED OUTCOMES. 4. SAFETY PLAN DISCUSSED. TOM DIAZ NP Nov 18, 2020 16:31
--- NOTE | 2020-11-18 17:47 | NUR ---
TELEMED PT SEEN BY Saad DIAZ [facility] GR[employer]ER VIA TELEMED, NO MEDICATION CHANGES.
[2020-11-18 20:23] VITALS: BP 101/69
--- NOTE | 2020-11-19 05:39 | NUR ---
P.I.R.P. P. ALTERATION IN THOUGHT PROCESS I. PROVIDE EVERY 15 MINUTE CHECKS, PROVIDE SAFE ENVIRONMENT, PROVIDE MEDICATIONS ORDERED PER MD, PROVIDE 1:1 INTERVENTION TO ALLOW PATIENT TO EXPRESS FEELINGS AND CONCERNS. PROVIDE TASK ORIENTED GROUP ACTIVITIES AND ENCOURAGE PARTICIPATION. PATIENT WITH BED ALARM FOR SAFETY. R. PATIENT TOOK MEDS ORDERED, PARTICIPATED IN GROUP ACTIVITY, HAS BEEN PLEASANT, VOICES HE IS READY TO LEAVE THIS AM. PATIENT HAS NOT MENTIONED WORMS IN LEGS THIS SHIFT, PATIENT HAS HAD NO FALLS, HAS BEEN COOPERATIVE. NO PRN MEDS THIS SHIFT. P. PATIENT TO DISCHARGE TO [facility] TODAY.
[2020-11-19 08:07] VITALS: BP 85/54
[2020-11-19] MEDS: RISPERDAL PO SCH (08:44)
[2020-11-19] MEDS: FERROUS SULFATE PO SCH (08:44)
[2020-11-19] MEDS: LASIX PO SCH (08:44)
[2020-11-19] MEDS ORDERED: FERROUS SULFATE PO ONE (08:44)
[2020-11-19] MEDS: LIPITOR PO SCH (08:46)
[2020-11-19] MEDS ORDERED: LIPITOR ONE (08:46)
[2020-11-19] MEDS: NEURONTIN PO SCH (08:47)
[2020-11-19] MEDS: LOPRESSER PO SCH (08:47)
[2020-11-19 09:25] VITALS: BP 128/62
--- NOTE | 2020-11-19 09:35 | NUR ---
DISCHARGE PT DISCHARGED TO [facility]. DISCHARGE PAPERS SENT WITH PT. PT EXCITED TO BE LEAVING. SAID HE WILL BE GOING CLOSER TO HOME. LEFT WITH YOUNG STAFF. DENIES ANY PAIN OR DISCOMFORT. ALL BELONGINGS SENT WITH PT.
--- NOTE | 2020-11-19 14:38 | NUR ---
[employer] CALLED [employer] CALLED AT 1325 SAYING THAT PT WAS LOOKING FOR WALLET, CHECKBOOK AND KEYS. EXPLAINED THAT WOULD HAVE TO LOOK INTO IT IT WAS NOT LISTED ON HIS BELONGINGS SHEET CHECKED OFF THIS MORNING. ON INVESTIGATION WHEN PT WAS SENT TO MED SURG FOR TX OF ANEMIA BELONGINGS SHEET WITH SECURITY TAG WAS SENT TO MEDICAL RECORDS. NO NOTE MADE THAT ITEMS STILL IN SECURITY. SECURITY BROUGHT ITEMS TO UNIT MARKED OFF. ITEMS SENT VIA FED EX TO [facility] [employer] [facility]. [employer]IORITY. CALLED PLACED TO NICOLE AT [employer] AND EXPLAINED THAT ITEMS FOUND AND BEING SENT. KEYS GIVEN TO [facility] ON 11-06-2020 BY DIRECTION OF PT. WAS SIGNED FOR.
== END 2020-11-19 09:15 | DRG 885 ==
LOC: EEVIPCON 17:43 → GP 17:43 → UNDOLOA 11-09 14:59 → EDPENDDISTM 11-09 17:26 → UNDODISIN 11-09 18:00 → GP 11-10 12:10 → UNDOLOA 11-10 12:20 → GP 11-10 12:21 → EDPENDDISTM 11-19 09:00 → EDPENDDISDT 11-19 09:00 → EDPENDDISTM 11-19 09:15
PROVIDERS: ADMIT Psychiatry & Neurology Psychiatry; ATTEND Psychiatry & Neurology Psychiatry
DX: F22 Delusional disorders (principal); I13.0 Hypertensive heart and chronic kidney disease with heart failure and stage 1 through stage 4 chronic kidney disease, or unspecified chronic kidney disease; I48.20 Chronic atrial fibrillation, unspecified; I50.9 Heart failure, unspecified; E11.22 Type 2 diabetes mellitus with diabetic chronic kidney disease; N18.9 Chronic kidney disease, unspecified; D64.9 Anemia, unspecified; F03.90 Unspecified dementia, unspecified severity, without behavioral disturbance, psychotic disturbance, mood disturbance, and anxiety; R42 Dizziness and giddiness; F41.9 Anxiety disorder, unspecified; G47.00 Insomnia, unspecified; E11.40 Type 2 diabetes mellitus with diabetic neuropathy, unspecified
CPT/HCPCS: 36415; 71045; 80048; 80053; 80061; 81000; 81003; 82728; 82948; 83540; 83550; 85025; 85027; 85045; 87077; 87086; 87186; 87633; 93005; 97150; 97162; 97165; 97530; G0378; J1815; J7030; J7040; 97116-GP; J8597

== ENCOUNTER 2020-11-09 15:00 | Observation (INO) | payer MEDICARE ==
[~2020-11-09] VITALS: Ht 177.8 cm; Wt 121.1 kg
[2020-11-09] MEDS ORDERED: METO50TA6 PO (16:25)
[2020-11-09] MEDS ORDERED: GABA100C PO (16:39)
[2020-11-09] MEDS ORDERED: RISP1TAB45 PO (16:39)
[2020-11-09] MEDS ORDERED: MELA3TAB31 PO (16:39)
[2020-11-09] MEDS ORDERED: HYDR25TA PO (16:39)
[2020-11-09 20:02] VITALS: BP 131/75
[2020-11-09] MEDS ORDERED: LOPRESSOR PO STA (21:07)
--- NOTE | 2020-11-09 21:16 | PCM.HP ---
History of Present Illness Reason for Visit: (1) Anemia ICD Code: D64.9 - Anemia, unspecified SNOMED: 105927885 Hx of Present Illness Mr. Berry is a pleasant 85yoM who was in [facility] for treatment of delusional disorder whose hemoglobin remained persistently low, in the 7.5-8.5 range. There was no evidence of active bleed, and he remained in that unit on iron supplementation. This morning, he was acutely lethargic with measured orthostatic hypotension for which his ramipril and lasix were held, and repeat Hb revealed a drop to 6.9. His blood pressure responded to IVF, but given the anemia and firm limits on fluid bolus volume due to his CHF, he was transferred to the med/surg floor for transfusion. He reports that the symptoms this morning were transient and has been ambulating without dizziness or difficulty for the rest of the day, including this evening. Review of Systems Constitutional: No: Fever, Chills, Sweats, Weakness, Malaise Eyes: No: Vision change, Conjunctivae inflammation, Eyelid inflammation ENT: No: Nose discharge, Nose congestion, Mouth pain Respiratory: No: Shortness of breath, SOB with excertion Cardiovascular: No: Palpitations, Orthopnea, Paroxysmal Noc. Dyspnea Gastrointestinal: No: Vomiting, Abdominal Pain, Diarrhea Genitourinary: No Frequency Musculoskeletal: No: neck pain, shoulder pain Skin: No: Lesions, Jaundice Neurological: No: Weakness, Numbness, Incoordination, Change in speech Allergies: Coded Allergies: No Known Allergies (Unverified , 10/31/20) Scheduled Atorvastatin 40MG (Lipitor 40MG), 1 TAB PO DAILY, (Reported) Ferrous Sulfate (Ferrous Sulfate), 1 TAB PO DAILY, (Reported) Gabapentin (Neurontin), 100 MG PO BID Melatonin (Melatonin), 3 MG PO HS Metoprolol Succinate (Metoprolol Succinate), 1 TAB PO DAILY Metoprolol Tartrate 50MG (Lopresser 50MG), 25 MG PO DAILY Risperidone (Risperdal), 1 MG PO TID Scheduled PRN Hydroxyzine Hcl (Hydroxyzine Hcl), 25 MG PO BID PRN for itching or anxiety Discontinued Medications Famotidine (Famotidine), 1 TAB PO BID, (Reported) Discontinued Reason: Discontinue Furosemide (Lasix), 40 MG PO DAILY24 Discontinued Reason: HOLD Glipizide (Glipizide), 1 TAB PO DAILY, (Reported) Discontinued Reason: Discontinue Meclizine Hcl (Meclizine Hcl), 12.5 MG PO DAILY24, (Reported) Discontinued Reason: Discontinue Mupirocin (Mupirocin), 1 APPLIC TP DAILY24, (Reported) Discontinued Reason: Discontinue Ramipril (Ramipril), 1 CAP PO QD, (Reported) Discontinued Reason: Discontinue Triamcinolone Acetonide (Triamcinolone Acetonide), 1 APPLIC TP DAILY24, (Reported) Discontinued Reason: Discontinue VTE VTE Risk Total Score: 3 VTE Risk Score VTE Risk: Score 0-1 = Low Risk (Aggressive mobilization; early ambulation; no VTE prophylaxis required) Score 2: Moderate Risk (Intermittent/Pneumatic Compression Device OR Lovenox/Heparin/Coumadin) Score 3-4: High Risk (Intermittent/Pneumatic Compression Device AND Lovenox/Heparin/Coumadin) Score > or =5: Highest Risk (Intermittent/Pneumatic Compression Device AND Lovenox/Heparin/Coumadin) Antico:Hep/LMWH/Coum/Xarelto: No Mechanical device ordered: Yes Reasons not ordering prophylax: Renal impairment, At risk for falls, Tx not tolerated VTE VTE Present on Admission: No Currently receiving anticoagul: No VTE Risk Total Score: 3 Antico:Hep/LMWH/Coum/Xarelto: No Mechanical device ordered: Yes Exam Vital Signs Vital Signs Date Time Temp Pulse Resp B/P (MAP) Pulse Ox O2 Delivery O2 Flow Rate FiO2 11/09/20 20:02 98.1 109 22 131/75 (93) 97 Room Air General Appearance: Alert, Oriented X3, Cooperative HEENT: PERRLA, EOMI, Mucous membr. moist/pink Respiratory: Clear to auscultation, Normal air movement Cardiovascular: Normal S1, Other (irregularly irregular) Extremities: No clubbing, No cyanosis, No edema Skin: No rash, No breakdown, No lesions Neuro: Normal gait, Normal speech, Strength at 5/5 X4 ext, Normal tone Psych/Mental Status: Mental status NL, Mood NL Assessment/Plan Assessment/Plan Problems: (1) Delusional disorder Status: Acute Assessment & Plan: c/w risperdal started in [facility] upon DC ICD Code: F22 - Delusional disorders SNOMED: 14434057 (2) Atrial fibrillation Status: Chronic Assessment & Plan: HR up to 109 after metoprolol held, will resume 50mg BID; will also need fdc AC, though with his SHARRON and anemia, will hold off for now in favor of resuming at discharge. ICD Code: I48.91 - Unspecified atrial fibrillation SNOMED: 97415900 (3) DM2 (diabetes mellitus, type 2) Status: Chronic Assessment & Plan: euglycemic on diabetic diet and SSI ICD Code: E11.9 - Type 2 diabetes mellitus without complications SNOMED: 42069094 (4) Anemia Status: Chronic Assessment & Plan: unclear etiology, no acute bleed observed; c/w iron supplementation and give 2u PRBCs with recheck in am. ICD Code: D64.9 - Anemia, unspecified SNOMED: 477130294 (5) Hypertension Status: Chronic Assessment & Plan: transient hypotension this am, needs metoprolol for rate control. Will resume ramipril 5 as tolerated for cardiac benefit in CHF. ICD Code: I10 - Essential (primary) hypertension SNOMED: 55373931 (6) CHF (congestive heart failure) Status: Acute Assessment & Plan: plan to resume lasix in the am provided BP remains appropriate overnight; s/p 1.5L bolused today, so will avoid further bolused IVF in favor of product as above ICD Code: I50.9 - Heart failure, unspecified SNOMED: 04283928 (7) CKD (chronic kidney disease) Status: Chronic Assessment & Plan: CR baseline ~1.5, up to 2.6, anticipate improvement on recheck tomorrow after IVF today. ICD Code: N18.9 - Chronic kidney disease, unspecified SNOMED: 495175074 AVERY WHITLEY MD Nov 09, 2020 21:15
[2020-11-09] MEDS ORDERED: NS 500ML 500 ML IV ONE (21:31)
[2020-11-09 22:08] VITALS: BP 112/60
[2020-11-09 22:28] VITALS: BP 92/52
--- NOTE | 2020-11-09 22:41 | NUR ---
first unit of RBC started to IV site left wrist , infusing well started at 60 cc hour first 15 minutes than increased to 120 cc hour , patient no S/S of reaction
[2020-11-10] VITALS (7 sets, daily range): BP systolic 97–129; BP diastolic 47–71
--- NOTE | 2020-11-10 03:47 | NUR ---
2nd unit started slowly to left wrist IV site ,
--- NOTE | 2020-11-10 04:07 | NUR ---
remain with patient 1 st 20 mins no S/S of reaction , voices N/C
--- NOTE | 2020-11-10 06:13 | NUR ---
patient had BM formed stool brown in color , with small amount of red color around stool , stated has had hemorrhoids for years and has had surgey for them in the past .
--- NOTE | 2020-11-10 07:21 | PRM.PN ---
Subjective Subjective Date: Nov 10, 2020 Time: 07:18 Subjective Patient awake alert in bed currently getting blood he has no complaints no symptoms of transfusion reaction at this time no chest pain no shortness of breath. Patient does have some repetitive questioning VTE VTE Risk Total Score: 3 VTE Risk Score VTE Risk: Score 0-1 = Low Risk (Aggressive mobilization; early ambulation; no VTE prophylaxis required) Score 2: Moderate Risk (Intermittent/Pneumatic Compression Device OR Lovenox/Heparin/Coumadin) Score 3-4: High Risk (Intermittent/Pneumatic Compression Device AND Lovenox/Heparin/Coumadin) Score > or =5: Highest Risk (Intermittent/Pneumatic Compression Device AND Lovenox/Heparin/Coumadin) Antico:Hep/LMWH/Coum/Xarelto: No Mechanical device ordered: Yes Reasons not ordering prophylax: Renal impairment, At risk for falls, Tx not tolerated Review of Systems Constitutional: No: Fever, Chills, Sweats, Weakness, Malaise Eyes: No: Vision change, Conjunctivae inflammation, Eyelid inflammation ENT: No: Nose discharge, Nose congestion, Mouth pain Respiratory: No: Shortness of breath, SOB with excertion Cardiovascular: No: Palpitations, Orthopnea, Paroxysmal Noc. Dyspnea Gastrointestinal: No: Vomiting, Abdominal Pain, Diarrhea Genitourinary: No Frequency Musculoskeletal: No: neck pain, shoulder pain Skin: No: Lesions, Jaundice Neurological: No: Weakness, Numbness, Incoordination, Change in speech Allergies: Coded Allergies: No Known Allergies (Unverified , 10/31/20) Scheduled Atorvastatin 40MG (Lipitor 40MG), 1 TAB PO DAILY, (Reported) Ferrous Sulfate (Ferrous Sulfate), 1 TAB PO DAILY, (Reported) Gabapentin (Neurontin), 100 MG PO BID Melatonin (Melatonin), 3 MG PO HS Metoprolol Tartrate 50MG (Lopresser 50MG), 25 MG PO DAILY Risperidone (Risperdal), 1 MG PO TID Scheduled PRN Hydroxyzine Hcl (Hydroxyzine Hcl), 25 MG PO BID PRN for itching or anxiety Discontinued Medications Famotidine (Famotidine), 1 TAB PO BID, (Reported) Discontinued Reason: Discontinue Furosemide (Lasix), 40 MG PO DAILY24 Discontinued Reason: HOLD Glipizide (Glipizide), 1 TAB PO DAILY, (Reported) Discontinued Reason: Discontinue Meclizine Hcl (Meclizine Hcl), 12.5 MG PO DAILY24, (Reported) Discontinued Reason: Discontinue Metoprolol Succinate (Metoprolol Succinate), 1 TAB PO DAILY Discontinued Reason: Discontinue Mupirocin (Mupirocin), 1 APPLIC TP DAILY24, (Reported) Discontinued Reason: Discontinue Ramipril (Ramipril), 1 CAP PO QD, (Reported) Discontinued Reason: Discontinue Triamcinolone Acetonide (Triamcinolone Acetonide), 1 APPLIC TP DAILY24, (Reported) Discontinued Reason: Discontinue Objective General: Alert, Cooperative, No acute distress HEENT: PERRLA, EOMI, Mucous membr. moist/pink Lungs: Clear to auscultation, Normal air movement Heart: Normal S1, Other (irregularly irregular) Abdomen: Normal bowel sounds, Soft, No tenderness Extremities: No clubbing, No cyanosis, Other (Mild peripheral edema) Neuro: Normal speech, Strength at 5/5 X4 ext, Normal tone, Cranial nerves 3-12 NL Psych/Mental Status: Mood NL, Other (Mild repetitive questioning) All Results(Lab/Rad) Laboratory Tests Test 11/10/20 02:56 Hemoglobin 7.8 g/dL Hematocrit 23.7 % Current Medications Medications (Trade) Dose Ordered Sig/Reva Route PRN Reason Start Time Stop Time Status Last Admin Dose Admin Atorvastatin Calcium (Lipitor) 40 mg DAILY PO 11/10/20 09:00 12/10/20 08:59 Ferrous Sulfate (Ferrous Sulfate) 325 mg DAILY PO 11/10/20 09:00 12/10/20 08:59 Gabapentin (Neurontin) 100 mg BID PO 11/10/20 09:00 12/10/20 08:59 Melatonin (Melatonin) 3 mg HS PO 11/10/20 21:00 12/10/20 20:59 Metoprolol Succinate (Toprol Xl) 50 mg DAILY PO 11/10/20 09:00 12/10/20 08:59 Risperidone (Risperdal) 1 mg TID PO 11/10/20 09:00 12/10/20 08:59 Metoprolol Tartrate (Lopressor) 50 mg STAT STAT PO 11/09/20 21:07 11/09/20 22:02 DC 11/09/20 21:57 Furosemide (Lasix) 40 mg DAILY PO 11/10/20 09:00 12/10/20 08:59 Ramipril (Altace) 1.25 mg DAILY PO 11/10/20 09:00 12/10/20 08:59 Sodium Chloride 500 ml @ ud STK-MED ONCE IV 11/09/20 21:31 11/09/20 21:32 DC Insulin Human Lispro (Humalog) TIDM SQ 11/10/20 08:00 12/10/20 07:59 Course Sepsis Screening Results: Posi: NEGATIVE Sepsis Qualifier/Stage: NO DEFINITE RISK Vitals & review Data Laboratory Tests Test 11/10/20 02:56 Hemoglobin 7.8 g/dL Hematocrit 23.7 % Current Medications Medications (Trade) Dose Ordered Sig/Reva PRN Reason Start Time Stop Time Status Last Admin Atorvastatin Calcium (Lipitor) 40 mg DAILY 11/10/20 09:00 12/10/20 08:59 Ferrous Sulfate (Ferrous Sulfate) 325 mg DAILY 11/10/20 09:00 12/10/20 08:59 Furosemide (Lasix) 40 mg DAILY 11/10/20 09:00 12/10/20 08:59 Gabapentin (Neurontin) 100 mg BID 11/10/20 09:00 12/10/20 08:59 Insulin Human Lispro (Humalog) TIDM 11/10/20 08:00 12/10/20 07:59 Melatonin (Melatonin) 3 mg HS 11/10/20 21:00 12/10/20 20:59 Metoprolol Succinate (Toprol Xl) 50 mg DAILY 11/10/20 09:00 12/10/20 08:59 Ramipril (Altace) 1.25 mg DAILY 11/10/20 09:00 12/10/20 08:59 Risperidone (Risperdal) 1 mg TID 11/10/20 09:00 12/10/20 08:59 LEVEL 1 SEPSIS INFECTION CRITE: None/Not assessed LEVEL 2-SIRS (LIST ALL THAT AP: RR>20/min, HR>90/min, WBC<4000 Cardiovascular Evidence: Not Assessed or None Hematologic Evidence: None/Not assessed Hepatic Evidence: None/Not assessed Metabolic Evidence: None/Not assessed Neurological Evidence: None/Not assessed Respiratory Evidence: None/Not assessed Renal Evidence: None/Not assessed O2 Sat by Pulse Oximetry: 99 Assessment/Plan Assessment/Plan Assessment/Plan 1) Delusional disorder Status: Acute Assessment & Plan: c/w risperdal started in [facility] upon DC (2) Atrial fibrillation Status: Chronic Assessment & Plan: HR up to 109 after metoprolol held, will resume 50mg BID; 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 (3) DM2 (diabetes mellitus, type 2) Status: Chronic Assessment & Plan: euglycemic on diabetic diet and SSI (4) Anemia Status: Chronic Assessment & Plan: unclear etiology, no acute bleed observed; c/w iron suppl ementation and given 2u PRBCs with recheck at appropriate levels (5) Hypertension Status: Chronic Assessment & Plan: transient hypotension this am, needs metoprolol for rate control. Will resume ramipril 5 as tolerated for cardiac benefit in CHF. (6) CHF (congestive heart failure) Status: Acute Assessment & Plan: plan to resume lasix in the am provided BP remains appropriate overnight; s/p 1.5L bolused today, so will avoid further bolused IVF in favor of product as above (7) CKD (chronic kidney disease) Status: Chronic Assessment & Plan: CR baseline ~1.5, up to 2.6, improved on recheck after IVF today. ISRAEL ALEMAN MD Nov 10, 2020 07:21
[2020-11-10] MEDS ORDERED: HUMALOG SQ SCH (08:00)
[2020-11-10] MEDS ORDERED: TOPROL XL PO SCH (09:00)
[2020-11-10] MEDS ORDERED: RISPERDAL PO SCH (09:00)
[2020-11-10] MEDS ORDERED: LASIX PO SCH (09:00)
[2020-11-10] MEDS ORDERED: LIPITOR PO SCH (09:00)
[2020-11-10] MEDS ORDERED: ALTACE PO SCH (09:00)
[2020-11-10] MEDS ORDERED: FERROUS SULFATE PO SCH (09:00)
[2020-11-10] MEDS ORDERED: NEURONTIN PO SCH (09:00)
[2020-11-10 09:08] LABS: BASOPHIL # 1.3 10^3/uL (0.0-0.1); BASOPHIL % 20.8 % (0.0-0.2); EOSINOPHIL # 0.1 10^3/uL (0.0-0.2); LYMPHOCYTES # 0.75 10^3/uL1 (1.0-4.8); LYMPHOCYTES % 12.2 % (24.0-44.0); MEAN CORP HGB 32.3 pg (26-34); MONOCYTES # 0.3 10^3/uL (0.3-0.8); NEUTROPHIL # 3.8 10^3/uL (1.8-7.7); PLATELET COUNT 174 10^3/uL (150-400); RED CELL DISTRIBUTION WIDTH 17.2 % (11.5-14.5)
[2020-11-10 09:21] LABS: CALCIUM 8.6 mg/dL (8.4-10.5); CARBON DIOXIDE 22.9 mmol/L (20.0-32)
--- NOTE | 2020-11-10 09:41 | PRM.DC ---
Discharge Summary Date of Discharge: Nov 10, 2020 Time of Request to Discharge: 09:40 Hospital Course Mr. Berry is a pleasant 85yoM who was in the [facility] for treatment of delusional di sorder whose hemoglobin remained persistently low, in the 7.5-8.5 range. There was no evidence of active bleed, and he remained in that unit on iron supplementation. This morning, he was acutely lethargic with measured orthostatic hypotension for which his ramipril and lasix were held, and repeat Hb revealed a drop to 6.9. His blood pressure responded to IVF, but given the anemia and firm limits on fluid bolus volume due to his CHF, he was transferred to the med/surg floor for transfusion. He reports that the symptoms this morning were transient and has been ambulating without dizziness or difficulty for the rest of the day, including this evening. Transfused with 2 units and appropriate increase in hemoglobin. No active bleeding General: Alert, Cooperative HEENT: Atraumatic Neck: Supple, No JVD Lungs: Clear to auscultation, Normal air movement Heart: Regular rate Abdomen: Normal bowel sounds Extremities: No clubbing, No cyanosis, Other (mild edema) Skin: No rashes Neuro: Normal gait, Normal speech, Strength at 5/5 X4 ext, Normal tone, Sensation intact, Cranial nerves 3-12 NL Psych/Mental Status: Mood NL Scheduled Atorvastatin 40MG (Lipitor 40MG), 1 TAB PO DAILY, (Reported) Ferrous Sulfate (Ferrous Sulfate), 1 TAB PO DAILY, (Reported) Gabapentin (Neurontin), 100 MG PO BID Melatonin (Melatonin), 3 MG PO HS Metoprolol Tartrate 50MG (Lopresser 50MG), 25 MG PO DAILY Risperidone (Risperdal), 1 MG PO TID Scheduled PRN Hydroxyzine Hcl (Hydroxyzine Hcl), 25 MG PO BID PRN for itching or anxiety Discontinued Medications Famotidine (Famotidine), 1 TAB PO BID, (Reported) Discontinued Reason: Discontinue Furosemide (Lasix), 40 MG PO DAILY24 Discontinued Reason: HOLD Glipizide (Glipizide), 1 TAB PO DAILY, (Reported) Discontinued Reason: Discontinue Meclizine Hcl (Meclizine Hcl), 12.5 MG PO DAILY24, (Reported) Discontinued Reason: Discontinue Metoprolol Succinate (Metoprolol Succinate), 1 TAB PO DAILY Discontinued Reason: Discontinue Mupirocin (Mupirocin), 1 APPLIC TP DAILY24, (Reported) Discontinued Reason: Discontinue Ramipril (Ramipril), 1 CAP PO QD, (Reported) Discontinued Reason: Discontinue Triamcinolone Acetonide (Triamcinolone Acetonide), 1 APPLIC TP DAILY24, (Reported) Discontinued Reason: Discontinue Sepsis Evaluation @ Discharge Laboratory Tests Test 11/10/20 02:56 Hemoglobin 7.8 g/dL Hematocrit 23.7 % Current Medications Medications (Trade) Dose Ordered Sig/Reva PRN Reason Start Time Stop Time Status Last Admin Atorvastatin Calcium (Lipitor) 40 mg DAILY 11/10/20 09:00 12/10/20 08:59 Ferrous Sulfate (Ferrous Sulfate) 325 mg DAILY 11/10/20 09:00 12/10/20 08:59 Furosemide (Lasix) 40 mg DAILY 11/10/20 09:00 12/10/20 08:59 Gabapentin (Neurontin) 100 mg BID 11/10/20 09:00 12/10/20 08:59 Insulin Human Lispro (Humalog) TIDM 11/10/20 08:00 12/10/20 07:59 Melatonin (Melatonin) 3 mg HS 11/10/20 21:00 12/10/20 20:59 Metoprolol Succinate (Toprol Xl) 50 mg DAILY 11/10/20 09:00 12/10/20 08:59 Ramipril (Altace) 1.25 mg DAILY 11/10/20 09:00 12/10/20 08:59 Risperidone (Risperdal) 1 mg TID 11/10/20 09:00 12/10/20 08:59 Course Sepsis Screening Results: Posi: NEGATIVE Sepsis Qualifier/Stage: NO DEFINITE RISK Vitals & review Data Laboratory Tests Test 11/10/20 02:56 Hemoglobin 7.8 g/dL Hematocrit 23.7 % Current Medications Medications (Trade) Dose Ordered Sig/Reva PRN Reason Start Time Stop Time Status Last Admin Atorvastatin Calcium (Lipitor) 40 mg DAILY 11/10/20 09:00 12/10/20 08:59 Ferrous Sulfate (Ferrous Sulfate) 325 mg DAILY 11/10/20 09:00 12/10/20 08:59 Furosemide (Lasix) 40 mg DAILY 11/10/20 09:00 12/10/20 08:59 Gabapentin (Neurontin) 100 mg BID 11/10/20 09:00 12/10/20 08:59 Insulin Human Lispro (Humalog) TIDM 11/10/20 08:00 12/10/20 07:59 Melatonin (Melatonin) 3 mg HS 11/10/20 21:00 12/10/20 20:59 Metoprolol Succinate (Toprol Xl) 50 mg DAILY 11/10/20 09:00 12/10/20 08:59 Ramipril (Altace) 1.25 mg DAILY 11/10/20 09:00 12/10/20 08:59 Risperidone (Risperdal) 1 mg TID 11/10/20 09:00 12/10/20 08:59 LEVEL 1 SEPSIS INFECTION CRITE: None/Not assessed LEVEL 2-SIRS (LIST ALL THAT AP: RR>20/min, HR>90/min, WBC<4000 Cardiovascular Evidence: Not Assessed or None Hematologic Evidence: None/Not assessed Hepatic Evidence: None/Not assessed Metabolic Evidence: None/Not assessed Neurological Evidence: None/Not assessed Respiratory Evidence: None/Not assessed Renal Evidence: None/Not assessed O2 Sat by Pulse Oximetry: 98 Plan Assessment 1) Delusional disorder Status: Acute Assessment & Plan: c/w risperdal started in [facility] upon DC (2) Atrial fibrillation Status: Chronic Assessment & Plan: HR up to 109 after metoprolol held, will resume 50mg BID; will also need ad terminal makeup operator AC, though with his SHARRON and anemia, will hold off for now in favor of resuming at discharge. (3) DM2 (diabetes mellitus, type 2) Status: Chronic Assessment & Plan: euglycemic on diabetic diet and SSI (4) Anemia Status: Chronic Assessment & Plan: unclear etiology, no acute bleed observed; c/w iron supplementation and given 2u PRBCs with recheck at appropriate levels (5) Hypertension Status: Chronic Assessment & Plan: transient hypotension this am, needs metoprolol for rate control. Will resume ramipril 5 as tolerated for cardiac benefit in CHF. (6) CHF (congestive heart failure) Status: Acute Assessment & Plan: plan to resume lasix in the am provided BP remains appropriate overnight; s/p 1.5L bolused today, so will avoid further bolused IVF in favor of product as above (7) CKD (chronic kidney disease) Status: Chronic Assessment & Plan: CR baseline ~1.5, up to 2.6, improved on recheck after IVF today. Discharged to the behavioral health unit today ISRAEL ALEMAN MD Nov 10, 2020 09:41
--- NOTE | 2020-11-10 11:17 | NUR ---
d/c d/c instructions and report given to mariaa nieves rn. verbalized and written understanding. no s/s of distress noted. pt off of unit to [facility] via w/c. relinquished care of pt.
[2020-11-10 12:42] LABS: ANISOCYTOSIS 2+ (NEGATIVE); BAND NEUTROPHILS 6 % (2-6); BURR CELLS 1+ (NEGATIVE); EOSINOPHIL 2 % (1-4); LYMPHOCYTE 10 % (25-36); MONOCYTE 4 % (3-9); SEGMENTED NEUTROPHILS 78 % (31-76)
[2020-11-10 12:43] LABS: NUCLEATED RED BLOOD CELLS 1 % (0-0); OVALOCYTES 2+ (NEGATIVE); SCHISTOCYTES 1+ (NEGATIVE)
[2020-11-10] MEDS ORDERED: MELATONIN PO SCH (21:00)
== END 2020-11-10 11:35 ==
LOC: UNDOADMOB 15:00 → MS 15:00 → INTOOBSV 15:00
PROVIDERS: ADMIT Surgery; ATTEND Surgery
DX: D64.9 Anemia, unspecified (principal); F22 Delusional disorders; I48.91 Unspecified atrial fibrillation; I13.0 Hypertensive heart and chronic kidney disease with heart failure and stage 1 through stage 4 chronic kidney disease, or unspecified chronic kidney disease; E11.22 Type 2 diabetes mellitus with diabetic chronic kidney disease; I50.9 Heart failure, unspecified; N18.9 Chronic kidney disease, unspecified; Z79.899 Other long term (current) drug therapy
CPT/HCPCS: 36415 ×2; 36430 ×2; 80048; 83880; 85014; 85018; 85025; 86885; 86900; 86901; 86922; G0378 ×2; J7040; P9016 ×2